=== PATIENT | male | born 1945 | race Two or more races ===

== ENCOUNTER → 2016-11-07 | Outpatient (CLI) | payer MEDICARE, MEDICAID ==
[~2016-11-07] MED LIST: AML5T PO; ATEN50TA PO; HYDR25TA4 PO; NOR10T PO
== END | disposition home or self-care (01) ==
LOC: Rad HDHVI 09:14
PROVIDERS: ATTEND Internal Medicine Cardiovascular Disease
DX: K86.89 Other specified diseases of pancreas (principal)
CPT/HCPCS: 93306

== ENCOUNTER → 2016-12-29 | Outpatient (CLI) | payer MEDICARE, MEDICAID ==
[2016-12-29 12:52] LABS: Basophils # (auto) 0 uL; Basophils % (auto) 0.5 % (0.0-2.0); CONDITION Y; Eosinophils # (auto) 0.1 uL; Eosinophils % (auto) 1.6 % (0.0-7.0); Hematocrit 50.7 % (41.0-53.0); Lymphocytes # (auto) 1.4 uL; Lymphocytes % (auto) 14.8 % (10.0-50.0); Mean Corpuscular Hemoglobin 30.8 pg (28.0-32.0); Mean Corpuscular Hgb Conc. 33.6 g/dL (32.0-36.0); Mean Corpuscular Volume 91.6 fL (80.0-100.0); Mean Platelet Volume 8.1 fL (7.4-10.4); Monocytes # (auto) 0.7 uL; Neutrophils # (auto) 6.9 uL; Neutrophils % (auto) 75.1 % (37.0-80.0); Platelet Count (auto) 269 10^3/uL (140-450); Red Cell Distribution Width 15.4 % (11.6-16.0); White Blood Cell 9.2 10^3/uL (4.4-10.8)
[2016-12-29 12:58] LABS: Albumin 4.2 g/dL (3.4-5.0); BUN/Creatinine Ratio 20.4; Bilirubin, Direct 0.5 mg/dL (0-0.2); Bilirubin, Total 2.8 mg/dL (0.2-1.0); Calcium 9.2 mg/dL (8.5-10.1); Potassium 4.4 mmol/L (3.5-5.1); Total Protein 8.4 g/dL (6.4-8.2)
[2016-12-29 13:15] LABS: Urine Bilirubin Negative (Negative); Urine Blood Negative /uL (Negative); Urine Color PINK (Yellow); Urine Glucose Normal (Normal); Urine Ketone Negative (Negative); Urine Nitrite Negative (Negative); Urine Urobilinogen Normal (Negative)
== END | disposition home or self-care (01) ==
LOC: LAB 08:49
PROVIDERS: ATTEND Internal Medicine Cardiovascular Disease
DX: I10 Essential (primary) hypertension (principal); E78.00 Pure hypercholesterolemia, unspecified; K74.1 Hepatic sclerosis; E11.9 Type 2 diabetes mellitus without complications; R97.20 Elevated prostate specific antigen [PSA]; R53.81 Other malaise; E03.9 Hypothyroidism, unspecified; D64.9 Anemia, unspecified; E55.9 Vitamin D deficiency, unspecified; N39.0 Urinary tract infection, site not specified
CPT/HCPCS: 36415; 80048; 80061; 80076; 81003; 82306; 83036; 84153; 84403; 84443; 85025; 87086

== ENCOUNTER → 2017-02-05 | Outpatient (CLI) | payer MEDICARE, MEDICAID ==
[2017-02-05 16:38] LABS: BUN/Creatinine Ratio 18.8; Calcium 9.3 mg/dL (8.5-10.1); Magnesium 2.5 mg/dL (1.6-2.6); Potassium 3.7 mmol/L (3.5-5.1)
== END | disposition home or self-care (01) ==
LOC: LAB 12:26
PROVIDERS: ATTEND Internal Medicine Cardiovascular Disease
DX: I10 Essential (primary) hypertension (principal); E83.40 Disorders of magnesium metabolism, unspecified
CPT/HCPCS: 36415; 80048; 83735

== ENCOUNTER → 2017-03-02 | Outpatient (CLI) | payer MEDICARE, MEDICAID ==
[~2017-03-02] VITALS: Ht 165.1 cm; Wt 72.6 kg
[~2017-03-02] MED LIST changes: +ADENOSINE 61 MG in GIVE UN-DILUTED 0 ML IV ONE; +ADENOSINE 90 MG/30 ML INJ IV ONE
== END | disposition home or self-care (01) ==
LOC: Rad HDHVI 08:17
PROVIDERS: ATTEND Internal Medicine Cardiovascular Disease
DX: I11.0 Hypertensive heart disease with heart failure (principal); I50.9 Heart failure, unspecified; I20.9 Angina pectoris, unspecified; E78.00 Pure hypercholesterolemia, unspecified
CPT/HCPCS: 78452; 93005; 96374; 96375; A9500; J0153

== ENCOUNTER → 2018-01-02 | Outpatient (CLI) | payer MEDICARE, MEDICAID ==
[~2018-01-02] MED LIST changes: -ADENOSINE 61 MG in GIVE UN-DILUTED 0 ML IV ONE; -ADENOSINE 90 MG/30 ML INJ IV ONE
== END | disposition home or self-care (01) ==
LOC: Rad HDHVI 09:46
PROVIDERS: ATTEND Internal Medicine Cardiovascular Disease
DX: M47.892 Other spondylosis, cervical region (principal); I11.0 Hypertensive heart disease with heart failure; I50.23 Acute on chronic systolic (congestive) heart failure; I48.0 Paroxysmal atrial fibrillation; E78.00 Pure hypercholesterolemia, unspecified
CPT/HCPCS: 72040

== ENCOUNTER → 2018-01-22 | Outpatient (CLI) | payer MEDICARE, MEDICAID | END | disposition home or self-care (01) | LOC: Rad HDHVI 15:22 | PROVIDERS: ATTEND Internal Medicine Cardiovascular Disease | DX: I67.2 Cerebral atherosclerosis (principal); I67.82 Cerebral ischemia; I07.1 Rheumatic tricuspid insufficiency; I25.5 Ischemic cardiomyopathy; I48.0 Paroxysmal atrial fibrillation; I50.23 Acute on chronic systolic (congestive) heart failure; Z88.8 Allergy status to other drugs, medicaments and biological substances; Z79.899 Other long term (current) drug therapy | CPT/HCPCS: 70450; 93306 ==

== ENCOUNTER → 2018-02-18 | Outpatient (CLI) | payer MEDICARE, MEDICAID ==
[~2018-02-18] MED LIST changes: +FEBU40TA PO; +INDO25CA14 PO; +MAGN400T5 PO; +RIV15T PO; +SACU1TAB PO
[2018-02-18 09:20] VITALS: BP 120/64
[2018-02-18 09:50] VITALS: BP 119/74
[2018-02-18 12:53] LABS: Partial Thromboplastin Time 28.8 sec (23.78-33.04); Prothrombin Time 10.7 sec (9.27-12.13)
[2018-02-18 13:11] LABS: Basophils # (auto) 0 uL; Basophils % (auto) 0.5 % (0.0-2.0); Eosinophils # (auto) 0.2 uL; Eosinophils % (auto) 2.6 % (0.0-7.0); Hematocrit 49.7 % (41.0-53.0); Hemoglobin 16.3 g/dL (13.5-17.5); Lymphocytes # (auto) 1.2 uL; Mean Corpuscular Hemoglobin 30.2 pg (28.0-32.0); Mean Corpuscular Hgb Conc. 32.8 g/dL (32.0-36.0); Mean Corpuscular Volume 92.2 fL (80.0-100.0); Monocytes # (auto) 0.9 uL; Monocytes % (auto) 9.6 % (0.0-12.0); Neutrophils # (auto) 6.8 uL; Neutrophils % (auto) 74.3 % (37.0-80.0); Platelet Count (auto) 190 10^3/uL (140-450); Red Blood Cells 5.39 10^6/uL (4.5-5.90); White Blood Cell 9.1 10^3/uL (4.4-10.8)
[2018-02-18 13:43] LABS: BUN/Creatinine Ratio 17.4; Calcium 8.7 mg/dL (8.5-10.1)
== END | disposition home or self-care (01) ==
LOC: Rad HDHVI 09:04
PROVIDERS: ATTEND Internal Medicine Cardiovascular Disease
DX: Z01.818 Encounter for other preprocedural examination (principal); I10 Essential (primary) hypertension; L92.9 Granulomatous disorder of the skin and subcutaneous tissue, unspecified; D64.9 Anemia, unspecified; R79.1 Abnormal coagulation profile; I42.9 Cardiomyopathy, unspecified; I51.7 Cardiomegaly; R94.31 Abnormal electrocardiogram [ECG] [EKG]
CPT/HCPCS: 36415; 71046; 80048; 85025; 85610; 85730; 93005; G0463

== ENCOUNTER 2018-02-21 06:58 | Inpatient (IN) | payer MEDICARE, MEDICAID ==
[~2018-02-21] VITALS: Ht 165.1 cm; Wt 73.9 kg
[2018-02-21] MEDS ORDERED: ceFAZolin 1GM/50ML 50 ML IV ONE (07:54)
[2018-02-21] MEDS ORDERED: LIDOCAINE 2%HCL (LOCAL ANESTH.) INJ 20ML MDV ONE (08:00)
[2018-02-21] MEDS ORDERED: IOHEXOL 350 MG/ML 100ML IJ ONE ×2 (08:01→09:22)
[2018-02-21] MEDS ORDERED: fentaNYL CITRATE 100 MCG/2 ML VL ONE (09:11)
[2018-02-21] MEDS ORDERED: VANCOMYCIN HCL 1000 MG VL ONE (09:11)
[2018-02-21] MEDS ORDERED: MIDAZOLAM HCL 1MG/1ML-2 ML VIAL ONE (09:12)
[2018-02-21] MEDS ORDERED: VANCOMYCIN 1GM/250ML 250 ML IV ONE ×2 (09:12→21:51)
[2018-02-21] MEDS ORDERED: LIDOCAINE W/ EPINEPHRINE 2% INJ 20ML VIAL ONE (10:27)
[2018-02-21] MEDS ORDERED: ACETAMINOPHEN 325 MG TAB PO PRN (11:00)
[2018-02-21] MEDS ORDERED: MORPHINE SULFATE 4 MG/ML SYR/VIAL IV PRN (11:00)
[2018-02-21] MEDS ORDERED: NITROGLYCERIN 0.4 MG SL TAB SL PRN (11:00)
[2018-02-21] MEDS: MAGNESIUM OXIDE 400 MG TAB PO SCH (11:30)
[2018-02-21] MEDS ORDERED: SACUBITRIL-VALSARTAN 24mg/26mg TAB PO SCH (11:45)
[2018-02-21] MEDS ORDERED: HCTZ 25 MG TAB PO SCH (12:00)
[2018-02-21] MEDS: HYDROcodone-ACET 10/325MG TAB PO PRN ×2 (12:15→19:00)
[2018-02-21 14:00] VITALS: BP 122/68
[2018-02-21 14:46] VITALS: BP 122/68
[2018-02-21 17:00] VITALS: BP 125/83
[2018-02-21] MEDS: VANCOMYCIN 1GM/250ML 250 ML IV SCH (21:48)
[2018-02-21] MEDS: SACUBITRIL-VALSARTAN 24mg/26mg TAB PO SCH ×2 (21:48→21:55)
[2018-02-21 22:00] VITALS: BP 139/85
[2018-02-22 05:00] VITALS: BP 120/75
[2018-02-22] MEDS: HYDROcodone-ACET 10/325MG TAB PO PRN ×2 (08:09→16:14)
[2018-02-22 09:13] VITALS: BP 125/83
[2018-02-22] MEDS ORDERED: Febuxostat (Uloric) 40MG TAB PO SCH (10:00)
[2018-02-22] MEDS ORDERED: ATENOLOL 50 MG TAB PO SCH (10:00)
[2018-02-22] MEDS ORDERED: HCTZ 25 MG TAB PO SCH (10:00)
[2018-02-22] MEDS: VANCOMYCIN 1GM/250ML 250 ML IV SCH (10:25)
[2018-02-22] MEDS: MAGNESIUM OXIDE 400 MG TAB PO SCH (11:18)
[2018-02-22 12:20] VITALS: BP 114/73
[2018-02-22 15:21] VITALS: BP 118/60
[2018-02-22 16:43] VITALS: BP 118/77
[2018-02-23] MEDS ORDERED: amLODIPine BESYLATE 5 MG TAB PO SCH (10:00)
== END 2018-02-22 17:14 | disposition home or self-care (01) | DRG 226 ==
LOC: CATH 06:58 → TELE-EAST 06:59
PROVIDERS: ADMIT Internal Medicine Cardiovascular Disease; ATTEND Internal Medicine Cardiovascular Disease
PROC: 0JH608Z Insertion of Defibrillator Generator into Chest Subcutaneous Tissue and Fascia, Open Approach (ICD-10-PCS; principal; 2018-02-21)
PROC: 02HK3KZ Insertion of Defibrillator Lead into Right Ventricle, Percutaneous Approach (ICD-10-PCS; 2018-02-21)
PROC: 02HL3KZ Insertion of Defibrillator Lead into Left Ventricle, Percutaneous Approach (ICD-10-PCS; 2018-02-21)
PROC: 02H63KZ Insertion of Defibrillator Lead into Right Atrium, Percutaneous Approach (ICD-10-PCS; 2018-02-21)
DX: I42.9 Cardiomyopathy, unspecified (principal); I50.23 Acute on chronic systolic (congestive) heart failure; D68.59 Other primary thrombophilia; I11.0 Hypertensive heart disease with heart failure; I48.2 Chronic atrial fibrillation; Z95.810 Presence of automatic (implantable) cardiac defibrillator
CPT/HCPCS: 33225; 33249; 36415; 71045; 71046; 80048; 85025; 85610; 85730; 93005; 99152; C1769; G0463; J0690; J2250

== ENCOUNTER → 2018-03-14 | Outpatient (CLI) | payer MEDICARE, MEDICAID | END | disposition home or self-care (01) | LOC: Rad HDHVI 14:56 | PROVIDERS: ATTEND Internal Medicine Cardiovascular Disease | DX: I25.5 Ischemic cardiomyopathy (principal); I50.23 Acute on chronic systolic (congestive) heart failure | CPT/HCPCS: 93306 ==

== ENCOUNTER → 2018-05-15 | Outpatient (CLI) | payer MEDICARE, MEDICAID ==
[~2018-05-15] MED LIST changes: +AMIO400T3 PO; +DIGO0.1262 PO; +RIVA20TA PO
[2018-05-15 14:35] VITALS: BP 143/78
[2018-05-15 14:53] VITALS: BP 124/83
[2018-05-15 16:22] LABS: Calcium 8.5 mg/dL (8.5-10.1); Potassium 3.8 mmol/L (3.5-5.1)
[2018-05-15 16:23] LABS: Basophils # (auto) 0.1 uL; Basophils % (auto) 0.6 % (0.0-2.0); Eosinophils # (auto) 0.1 uL; Eosinophils % (auto) 1.7 % (0.0-7.0); Hematocrit 50.4 % (41.0-53.0); Lymphocytes # (auto) 1.9 uL; Lymphocytes % (auto) 22.7 % (10.0-50.0); Mean Corpuscular Hgb Conc. 33.6 g/dL (32.0-36.0); Mean Corpuscular Volume 98.2 fL (80.0-100.0); Monocytes # (auto) 0.8 uL; Monocytes % (auto) 9.4 % (0.0-12.0); Neutrophils # (auto) 5.6 uL; Neutrophils % (auto) 65.6 % (37.0-80.0); Nucleated Red Blood Cells % 0.2 %; Platelet Count (auto) 220 10^3/uL (140-450); Red Blood Cells 5.13 10^6/uL (4.5-5.90); Red Cell Distribution Width 16.7 % (11.8-14.3); White Blood Cell 8.5 10^3/uL (4.4-10.8)
[2018-05-15 16:24] LABS: BUN/Creatinine Ratio 10.2
[2018-05-15 16:40] LABS: INR 1.6 (0.9-1.15); Partial Thromboplastin Time 43.6 sec (23.78-33.04); Prothrombin Time 16.7 sec (9.27-12.13)
== END | disposition home or self-care (01) ==
LOC: Rad HDHVI 13:35
PROVIDERS: ATTEND Internal Medicine Cardiovascular Disease
DX: Z01.812 Encounter for preprocedural laboratory examination (principal); I11.0 Hypertensive heart disease with heart failure; I50.9 Heart failure, unspecified; I48.91 Unspecified atrial fibrillation; D64.9 Anemia, unspecified; R79.1 Abnormal coagulation profile
CPT/HCPCS: 36415; 71046; 80048; 85025; 85610; 85730; 93005; G0463

== ENCOUNTER 2018-05-16 12:07 | Day surgery (SDC) | payer MEDICARE, MEDICAID ==
[~2018-05-16] VITALS: Ht 165.1 cm; Wt 68.0 kg
[~2018-05-16 12:07] MED LIST changes: -AML5T PO; -DIGO0.1262 PO; -FEBU40TA PO; -HYDR25TA4 PO; -MAGN400T5 PO; -RIVA20TA PO
[2018-05-16] MEDS ORDERED: FLUMAZENIL 0.1 MG/ML INJ 10ML MDV IV ONE (12:30)
[2018-05-16] MEDS ORDERED: MIDAZOLAM HCL 1MG/1ML-2 ML VIAL IV ONE (12:30)
[2018-05-16] MEDS ORDERED: DIGO0.1262 PO (12:34)
[2018-05-16] MEDS ORDERED: RIVA20TA PO (12:34)
[2018-05-16] MEDS ORDERED: NALOXONE HCL 0.4 MG/ML VIAL ONE (13:30)
[2018-05-16] MEDS ORDERED: fentaNYL CITRATE 100 MCG/2 ML VL ONE (13:31)
== END 2018-05-16 15:00 | disposition home or self-care (01) ==
LOC: CATH 12:07
PROVIDERS: ATTEND Internal Medicine Cardiovascular Disease
DX: I48.91 Unspecified atrial fibrillation (principal); I42.9 Cardiomyopathy, unspecified; I10 Essential (primary) hypertension; I25.2 Old myocardial infarction; I73.9 Peripheral vascular disease, unspecified; M10.9 Gout, unspecified; Z82.49 Family history of ischemic heart disease and other diseases of the circulatory system; Z86.73 Personal history of transient ischemic attack (TIA), and cerebral infarction without residual deficits
CPT/HCPCS: 92960; J2250; J7030

== ENCOUNTER → 2018-05-31 | Outpatient (CLI) | payer MEDICARE, MEDICAID ==
[~2018-05-31] MED LIST changes: +CYANOCOBALAMIN (B-12) 1000 MCG/1 ML VIAL IM ONE; +CYANOCOBALAMIN (B-12) 1000 MCG/1 ML VIAL ONE; +DIGO0.1262 PO; -INDO25CA14 PO; +MVI in SODIUM CHLORIDE 0.9% 1,010 ML ONE; -RIV15T PO; +RIVA20TA PO; +THIAMINE INJ 100 MG, MULTIPLE VITAMIN 10 ML, FOLIC ACID 1 MG, MAGNESIUM SULF SDV 50% 8 ... IV ONE
[2018-05-31 14:59] VITALS: BP 79/43
--- NOTE | 2018-05-31 14:59 | NUR ---
PATIENT IN CLINIC FOR DIZZYNESS AND FALL AT HOME. PATIENT HAD A CARDIOVERSION ABOUT 2 WEEKS AGO, PATIENT HAS AN AICD. PATIENT UNAWARE OF PACEMAKER BRAND. PATIENT EDUCATED THAT HE HAS A BIOTRONIK PACEMAKER, PT AND DAUGHTER VERBALIZED UNDERSTANDING.
--- NOTE | 2018-05-31 15:20 | NUR ---
IV insertion IV access obtained, via clean sterile technique by inserting 20 gauge catheter at RAC after 1 attempt(s). IV secured properly. No trauma to site. Patient tolerated procedure well. LABS DRAWN AND SENT TO LAB
[2018-05-31 16:10] LABS: Albumin 3.3 g/dL (3.4-5.0); Calcium 8.1 mg/dL (8.5-10.1); Magnesium 2.4 mg/dL (1.6-2.6); Potassium 3.8 mmol/L (3.5-5.1)
[2018-05-31 16:16] LABS: Basophils # (auto) 0.1 uL; Basophils % (auto) 0.5 % (0.0-2.0); Eosinophils # (auto) 0.1 uL; Eosinophils % (auto) 1.5 % (0.0-7.0); Hematocrit 49.8 % (41.0-53.0); Hemoglobin 16.8 g/dL (13.5-17.5); Lymphocytes # (auto) 2.1 uL; Lymphocytes % (auto) 21.7 % (10.0-50.0); Mean Corpuscular Hemoglobin 33.3 pg (28.0-32.0); Mean Corpuscular Hgb Conc. 33.7 g/dL (32.0-36.0); Mean Corpuscular Volume 98.8 fL (80.0-100.0); Monocytes % (auto) 10.5 % (0.0-12.0); Neutrophils # (auto) 6.3 uL; Neutrophils % (auto) 65.8 % (37.0-80.0); Nucleated Red Blood Cells % 0.1 %; Platelet Count (auto) 197 10^3/uL (140-450); Red Blood Cells 5.04 10^6/uL (4.5-5.90); Red Cell Distribution Width 15.4 % (11.8-14.3); White Blood Cell 9.6 10^3/uL (4.4-10.8)
[2018-05-31 16:17] LABS: BUN/Creatinine Ratio 15.2; Total Protein 6.2 g/dL (6.4-8.2)
--- NOTE | 2018-05-31 16:30 | NUR ---
DR HAMMER AWARE OF EKG, LAB AND INTERROGATION RESULTS.
[2018-05-31 17:15] VITALS: BP 95/53
--- NOTE | 2018-05-31 17:15 | NUR ---
CHF CLINIC Discharge Instructions See e-MAR for any mediations given with this visit. Patient education given on disease process. Patient verbalized understanding. Previous labs reviewed. Patient discharged in stable condition with after care instructions and follow up appointment 06/01/18 AT 1020. NOTE 0.9 NS WITH MVI [id number] ADMIN BY DONALD KELLY B12 IM R DELTOID ADMIN BY MICHAEL KELLY PATIENT EDUCATED TO STOP TAKING DIGOXIN, DAUGHTER VERBALIZED UNDERSTANDING. PATIENT TO SEE DR HAMMER TOMORROW FOR FURTHER MEDICATION ADJUSTMENT.
== END | disposition home or self-care (01) ==
LOC: CHF HDHVI 15:03
PROVIDERS: ATTEND Internal Medicine Cardiovascular Disease
DX: R42 Dizziness and giddiness (principal); R53.1 Weakness; I48.2 Chronic atrial fibrillation; D64.9 Anemia, unspecified; E83.40 Disorders of magnesium metabolism, unspecified; I11.0 Hypertensive heart disease with heart failure; I50.22 Chronic systolic (congestive) heart failure; I42.9 Cardiomyopathy, unspecified; I25.2 Old myocardial infarction; E78.00 Pure hypercholesterolemia, unspecified; E03.9 Hypothyroidism, unspecified; E78.5 Hyperlipidemia, unspecified; M06.9 Rheumatoid arthritis, unspecified; K21.9 Gastro-esophageal reflux disease without esophagitis; Z79.899 Other long term (current) drug therapy; Z95.810 Presence of automatic (implantable) cardiac defibrillator; Z86.73 Personal history of transient ischemic attack (TIA), and cerebral infarction without residual deficits
CPT/HCPCS: 36415; 80053; 80162; 83735; 83880; 84484; 85025; 93005; 96365; 96366; 96372; G0463; J3411; J3420; J3475

== ENCOUNTER → 2018-06-10 | Outpatient (CLI) | payer MEDICARE, MEDICAID ==
[~2018-06-10] VITALS: Ht 30.5 cm; Wt 0.5 kg
[~2018-06-10] MED LIST changes: -MVI in SODIUM CHLORIDE 0.9% 1,010 ML ONE; -THIAMINE INJ 100 MG, MULTIPLE VITAMIN 10 ML, FOLIC ACID 1 MG, MAGNESIUM SULF SDV 50% 8 ... IV ONE
[2018-06-10 10:11] VITALS: BP 97/63
--- NOTE | 2018-06-10 10:11 | NUR ---
CHF PT TO CHF CLINIC FOR F/U AFTER 06/03/18 VISIT. MD HAMMER ORDERED LABS AND VIT B 12 INJECTION FOR RECENT MALAISE AND FATIGUE.
[2018-06-10 10:55] VITALS: BP 95/51
--- NOTE | 2018-06-10 10:55 | NUR ---
CHF Discharge Instructions See e-MAR for any mediations given with this visit. Patient education given on disease process. Patient verbalized understanding. Previous labs reviewed. Patient discharged in stable condition with after care instructions and follow up appointment. Addendum: 06/10/18 at 1146 by Pili Burns RN [place] CHF FOLLOW UP IN 2 WEEKS.
[2018-06-10 11:53] LABS: Basophils # (auto) 0.1 uL; Eosinophils # (auto) 0.2 uL; Monocytes # (auto) 0.7 uL; Neutrophils # (auto) 5.2 uL; White Blood Cell 7.4 10^3/uL (4.4-10.8)
[2018-06-10 11:55] LABS: Basophils % (auto) 1.2 % (0.0-2.0); Eosinophils % (auto) 2.4 % (0.0-7.0); Hematocrit 46.6 % (41.0-53.0); Hemoglobin 15.8 g/dL (13.5-17.5); Lymphocytes # (auto) 1.3 uL; Mean Corpuscular Hemoglobin 33.6 pg (28.0-32.0); Mean Corpuscular Volume 98.8 fL (80.0-100.0); Monocytes % (auto) 9.2 % (0.0-12.0); Neutrophils % (auto) 69.2 % (37.0-80.0); Platelet Count (auto) 240 10^3/uL (140-450); Red Blood Cells 4.72 10^6/uL (4.5-5.90); Red Cell Distribution Width 15.8 % (11.8-14.3)
[2018-06-10 12:03] LABS: Anion Gap 6 (5-15); Blood Urea Nitrogen 22 mg/dL (7-18); Calcium 8.1 mg/dL (8.5-10.1); Carbon Dioxide 28 mmol/L (21-32); Chloride 105 mmol/L (98-107); Potassium 3.6 mmol/L (3.5-5.1); Sodium 139 mmol/L (136-145)
[2018-06-10 12:06] LABS: BUN/Creatinine Ratio 19.6; GFR African American > 60 mL/min; GFR Non-African American > 60 mL/min; Glucose 88 mg/dL (74-106)
== END | disposition home or self-care (01) ==
LOC: CHF HDHVI 10:03
PROVIDERS: ATTEND Internal Medicine Cardiovascular Disease
DX: D64.9 Anemia, unspecified (principal); I11.0 Hypertensive heart disease with heart failure; I50.22 Chronic systolic (congestive) heart failure; E11.51 Type 2 diabetes mellitus with diabetic peripheral angiopathy without gangrene; I25.10 Atherosclerotic heart disease of native coronary artery without angina pectoris; I25.2 Old myocardial infarction; I48.2 Chronic atrial fibrillation; M06.9 Rheumatoid arthritis, unspecified; K21.9 Gastro-esophageal reflux disease without esophagitis; K74.1 Hepatic sclerosis; E03.9 Hypothyroidism, unspecified; E29.1 Testicular hypofunction; I25.5 Ischemic cardiomyopathy; E55.9 Vitamin D deficiency, unspecified; M19.90 Unspecified osteoarthritis, unspecified site; R53.81 Other malaise; R53.83 Other fatigue; Z79.899 Other long term (current) drug therapy; Z95.810 Presence of automatic (implantable) cardiac defibrillator; Z86.73 Personal history of transient ischemic attack (TIA), and cerebral infarction without residual deficits
CPT/HCPCS: 36415; 80048; 82306; 83036; 83880; 84403; 85025; 96372; G0463; J3420

== ENCOUNTER → 2018-06-17 | Outpatient (CLI) | payer MEDICARE, MEDICAID ==
[~2018-06-17] MED LIST changes: -CYANOCOBALAMIN (B-12) 1000 MCG/1 ML VIAL IM ONE; -CYANOCOBALAMIN (B-12) 1000 MCG/1 ML VIAL ONE
--- NOTE | 2018-06-17 10:10 | NUR ---
CHF PT TO CHF CLINIC FOR REEVAL OF ALL BODY SYSTEMS. PT STATES BM NORMAL WITH AMITZIA, APPETITE AND ENERGY LEVEL INCREASED AND HAS F/U WITH DR. JAQUELIN KOCH 06/19/18
--- NOTE | 2018-06-17 10:27 | NUR ---
CHF Clinic Provider Clinic Provider DR. HAMMER pt with new orders received and carried out. CARDIODYNAMICS per MD order.
[2018-06-17 10:50] VITALS: BP 128/58
--- NOTE | 2018-06-17 10:50 | NUR ---
CHF Discharge Instructions See e-MAR for any mediations given with this visit. Patient education given on disease process. Patient verbalized understanding. Previous labs reviewed. Patient discharged in stable condition with after care instructions and follow up appointment. FOLLOW UPMIN 1 MONTH FOR MD ORDERED LABS AND REPEAT CARDIODYNAMICS. Addendum: 06/17/18 at 1118 by Pili Burns RN [place] PT VERB UNDERSTANDING VIA DIET CLERK CINDY BOBO
== END | disposition home or self-care (01) ==
LOC: CHF HDHVI 10:07
PROVIDERS: ATTEND Internal Medicine Cardiovascular Disease
DX: I50.9 Heart failure, unspecified (principal); I25.10 Atherosclerotic heart disease of native coronary artery without angina pectoris; I48.91 Unspecified atrial fibrillation
CPT/HCPCS: G0463

== ENCOUNTER → 2018-07-02 | Outpatient (CLI) | payer MEDICARE, MEDICAID ==
[~2018-07-02] MED LIST changes: +READI-CAT 2 (BARIUM SULF)(VANILLA SMOOTHIE) 450ML ONE
== END | disposition home or self-care (01) ==
LOC: CT 08:24
PROVIDERS: ATTEND Internal Medicine Cardiovascular Disease
DX: K80.80 Other cholelithiasis without obstruction (principal)
CPT/HCPCS: 74176

== ENCOUNTER → 2018-07-22 | Outpatient (CLI) | payer MEDICARE, MEDICAID ==
[~2018-07-22] MED LIST changes: -READI-CAT 2 (BARIUM SULF)(VANILLA SMOOTHIE) 450ML ONE
[2018-07-22 10:02] VITALS: BP 102/62
--- NOTE | 2018-07-22 10:02 | NUR ---
CHF PT ARRIVED TO CHF CLINIC FOR FOLLOW UP AND CARDIODYNAMICS. VSS OBTAINE PLAN OF CARE DISCUSSED PT VERBALIZED UNDERSTANDING
--- NOTE | 2018-07-22 10:50 | NUR ---
MEDICATION MD ORDERED AMITIZA 24MG SAMPLE. PROVIDED TO PATIENT DISCUSSED INDICATIONS, SIDE EFFECTS PT VERBALIZED UNDERSTANDING
--- NOTE | 2018-07-22 10:50 | NUR ---
CHF CARDIODYNAMICS STUDY PERFORMED, REVIEWED WITH PATIENT
[2018-07-22 11:22] VITALS: BP 101/66
--- NOTE | 2018-07-22 11:22 | NUR ---
Discharge Instructions See e-MAR for any mediations given with this visit. Patient education given on disease process. Patient verbalized understanding. Previous labs reviewed. Patient discharged in stable condition with after care instructions and follow up appointment.
[2018-07-22 16:13] LABS: Basophils # (auto) 0.1 uL; Basophils % (auto) 0.7 % (0.0-2.0); Eosinophils # (auto) 0.1 uL; Eosinophils % (auto) 1.7 % (0.0-7.0); Hemoglobin 15.7 g/dL (13.5-17.5); Lymphocytes # (auto) 1.4 uL; Mean Corpuscular Hemoglobin 33.7 pg (28.0-32.0); Mean Corpuscular Hgb Conc. 34.1 g/dL (32.0-36.0); Monocytes # (auto) 0.6 uL; Monocytes % (auto) 7.7 % (0.0-12.0); Neutrophils # (auto) 5.4 uL; Neutrophils % (auto) 71.9 % (37.0-80.0); Nucleated Red Blood Cells % 0.3 %; Platelet Count (auto) 206 10^3/uL (140-450); Red Blood Cells 4.64 10^6/uL (4.5-5.90); White Blood Cell 7.6 10^3/uL (4.4-10.8)
[2018-07-22 16:14] LABS: Albumin 3.5 g/dL (3.4-5.0); BUN/Creatinine Ratio 14.6; Calcium 8.2 mg/dL (8.5-10.1); Potassium 3.4 mmol/L (3.5-5.1)
[2018-07-22 16:17] LABS: Bilirubin, Total 1.4 mg/dL (0.2-1.0); Total Protein 6.6 g/dL (6.4-8.2)
== END | disposition home or self-care (01) ==
LOC: CHF HDHVI 10:01
PROVIDERS: ATTEND Internal Medicine Cardiovascular Disease
DX: D64.9 Anemia, unspecified (principal); I10 Essential (primary) hypertension
CPT/HCPCS: 36415; 80053; 85025; 93701; G0463

== ENCOUNTER → 2018-08-19 | Outpatient (CLI) | payer MEDICARE, MEDICAID ==
[2018-08-19 10:00] VITALS: BP_SYST 113; BP_SYST 116; BP_DIAS 70; BP_DIAS 75
--- NOTE | 2018-08-19 10:00 | NUR ---
PATIENT ARRUIVED IN CHF CLINIC FOR FOLLOW UP, VITAL SIGNS ARE STABLE
[2018-08-19 16:09] LABS: Basophils # (auto) 0.1 uL; Basophils % (auto) 0.8 % (0.0-2.0); Eosinophils # (auto) 0.1 uL; Eosinophils % (auto) 1.3 % (0.0-7.0); Hematocrit 45.1 % (41.0-53.0); Hemoglobin 15.3 g/dL (13.5-17.5); Lymphocytes # (auto) 0.9 uL; Lymphocytes % (auto) 14.4 % (10.0-50.0); Mean Corpuscular Hemoglobin 33.1 pg (28.0-32.0); Mean Corpuscular Volume 97.4 fL (80.0-100.0); Monocytes # (auto) 0.6 uL; Monocytes % (auto) 9.3 % (0.0-12.0); Neutrophils # (auto) 4.6 uL; Neutrophils % (auto) 74.2 % (37.0-80.0); Nucleated Red Blood Cells % 0.2 %; Platelet Count (auto) 191 10^3/uL (140-450); Red Blood Cells 4.63 10^6/uL (4.5-5.90); Red Cell Distribution Width 14.4 % (11.8-14.3); White Blood Cell 6.3 10^3/uL (4.4-10.8)
[2018-08-19 16:17] LABS: BUN/Creatinine Ratio 16.5; Calcium 8.5 mg/dL (8.5-10.1); Potassium 3.7 mmol/L (3.5-5.1)
== END | disposition home or self-care (01) ==
LOC: CHF HDHVI 10:24
PROVIDERS: ATTEND Internal Medicine Cardiovascular Disease
DX: E83.40 Disorders of magnesium metabolism, unspecified (principal); I11.0 Hypertensive heart disease with heart failure; I50.23 Acute on chronic systolic (congestive) heart failure; D64.9 Anemia, unspecified
CPT/HCPCS: 36415; 80048; 83735; 83880; 85025; 93701; G0463

== ENCOUNTER → 2018-09-10 | Outpatient (CLI) | payer MEDICARE, MEDICAID ==
[~2018-09-10] MED LIST changes: +CYANOCOBALAMIN (B-12) 1000 MCG/1 ML VIAL IM ONE; +CYANOCOBALAMIN (B-12) 1000 MCG/1 ML VIAL ONE
[2018-09-10 11:56] VITALS: BP_SYST 107; BP_SYST 126; BP_DIAS 67; BP_DIAS 72
--- NOTE | 2018-09-10 11:56 | NUR ---
CHF 6 MWT AND CARDIODYNAMICS DONE AND REVIEWED. TOLERATED WELL. VS WNL. Clinic Provider Clinic Provider into see pt with new orders received and carried out. MEDICATION ADMINISTRATION VIT B12 1000 MCG IM X 1 AT 1150
[2018-09-10 16:28] LABS: Albumin 3.5 g/dL (3.4-5.0); BUN/Creatinine Ratio 12.6; Calcium 8.6 mg/dL (8.5-10.1); Magnesium 2.4 mg/dL (1.6-2.6); Potassium 3.8 mmol/L (3.5-5.1)
[2018-09-10 16:41] LABS: Bilirubin, Total 1.3 mg/dL (0.2-1.0); Total Protein 6.7 g/dL (6.4-8.2)
== END | disposition home or self-care (01) ==
LOC: CHF HDHVI 10:08
PROVIDERS: ATTEND Internal Medicine Cardiovascular Disease
DX: D51.9 Vitamin B12 deficiency anemia, unspecified (principal); I49.9 Cardiac arrhythmia, unspecified; I11.0 Hypertensive heart disease with heart failure; I50.23 Acute on chronic systolic (congestive) heart failure; I25.10 Atherosclerotic heart disease of native coronary artery without angina pectoris; G89.29 Other chronic pain; E83.40 Disorders of magnesium metabolism, unspecified; E11.9 Type 2 diabetes mellitus without complications
CPT/HCPCS: 36415; 80053; 82607; 83036; 83735; 83880; 96372; G0463; J3420

== ENCOUNTER → 2018-10-08 | Outpatient (CLI) | payer MEDICARE, MEDICAID ==
[2018-10-08 09:25] VITALS: BP 117/78
[2018-10-08 10:15] VITALS: BP 123/71
--- NOTE | 2018-10-08 10:15 | NUR ---
IN TO CLINIC FOR CHF CHECK. AZERI SPEAKING. COMMUNICATION VIA ELECTROPLATING LABORER CINDY. WITHOUT COMPLAINT. WITHOUT DISTRESS. VS WNL. CARDIODYNAMICS DONE AND REVIEWED. Discharge Instructions See e-MAR for any mediations given with this visit. Patient education given on disease process. Patient verbalized understanding. Previous labs reviewed. Patient discharged in stable condition with after care instructions and follow up appointment FOR 11/12/18 AT 0930. MEDICATION ADMINISTRATION VIT B12 1000 MCG IM X 1 TO LEFT DELTOID AT 1015
[2018-10-08 12:14] LABS: Basophils # (auto) 0.1 uL; Basophils % (auto) 1.9 % (0.0-2.0); Eosinophils # (auto) 0.2 uL; Eosinophils % (auto) 3.3 % (0.0-7.0); Hematocrit 45.4 % (41.0-53.0); Hemoglobin 15.3 g/dL (13.5-17.5); Lymphocytes # (auto) 1.1 uL; Lymphocytes % (auto) 19.6 % (10.0-50.0); Mean Corpuscular Hemoglobin 32.2 pg (28.0-32.0); Mean Corpuscular Hgb Conc. 33.7 g/dL (32.0-36.0); Mean Corpuscular Volume 95.4 fL (80.0-100.0); Monocytes # (auto) 0.5 uL; Monocytes % (auto) 8.9 % (0.0-12.0); Neutrophils # (auto) 3.9 uL; Neutrophils % (auto) 66.3 % (37.0-80.0); Nucleated Red Blood Cells % 0.1 %; Platelet Count (auto) 216 10^3/uL (140-450); Red Blood Cells 4.76 10^6/uL (4.5-5.90); Red Cell Distribution Width 14.8 % (11.8-14.3); White Blood Cell 5.9 10^3/uL (4.4-10.8)
[2018-10-08 14:16] LABS: Albumin 3.1 g/dL (3.4-5.0); BUN/Creatinine Ratio 16.1; Calcium 8.7 mg/dL (8.5-10.1); Magnesium 2.1 mg/dL (1.6-2.6); Potassium 3.6 mmol/L (3.5-5.1)
[2018-10-08 14:32] LABS: Bilirubin, Total 0.9 mg/dL (0.2-1.0); Total Protein 6.4 g/dL (6.4-8.2)
== END | disposition home or self-care (01) ==
LOC: CHF HDHVI 09:36
PROVIDERS: ATTEND Internal Medicine Cardiovascular Disease
DX: I11.0 Hypertensive heart disease with heart failure (principal); I50.22 Chronic systolic (congestive) heart failure; D64.9 Anemia, unspecified; E83.40 Disorders of magnesium metabolism, unspecified; I25.10 Atherosclerotic heart disease of native coronary artery without angina pectoris; E11.9 Type 2 diabetes mellitus without complications; G89.29 Other chronic pain
CPT/HCPCS: 36415; 80053; 83735; 83880; 85025; 93701; 96372; G0463; J3420

== ENCOUNTER → 2018-10-22 | Outpatient (CLI) | payer MEDICARE, MEDICAID ==
[~2018-10-22] MED LIST changes: -CYANOCOBALAMIN (B-12) 1000 MCG/1 ML VIAL IM ONE; -CYANOCOBALAMIN (B-12) 1000 MCG/1 ML VIAL ONE
== END | disposition home or self-care (01) ==
LOC: Rad HDHVI 09:38
PROVIDERS: ATTEND Internal Medicine Cardiovascular Disease
DX: I34.0 Nonrheumatic mitral (valve) insufficiency (principal); I25.5 Ischemic cardiomyopathy; I48.0 Paroxysmal atrial fibrillation
CPT/HCPCS: 93306

== ENCOUNTER → 2018-11-11 | Outpatient (CLI) | payer MEDICARE, MEDICAID | END | disposition home or self-care (01) | LOC: Rad HDHVI 10:17 | PROVIDERS: ATTEND Internal Medicine Cardiovascular Disease | DX: I82.729 Chronic embolism and thrombosis of deep veins of unspecified upper extremity (principal); I50.23 Acute on chronic systolic (congestive) heart failure; A53.9 Syphilis, unspecified | CPT/HCPCS: 83880; 93971 ==

== ENCOUNTER → 2018-11-12 | Outpatient (CLI) | payer MEDICARE, MEDICAID ==
[~2018-11-12] MED LIST changes: +CYANOCOBALAMIN (B-12) 1000 MCG/1 ML VIAL IM ONE; +CYANOCOBALAMIN (B-12) 1000 MCG/1 ML VIAL ONE
[2018-11-12 09:30] VITALS: BP 109/74
[2018-11-12 10:50] VITALS: BP 104/67
--- NOTE | 2018-11-12 10:50 | NUR ---
IN TO CLINIC FOR CHF FOLLOWUP. ALL INTERACTION DONE WITH USE OF REGISTERED HEALTH NURSE, PT IS MALAY SPEAKING ONLY. CARDIODYNAMICS DONE AND REVIEWED. CLINIC PROVIDER CONSULTED AND ORDERS RECIEVED AND CARRIED OUT. VS WNL. WITHOUT DISTRESS. DISCHARGED TO SELF CAR IN NO DISTRESS OR DISCOMFORT. MEDICATION ADMINISTRATION VIT B12 1000 MCG IM TO RIGHT DELTOID AT 1045
== END | disposition home or self-care (01) ==
LOC: CHF HDHVI 09:43
PROVIDERS: ATTEND Internal Medicine Cardiovascular Disease
DX: I11.0 Hypertensive heart disease with heart failure (principal); I50.22 Chronic systolic (congestive) heart failure; I25.10 Atherosclerotic heart disease of native coronary artery without angina pectoris; I25.5 Ischemic cardiomyopathy; I48.0 Paroxysmal atrial fibrillation; R53.83 Other fatigue; G89.29 Other chronic pain; E11.9 Type 2 diabetes mellitus without complications
CPT/HCPCS: 96372; G0463; J3420

== ENCOUNTER → 2018-11-19 | Outpatient (CLI) | payer MEDICARE, MEDICAID ==
[~2018-11-19] MED LIST changes: -CYANOCOBALAMIN (B-12) 1000 MCG/1 ML VIAL IM ONE; -CYANOCOBALAMIN (B-12) 1000 MCG/1 ML VIAL ONE
[2018-11-19 12:00] VITALS: BP 125/76
[2018-11-19 12:29] VITALS: BP 137/81
[2018-11-19 16:30] LABS: BUN/Creatinine Ratio 14.2; Basophils # (auto) 0.1 uL; Calcium 8.5 mg/dL (8.5-10.1); Eosinophils # (auto) 0.2 uL; Eosinophils % (auto) 2.3 % (0.0-7.0); Hematocrit 43.7 % (41.0-53.0); Hemoglobin 14.6 g/dL (13.5-17.5); Lymphocytes # (auto) 1.4 uL; Lymphocytes % (auto) 20.5 % (10.0-50.0); Mean Corpuscular Hemoglobin 32.3 pg (28.0-32.0); Mean Corpuscular Hgb Conc. 33.5 g/dL (32.0-36.0); Mean Corpuscular Volume 96.4 fL (80.0-100.0); Monocytes # (auto) 0.7 uL; Monocytes % (auto) 9.7 % (0.0-12.0); Neutrophils # (auto) 4.5 uL; Neutrophils % (auto) 66.5 % (37.0-80.0); Nucleated Red Blood Cells % 0.1 %; Platelet Count (auto) 249 10^3/uL (140-450); Potassium 3.2 mmol/L (3.5-5.1); Red Blood Cells 4.53 10^6/uL (4.5-5.90); Red Cell Distribution Width 16.1 % (11.8-14.3); White Blood Cell 6.8 10^3/uL (4.4-10.8)
[2018-11-19 16:47] LABS: INR 1.01 (0.9-1.15); Partial Thromboplastin Time 28.2 sec (23.64-32.05)
--- NOTE | 2018-11-20 10:02 | NUR ---
LATE ENTRY FOR 11/19/18 @ 1200 PT ARRIVED TO CHF CLINIC FOR PREOP CXR,LABS AND EKG. VSS 0 DISTRESS
--- NOTE | 2018-11-20 10:06 | NUR ---
LATE ENTRY FOR 11/19/18 DISCHARGE Pre-Op Discharge Summary: See e-MAR for any medications given for this visit. Pre-op orders received and carried out per MD of EKG, LABS and chest xrays. Patient given a copy of EKG with instructions to go to [facility] out patient for further follow up care.
== END | disposition home or self-care (01) ==
LOC: Rad HDHVI 10:55
PROVIDERS: ATTEND Internal Medicine Cardiovascular Disease
DX: Z01.818 Encounter for other preprocedural examination (principal); D64.9 Anemia, unspecified; R79.1 Abnormal coagulation profile; I10 Essential (primary) hypertension
CPT/HCPCS: 36415; 71046; 80048; 85025; 85610; 85730; 93005; G0463

== ENCOUNTER 2018-11-21 09:06 | Day surgery (SDC) | payer MEDICARE, MEDICAID ==
[~2018-11-21] VITALS: Ht 165.1 cm; Wt 59.4 kg
[2018-11-21] MEDS ORDERED: MIDAZOLAM HCL 1MG/1ML-2 ML VIAL ONE (13:20)
[2018-11-21] MEDS ORDERED: SODIUM CHL 0.9% 0 ML ONE (13:20)
[2018-11-21] MEDS ORDERED: ANGIOMAX 250 MG VIAL IV ONE (13:20)
[2018-11-21] MEDS ORDERED: fentaNYL CITRATE 100 MCG/2 ML VL ONE (13:20)
[2018-11-21] MEDS ORDERED: LIDOCAINE 2%HCL (LOCAL ANESTH.) INJ 20ML MDV ONE (13:24)
[2018-11-21] MEDS ORDERED: IOHEXOL 350 MG/ML 100ML IJ ONE (13:24)
== END 2018-11-21 16:35 | disposition home or self-care (01) ==
LOC: CATH 09:06
PROVIDERS: ATTEND Internal Medicine Cardiovascular Disease
DX: I25.10 Atherosclerotic heart disease of native coronary artery without angina pectoris (principal); I25.2 Old myocardial infarction; I11.0 Hypertensive heart disease with heart failure; I50.9 Heart failure, unspecified; Z79.899 Other long term (current) drug therapy; Z98.890 Other specified postprocedural states; Z87.891 Personal history of nicotine dependence
CPT/HCPCS: 93460; C1760; C1894; J1644; J2250; J3010; J7030; Q9967; 99152; 99153

== ENCOUNTER → 2018-12-24 | Outpatient (CLI) | payer MEDICARE, MEDICAID ==
[~2018-12-24] MED LIST changes: +CYANOCOBALAMIN (B-12) 1000 MCG/1 ML VIAL IM ONE; +CYANOCOBALAMIN (B-12) 1000 MCG/1 ML VIAL ONE
[2018-12-24 09:19] VITALS: BP 116/73
--- NOTE | 2018-12-24 09:19 | NUR ---
CHF PT ARRIVED AT CHF CLINIC FOR MONTHLY FOLLOW UP. A/O X 3 VSS
[2018-12-24 10:01] VITALS: BP 116/73
--- NOTE | 2018-12-24 10:01 | NUR ---
Discharge Instructions See e-MAR for any mediations given with this visit. Patient education given on disease process. Patient verbalized understanding. Previous labs reviewed. Patient discharged in stable condition with after care instructions and follow up appointment. MEDICATIONS VITAMIN B12 1000 MCG IM X 1
[2018-12-24 12:08] LABS: Basophils # (auto) 0.1 uL; Basophils % (auto) 1.4 % (0.0-2.0); Eosinophils # (auto) 0.2 uL; Eosinophils % (auto) 3.1 % (0.0-7.0); Hematocrit 42.2 % (41.0-53.0); Hemoglobin 14.6 g/dL (13.5-17.5); Lymphocytes # (auto) 1.6 uL; Lymphocytes % (auto) 27.6 % (10.0-50.0); Mean Corpuscular Hgb Conc. 34.7 g/dL (32.0-36.0); Mean Corpuscular Volume 95.1 fL (80.0-100.0); Monocytes # (auto) 0.5 uL; Monocytes % (auto) 9.6 % (0.0-12.0); Neutrophils # (auto) 3.3 uL; Neutrophils % (auto) 58.3 % (37.0-80.0); Nucleated Red Blood Cells % 0.1 %; Platelet Count (auto) 179 10^3/uL (140-450); Red Blood Cells 4.43 10^6/uL (4.5-5.90); Red Cell Distribution Width 15.8 % (11.8-14.3); White Blood Cell 5.7 10^3/uL (4.4-10.8)
[2018-12-24 12:26] LABS: Albumin 3.2 g/dL (3.4-5.0); Calcium 8.1 mg/dL (8.5-10.1); Magnesium 2.1 mg/dL (1.6-2.6); Potassium 3.5 mmol/L (3.5-5.1)
[2018-12-24 12:27] LABS: BUN/Creatinine Ratio 14.9
[2018-12-24 12:30] LABS: Total Protein 6.4 g/dL (6.4-8.2)
== END | disposition home or self-care (01) ==
LOC: CHF HDHVI 09:44
PROVIDERS: ATTEND Internal Medicine Cardiovascular Disease
DX: I11.0 Hypertensive heart disease with heart failure (principal); I50.22 Chronic systolic (congestive) heart failure; I25.10 Atherosclerotic heart disease of native coronary artery without angina pectoris; D64.9 Anemia, unspecified; E83.40 Disorders of magnesium metabolism, unspecified; I25.2 Old myocardial infarction; Z79.899 Other long term (current) drug therapy; Z87.891 Personal history of nicotine dependence
CPT/HCPCS: 36415; 80053; 83735; 83880; 85025; 93701; 96372; G0463; J3420

== ENCOUNTER → 2019-01-21 | Outpatient (CLI) | payer MEDICARE, MEDICAID ==
[~2019-01-21] MED LIST changes: +POTASSIUM CHL 10 Meq TABLET PO ONE; +POTASSIUM CHL 20 Meq TABLET PO ONE
[2019-01-21 09:30] VITALS: BP_SYST 117; BP_SYST 141; BP_DIAS 73; BP_DIAS 75
== END | disposition home or self-care (01) ==
LOC: CHF HDHVI 09:37
PROVIDERS: ATTEND Internal Medicine Cardiovascular Disease
DX: I11.0 Hypertensive heart disease with heart failure (principal); I50.22 Chronic systolic (congestive) heart failure; I25.10 Atherosclerotic heart disease of native coronary artery without angina pectoris; I25.2 Old myocardial infarction; Z79.899 Other long term (current) drug therapy; Z87.891 Personal history of nicotine dependence
CPT/HCPCS: 93701; 96372; G0463; J3420

== ENCOUNTER → 2019-02-18 | Outpatient (CLI) | payer MEDICARE, MEDICAID ==
[~2019-02-18] MED LIST changes: -POTASSIUM CHL 10 Meq TABLET PO ONE; -POTASSIUM CHL 20 Meq TABLET PO ONE
[2019-02-18 10:25] VITALS: BP 140/84
--- NOTE | 2019-02-18 10:25 | NUR ---
CHF CLINIC Discharge Instructions See e-MAR for any mediations given with this visit. Patient education given on disease process. Patient verbalized understanding. Previous labs reviewed. Patient discharged in stable condition with after care instructions and follow up appointment ON 03/04. NOTE B12 IM L DELTOID ADMIN BY CINDY BOBO CARDIODYNAMICS PERFORMED BY CINDY BOBO AND REVIEWED BY DONALD KELLY.
[2019-02-18 12:10] LABS: Calcium 8.5 mg/dL (8.5-10.1); Magnesium 2.3 mg/dL (1.6-2.6); Potassium 3.7 mmol/L (3.5-5.1)
[2019-02-18 12:12] LABS: BUN/Creatinine Ratio 15.6
[2019-02-18 12:20] LABS: Basophils # (auto) 0.1 uL; Basophils % (auto) 1.5 % (0.0-2.0); Eosinophils # (auto) 0.1 uL; Eosinophils % (auto) 2.2 % (0.0-7.0); Hematocrit 44.8 % (41.0-53.0); Hemoglobin 15.2 g/dL (13.5-17.5); Lymphocytes # (auto) 1.1 uL; Lymphocytes % (auto) 17.2 % (10.0-50.0); Mean Corpuscular Hemoglobin 32.3 pg (28.0-32.0); Mean Corpuscular Hgb Conc. 33.9 g/dL (32.0-36.0); Mean Corpuscular Volume 95.3 fL (80.0-100.0); Monocytes # (auto) 0.5 uL; Monocytes % (auto) 7.5 % (0.0-12.0); Neutrophils # (auto) 4.5 uL; Neutrophils % (auto) 71.6 % (37.0-80.0); Nucleated Red Blood Cells % 0.1 %; Platelet Count (auto) 170 10^3/uL (140-450); White Blood Cell 6.3 10^3/uL (4.4-10.8)
== END | disposition home or self-care (01) ==
LOC: CHF HDHVI 10:02
PROVIDERS: ATTEND Internal Medicine Cardiovascular Disease
DX: I11.0 Hypertensive heart disease with heart failure (principal); I50.22 Chronic systolic (congestive) heart failure; I25.10 Atherosclerotic heart disease of native coronary artery without angina pectoris; I25.2 Old myocardial infarction; R53.83 Other fatigue; Z87.891 Personal history of nicotine dependence; Z79.899 Other long term (current) drug therapy
CPT/HCPCS: 36415; 80048; 83036; 83735; 83880; 85025; 93701; 96372; G0463; J3420

== ENCOUNTER → 2019-03-04 | Outpatient (CLI) | payer MEDICARE, MEDICAID ==
[~2019-03-04] MED LIST changes: -CYANOCOBALAMIN (B-12) 1000 MCG/1 ML VIAL IM ONE; -CYANOCOBALAMIN (B-12) 1000 MCG/1 ML VIAL ONE
[2019-03-04 10:25] VITALS: BP 144/84
--- NOTE | 2019-03-04 10:25 | NUR ---
CHF CLINIC Discharge Instructions See e-MAR for any mediations given with this visit. Patient education given on disease process. Patient verbalized understanding. Previous labs reviewed. Patient discharged in stable condition with after care instructions and follow up appointment. Note Entresto titrated from 24/26mg BID to 49/51mg BID. Patient will follow up in two weeks.
[2019-03-04 12:41] LABS: Potassium 3.7 mmol/L (3.5-5.1)
== END | disposition home or self-care (01) ==
LOC: CHF HDHVI 10:03
PROVIDERS: ATTEND Internal Medicine Cardiovascular Disease
DX: I11.0 Hypertensive heart disease with heart failure (principal); I50.9 Heart failure, unspecified; E87.6 Hypokalemia; R94.4 Abnormal results of kidney function studies; I48.91 Unspecified atrial fibrillation
CPT/HCPCS: 36415; 82565; 83880; 84132; 84520; G0463

== ENCOUNTER → 2019-03-18 | Outpatient (CLI) | payer MEDICARE, MEDICAID ==
[~2019-03-18] MED LIST changes: +CYANOCOBALAMIN (B-12) 1000 MCG/1 ML VIAL IM ONE; +CYANOCOBALAMIN (B-12) 1000 MCG/1 ML VIAL ONE
[2019-03-18 10:00] VITALS: BP 119/80
[2019-03-18 11:02] VITALS: BP 133/87
[2019-03-18 15:47] LABS: Basophils # (auto) 0.1 uL; Basophils % (auto) 1.3 % (0.0-2.0); Eosinophils # (auto) 0.2 uL; Eosinophils % (auto) 3.7 % (0.0-7.0); Hematocrit 49.7 % (41.0-53.0); Hemoglobin 16.5 g/dL (13.5-17.5); Lymphocytes # (auto) 1.1 uL; Lymphocytes % (auto) 21.1 % (10.0-50.0); Mean Corpuscular Hemoglobin 32.5 pg (28.0-32.0); Mean Corpuscular Hgb Conc. 33.2 g/dL (32.0-36.0); Mean Corpuscular Volume 97.7 fL (80.0-100.0); Monocytes # (auto) 0.4 uL; Monocytes % (auto) 7.9 % (0.0-12.0); Neutrophils # (auto) 3.4 uL; Nucleated Red Blood Cells % 0.1 %; Platelet Count (auto) 166 10^3/uL (140-450); Red Blood Cells 5.08 10^6/uL (4.5-5.90); Red Cell Distribution Width 15.8 % (11.8-14.3); White Blood Cell 5.1 10^3/uL (4.4-10.8)
[2019-03-18 16:07] LABS: BUN/Creatinine Ratio 14.5; Calcium 8.1 mg/dL (8.5-10.1); Magnesium 2.4 mg/dL (1.6-2.6); Potassium 3.5 mmol/L (3.5-5.1)
== END | disposition home or self-care (01) ==
LOC: CHF HDHVI 09:59
PROVIDERS: ATTEND Internal Medicine Cardiovascular Disease
DX: I11.0 Hypertensive heart disease with heart failure (principal); I50.9 Heart failure, unspecified; D64.9 Anemia, unspecified; K90.9 Intestinal malabsorption, unspecified; E83.40 Disorders of magnesium metabolism, unspecified; I25.10 Atherosclerotic heart disease of native coronary artery without angina pectoris; E03.9 Hypothyroidism, unspecified
CPT/HCPCS: 36415; 80048; 82306; 83735; 83880; 85025; 93701; G0463; J3420

== ENCOUNTER → 2019-04-08 | Outpatient (CLI) | payer MEDICARE, MEDICAID ==
[2019-04-08 10:28] VITALS: BP 146/86
--- NOTE | 2019-04-08 10:28 | NUR ---
CHF CLINIC Discharge Instructions See e-MAR for any mediations given with this visit. Patient education given on disease process. Patient verbalized understanding. Previous labs reviewed. Patient discharged in stable condition with after care instructions and follow up appointment. NOTE B12 IM L DELTOID ADMIN BY CINDY BOBO
== END | disposition home or self-care (01) ==
LOC: CHF HDHVI 10:23
PROVIDERS: ATTEND Internal Medicine Cardiovascular Disease
DX: I11.0 Hypertensive heart disease with heart failure (principal); I50.22 Chronic systolic (congestive) heart failure; I48.91 Unspecified atrial fibrillation; R53.83 Other fatigue; I25.10 Atherosclerotic heart disease of native coronary artery without angina pectoris; I25.2 Old myocardial infarction; E11.9 Type 2 diabetes mellitus without complications; D51.9 Vitamin B12 deficiency anemia, unspecified; E03.9 Hypothyroidism, unspecified; Z79.899 Other long term (current) drug therapy; Z87.891 Personal history of nicotine dependence
CPT/HCPCS: 36415; 82607; 83036; 96372; G0463; J3420

== ENCOUNTER → 2019-04-21 | Outpatient (CLI) | payer MEDICARE, MEDICAID ==
[~2019-04-21] MED LIST changes: +IOHEXOL 350 MG/ML 100ML IJ ONE
[2019-04-21 10:59] VITALS: BP 126/81
--- NOTE | 2019-04-21 10:59 | NUR ---
CHF PT ARRIVED TO THE CHF CLINIC FOR TX AND F/U OF CHF AND A CT OF THE ABD/PELVIS WITH IV CONTRAST. PT STABLE A/O X 4 0 DISTRESS
--- NOTE | 2019-04-21 11:15 | NUR ---
IV insertion IV access obtained, via clean sterile technique by inserting 22 gauge catheter at after attempt(s). IV secured properly. No trauma to site. Patient tolerated procedure well.
[2019-04-21 12:27] LABS: Potassium 3.7 mmol/L (3.5-5.1)
[2019-04-21 12:36] LABS: BUN/Creatinine Ratio 17.5; Calcium 8.1 mg/dL (8.5-10.1)
--- NOTE | 2019-04-21 12:50 | NUR ---
IV removal IV DC'd with sterile technique, catheter fully intact. Pressure dressing applied to site. Patient tolerated procedure well. Discharged with aftercare instructions per MD. NOTE: D/C BY RAUL BOBO
[2019-04-21 12:56] VITALS: BP 148/80
--- NOTE | 2019-04-21 12:56 | NUR ---
Discharge Instructions See e-MAR for any mediations given with this visit. Patient education given on disease process. Patient verbalized understanding. Previous labs reviewed. Patient discharged in stable condition with after care instructions and follow up appointment. MEDICATION VITAMIN B12 1000 MCG IM X 1 LEFT DELTOID LOT #[id number] EXP 12/15 Addendum: 04/21/19 at 1415 by JEAN BOLAND RN OR CARDIODYNAMICS COMPLETE BY RAUL BOBO. REVIEWED WITH PATIENT PT STATUS SIMILAR TO LAST CARDIODYNAMICS DOING WELL FEELS GOOD
[2019-04-21 15:52] LABS: Basophils # (auto) 0 uL; Basophils % (auto) 0.6 % (0.0-2.0); Eosinophils # (auto) 0.1 uL; Eosinophils % (auto) 2.2 % (0.0-7.0); Hematocrit 45.7 % (41.0-53.0); Hemoglobin 15.9 g/dL (13.5-17.5); Lymphocytes # (auto) 1.2 uL; Lymphocytes % (auto) 23.5 % (10.0-50.0); Mean Corpuscular Hemoglobin 33.2 pg (28.0-32.0); Mean Corpuscular Hgb Conc. 34.9 g/dL (32.0-36.0); Mean Corpuscular Volume 95.3 fL (80.0-100.0); Monocytes # (auto) 0.5 uL; Monocytes % (auto) 9.7 % (0.0-12.0); Neutrophils # (auto) 3.3 uL; Nucleated Red Blood Cells % 0.1 %; Platelet Count (auto) 167 10^3/uL (140-450); Red Cell Distribution Width 15.5 % (11.8-14.3); White Blood Cell 5.1 10^3/uL (4.4-10.8)
== END | disposition home or self-care (01) ==
LOC: Rad HDHVI 10:58
PROVIDERS: ATTEND Internal Medicine Cardiovascular Disease
DX: I11.0 Hypertensive heart disease with heart failure (principal); I50.22 Chronic systolic (congestive) heart failure; I25.10 Atherosclerotic heart disease of native coronary artery without angina pectoris; I48.91 Unspecified atrial fibrillation; I25.2 Old myocardial infarction; R53.83 Other fatigue; K80.20 Calculus of gallbladder without cholecystitis without obstruction; D64.9 Anemia, unspecified; E03.9 Hypothyroidism, unspecified; E11.9 Type 2 diabetes mellitus without complications; Z79.899 Other long term (current) drug therapy; Z87.891 Personal history of nicotine dependence
CPT/HCPCS: 36415; 74177; 80048; 83735; 83880; 85025; 93701; 96372; G0463; J3420; Q9967

== ENCOUNTER → 2019-05-05 | Outpatient (CLI) | payer MEDICARE, MEDICAID ==
[~2019-05-05] MED LIST changes: -CYANOCOBALAMIN (B-12) 1000 MCG/1 ML VIAL IM ONE; -CYANOCOBALAMIN (B-12) 1000 MCG/1 ML VIAL ONE; +DIGO0.12 PO; -DIGO0.1262 PO; -IOHEXOL 350 MG/ML 100ML IJ ONE
== END | disposition home or self-care (01) ==
LOC: Rad HDHVI 10:54
PROVIDERS: ATTEND Internal Medicine Cardiovascular Disease
DX: I73.9 Peripheral vascular disease, unspecified (principal)
CPT/HCPCS: 93925; 93926

== ENCOUNTER → 2019-05-12 | Outpatient (CLI) | payer MEDICARE, MEDICAID ==
[2019-05-12 16:19] LABS: Hepatitis B Surface Antibody Positive
[2019-05-12 16:57] LABS: Hepatitis A Total Antibody Positive
[2019-05-12 20:29] LABS: Hepatitis B Surface Antigen Negative (Negative)
[2019-05-12 20:30] LABS: Hepatitis C Antibody Negative (Negative)
[2019-05-13 09:18] LABS: Hepatitis B Core Total AB Positive
== END | disposition home or self-care (01) ==
LOC: LAB 11:53
PROVIDERS: ATTEND Internal Medicine Cardiovascular Disease
DX: M32.0 Drug-induced systemic lupus erythematosus (principal); R70.0 Elevated erythrocyte sedimentation rate; Z20.5 Contact with and (suspected) exposure to viral hepatitis
CPT/HCPCS: 36415; 86038; 86225; 86235; 86376; 86704; 86706; 86708; 86803; 87340

== ENCOUNTER → 2019-06-03 | Outpatient (CLI) | payer MEDICARE, MEDICAID ==
[~2019-06-03] MED LIST changes: +CYANOCOBALAMIN (B-12) 1000 MCG/1 ML VIAL IM ONE; +CYANOCOBALAMIN (B-12) 1000 MCG/1 ML VIAL ONE
[2019-06-03 09:15] VITALS: BP 142/89
--- NOTE | 2019-06-03 09:15 | NUR ---
CHF CLINIC Discharge Instructions See e-MAR for any mediations given with this visit. Patient education given on disease process. Patient verbalized understanding. Previous labs reviewed. Patient discharged in stable condition with after care instructions and follow up appointment. NOTE PT IS LITHUANIAN SPEAKING, CINDY BOBO TRANSLATING. B12 IM R DELTOID ADMIN BY CINDY BOBO CARDIODYNAMICS REVIEWED WITH PT BY DONALD KELLY AND CINDY BOBO.
[2019-06-03 12:12] LABS: Potassium 3.5 mmol/L (3.5-5.1)
[2019-06-03 12:18] LABS: BUN/Creatinine Ratio 15.9; Calcium 8.6 mg/dL (8.5-10.1); Magnesium 2.1 mg/dL (1.6-2.6)
== END | disposition home or self-care (01) ==
LOC: CHF HDHVI 08:56
PROVIDERS: ATTEND Internal Medicine Cardiovascular Disease
DX: I11.0 Hypertensive heart disease with heart failure (principal); I50.22 Chronic systolic (congestive) heart failure; I25.10 Atherosclerotic heart disease of native coronary artery without angina pectoris; I25.2 Old myocardial infarction; I48.91 Unspecified atrial fibrillation; E03.9 Hypothyroidism, unspecified; Z79.899 Other long term (current) drug therapy; Z87.891 Personal history of nicotine dependence; E11.9 Type 2 diabetes mellitus without complications
CPT/HCPCS: 36415; 80048; 83735; 83880; 93701; 96372; G0463; J3420

== ENCOUNTER → 2019-07-08 | Outpatient (CLI) | payer MEDICARE, MEDICAID ==
[2019-07-08 09:21] VITALS: BP 128/87
[2019-07-08 10:04] VITALS: BP 128/87
--- NOTE | 2019-07-08 10:04 | NUR ---
Discharge Instructions See e-MAR for any mediations given with this visit. Patient education given on disease process. Patient verbalized understanding. Previous labs reviewed. Patient discharged in stable condition with after care instructions and follow up appointment. MEDICATIONS VITAMIN B12 IM 1000 MCG IM RIGHT DELTOID LOT [id number] EXP 12/15 CARDIODYNAMICS DONE BY ANNABELLE BOBO AND REVIEWED BY RN PT WILL RETURN IN 2 WEEKS FOR REPEAT CARDIODYNAMICS RESULTS POSSIBLY SKEWED FROM RECENT COLD
[2019-07-08 11:48] LABS: Potassium 3.4 mmol/L (3.5-5.1)
[2019-07-08 12:03] LABS: Albumin 3.4 g/dL (3.4-5.0); BUN/Creatinine Ratio 14.4; Bilirubin, Total 1.2 mg/dL (0.2-1.0); Calcium 8.5 mg/dL (8.5-10.1); Magnesium 2.1 mg/dL (1.6-2.6); Total Protein 6.5 g/dL (6.4-8.2)
== END | disposition home or self-care (01) ==
LOC: CHF HDHVI 09:25
PROVIDERS: ATTEND Internal Medicine Cardiovascular Disease
DX: I27.21 Secondary pulmonary arterial hypertension (principal); I11.0 Hypertensive heart disease with heart failure; I50.23 Acute on chronic systolic (congestive) heart failure; R53.83 Other fatigue; I25.10 Atherosclerotic heart disease of native coronary artery without angina pectoris; I48.91 Unspecified atrial fibrillation; I25.2 Old myocardial infarction; E03.9 Hypothyroidism, unspecified; E11.9 Type 2 diabetes mellitus without complications; Z87.891 Personal history of nicotine dependence; Z79.899 Other long term (current) drug therapy
CPT/HCPCS: 36415; 80053; 83735; 83880; 93701; 96372; G0463; J3420

== ENCOUNTER → 2019-07-22 | Outpatient (CLI) | payer MEDICARE, MEDICAID ==
[~2019-07-22] MED LIST changes: -CYANOCOBALAMIN (B-12) 1000 MCG/1 ML VIAL IM ONE; -CYANOCOBALAMIN (B-12) 1000 MCG/1 ML VIAL ONE
--- NOTE | 2019-07-22 09:45 | NUR ---
CHF PT ARRIVED TO THE CHF CLINIC FOR A ONE WEEK CHECK ON HIS CARDIODYNAMICS DUE TO CARDIODYNAMICS RESULTS BEING SKEWED LAST WEEK. A/O X4 VSS
[2019-07-22 10:15] VITALS: BP 142/88
--- NOTE | 2019-07-22 10:15 | NUR ---
Discharge Instructions See e-MAR for any mediations given with this visit. Patient education given on disease process. Patient verbalized understanding. Previous labs reviewed. Patient discharged in stable condition with after care instructions and follow up appointment ON July WITH JAQUELIN RUANO. SAMPLES OF ENTRESTO 49MG/51 SAMPLES WERE GIVEN. NOTE CARDIODYNAMICS DONE BY KATHRYN KELLY
== END | disposition home or self-care (01) ==
LOC: CHF HDHVI 10:00
PROVIDERS: ATTEND Internal Medicine Cardiovascular Disease
DX: I50.9 Heart failure, unspecified (principal); I48.91 Unspecified atrial fibrillation; I42.9 Cardiomyopathy, unspecified
CPT/HCPCS: 93701; G0463

== ENCOUNTER → 2019-08-05 | Outpatient (CLI) | payer MEDICARE, MEDICAID ==
--- NOTE | 2019-08-05 09:47 | NUR ---
CHF PT ARRIVED TO THE CHF CLINIC FOR MONTHLY F/U AND TREATMENT. A/O X4 VSS
[2019-08-05 10:22] VITALS: BP 139/87
--- NOTE | 2019-08-05 10:22 | NUR ---
Discharge Instructions See e-MAR for any mediations given with this visit. Patient education given on disease process. Patient verbalized understanding. Previous labs reviewed. Patient discharged in stable condition with after care instructions and follow up appointment. NOTE 6MWT DONE BY ANNABELLE BOBO REVIEWED BY KATHRYN KELLY 300 METERS COMPLETED 30 METERS MORE THAN LAST 6MWT
[2019-08-05 11:55] LABS: Basophils # (auto) 0.1 10 ^3/uL (0-0.2); Basophils % (auto) 1.7 % (0.0-2.0); Eosinophils # (auto) 0.3 10 ^3/uL (0-0.8); Eosinophils % (auto) 4.3 % (0.0-7.0); Hematocrit 47.1 % (41.0-53.0); Hemoglobin 16.2 g/dL (13.5-17.5); Lymphocytes # (auto) 1.7 10 ^3/uL (0.4-5.4); Lymphocytes % (auto) 26.9 % (10.0-50.0); Mean Corpuscular Hemoglobin 33.3 pg (28.0-32.0); Mean Corpuscular Hgb Conc. 34.4 g/dL (32.0-36.0); Mean Corpuscular Volume 96.8 fL (80.0-100.0); Monocytes # (auto) 0.6 10 ^3/uL (0-1.3); Monocytes % (auto) 9.2 % (0.0-12.0); Neutrophils # (auto) 3.7 10 ^3/uL (1.6-8.6); Neutrophils % (auto) 57.9 % (37.0-80.0); Nucleated Red Blood Cells % 0.1 %; Platelet Count (auto) 186 10^3/uL (140-450); Red Blood Cells 4.86 10^6/uL (4.5-5.90); Red Cell Distribution Width 14.5 % (11.8-14.3); White Blood Cell 6.4 10^3/uL (4.4-10.8)
[2019-08-05 12:06] LABS: Potassium 3.3 mmol/L (3.5-5.1)
[2019-08-05 12:15] LABS: BUN/Creatinine Ratio 12.8; Calcium 8.6 mg/dL (8.5-10.1); Magnesium 2.4 mg/dL (1.6-2.6)
== END | disposition home or self-care (01) ==
LOC: CHF HDHVI 09:48
PROVIDERS: ATTEND Internal Medicine Cardiovascular Disease
DX: I50.9 Heart failure, unspecified (principal)
CPT/HCPCS: 36415; 80048; 83735; 83880; 85025; 94618; G0463

== ENCOUNTER → 2019-08-14 | Outpatient (CLI) | payer MEDICARE, MEDICAID ==
[~2019-08-14] VITALS: Ht 154.9 cm; Wt 66.2 kg
[~2019-08-14] MED LIST changes: +ADENOSINE 56 MG in GIVE UN-DILUTED 0 ML IV ONE; +ADENOSINE 90 MG/30 ML INJ IV ONE
== END | disposition home or self-care (01) ==
LOC: Rad HDHVI 09:15
PROVIDERS: ATTEND Internal Medicine Cardiovascular Disease
DX: I48.21 Permanent atrial fibrillation (principal); I11.0 Hypertensive heart disease with heart failure; I50.43 Acute on chronic combined systolic (congestive) and diastolic (congestive) heart failure; I25.10 Atherosclerotic heart disease of native coronary artery without angina pectoris; I42.0 Dilated cardiomyopathy; I25.2 Old myocardial infarction; I27.21 Secondary pulmonary arterial hypertension; I42.8 Other cardiomyopathies; R09.89 Other specified symptoms and signs involving the circulatory and respiratory systems; E03.9 Hypothyroidism, unspecified; E11.9 Type 2 diabetes mellitus without complications; Z79.899 Other long term (current) drug therapy; Z87.891 Personal history of nicotine dependence; Z95.2 Presence of prosthetic heart valve
CPT/HCPCS: 78452; 93005; 93306; 96374; 96375; A9500; J0153

== ENCOUNTER 2019-10-22 09:00 | Inpatient (IN) | payer MEDICARE, MEDICAID ==
[2019-10-17 13:13] LABS: Urine Bacteria NONE SEEN /hpf (None Seen); Urine Blood Negative /uL (Negative); Urine Mucus FEW (None Seen); Urine Specific Gravity 1.023 (1.001-1.035); Urine WBC <1 /hpf (0 - 3)
[2019-10-17 13:34] LABS: Basophils # (auto) 0.1 10 ^3/uL (0-0.2); Basophils % (auto) 1.2 % (0.0-2.0); Eosinophils # (auto) 0.3 10 ^3/uL (0-0.8); Eosinophils % (auto) 4.4 % (0.0-7.0); Hemoglobin 15.6 g/dL (13.5-17.5); INR 1.25 (0.9-1.15); Lymphocytes % (auto) 31.7 % (10.0-50.0); Mean Corpuscular Hemoglobin 31.6 pg (28.0-32.0); Mean Corpuscular Hgb Conc. 33.2 g/dL (32.0-36.0); Monocytes # (auto) 0.5 10 ^3/uL (0-1.3); Monocytes % (auto) 8.5 % (0.0-12.0); Neutrophils # (auto) 3.4 10 ^3/uL (1.6-8.6); Neutrophils % (auto) 54.2 % (37.0-80.0); Nucleated Red Blood Cells % 0.1 %; Partial Thromboplastin Time 38.2 sec (23.64-32.05); Platelet Count (auto) 207 10^3/uL (140-450); Red Blood Cells 4.95 10^6/uL (4.5-5.90); Red Cell Distribution Width 14.7 % (11.8-14.3); White Blood Cell 6.3 10^3/uL (4.4-10.8)
[2019-10-17 13:35] LABS: Albumin 3.4 g/dL (3.4-5.0); Calcium 8.2 mg/dL (8.5-10.1); Potassium 4.3 mmol/L (3.5-5.1)
[2019-10-17 13:38] LABS: BUN/Creatinine Ratio 15.8; Bilirubin, Total 1.6 mg/dL (0.2-1.0); Total Protein 7.1 g/dL (6.4-8.2)
[~2019-10-22] VITALS: Ht 152.4 cm; Wt 62.3 kg
[~2019-10-22 09:00] MED LIST changes: -ADENOSINE 56 MG in GIVE UN-DILUTED 0 ML IV ONE; -ADENOSINE 90 MG/30 ML INJ IV ONE; -AMIO400T3 PO
[2019-10-22] MEDS ORDERED: ceFAZolin 1GM/50ML 50 ML IV ONE (09:01)
[2019-10-22] MEDS ORDERED: POVIDONE IODINE 10 % TOPICAL OINT 30GM TOP ONE (09:58)
[2019-10-22] MEDS ORDERED: LIDOCAINE 1% (LOCAL ANESTH.) PF 5ml SDV ONE (10:10)
[2019-10-22] MEDS ORDERED: SUCCINYLCHOLINE CHLORIDE 20 MG/ML 10ML VIAL IV ONE (10:11)
[2019-10-22] MEDS ORDERED: MIDAZOLAM HCL 1MG/1ML-2 ML VIAL ONE (10:12)
[2019-10-22] MEDS ORDERED: ROCURONIUM 10MG/ML 10ML VIAL IV ONE (10:13)
[2019-10-22] MEDS ORDERED: ETOMIDATE (2MG/ML) 20ML VIAL IV ONE (10:13)
[2019-10-22] MEDS ORDERED: fentaNYL CITRATE 100 MCG/2 ML VL ONE (10:29)
[2019-10-22] MEDS ORDERED: NALOXONE HCL 0.4 MG/ML VIAL IV PRN (10:45)
[2019-10-22] MEDS ORDERED: ONDANSETRON HCL 4 MG/2 ML VIAL IV PRN ×2 (10:45→14:00)
[2019-10-22] MEDS ORDERED: HYDROmorphone HCL 2 MG/ML VL IV PRN (10:45)
[2019-10-22] MEDS ORDERED: GLYCOPYRROLATE 0.2 MG/ML 1ML VIAL ONE (10:50)
[2019-10-22] MEDS ORDERED: NEOSTIGMINE 1 MG/ML INJ (10mg/10ML VIAL) ONE (10:50)
[2019-10-22] MEDS: HYDROmorphone HCL 2 MG/ML VL IV PRN ×3 (11:14→11:45)
[2019-10-22] MEDS ORDERED: hydrALAZINE HCL 20 MG/ML VL ONE (13:11)
[2019-10-22] MEDS: hydrALAZINE HCL 20 MG/ML VL IV ONE ×2 (13:14→13:15)
[2019-10-22] MEDS ORDERED: NITROGLYCERIN 0.4 MG SL TAB SL PRN (13:30)
[2019-10-22] MEDS ORDERED: MORPHINE SULF INJ 2 MG/ML SYRINGE 1ML IV PRN (13:30)
[2019-10-22 15:13] VITALS: BP 156/82
--- NOTE | 2019-10-22 15:15 | NUR ---
Telemetry admit from [facility] SHANCATALINA admitted to Telemetry unit after verbal report received from LETICIA Jeong, recovery nurse. Patient oriented to Edith Galarza, primary RN, unit, room, bed, and unit policies regarding patient care and visiting hours. Patient now on continuous telemetry monitoring, tele box # 64 and telemetry reading on arrival to unit is A-Fib with paced beats @ 68 bpm. IV to right hand, 20 gauge, patent and saline locked. Medial abdominal incisions X3 with dressing clean, dry and intact, abdominal binder in place. Patient weighed by bedscale and encouraged to call if they need something. All questions and concerns addressed, patient verbalized understanding. Bed locked, in lowest position, call light within reach, will continue to monitor Q 1 hour and PRN.
[2019-10-22 16:28] VITALS: BP 187/90
[2019-10-22] MEDS: LABETALOL HCL 5 MG/ML 4ML SYRINGE IV PRN ×2 (17:08→21:35)
[2019-10-22] MEDS: MORPHINE SULF INJ 2 MG/ML SYRINGE 1ML IV PRN ×2 (17:09→21:36)
--- NOTE | 2019-10-22 19:37 | NUR ---
Care endorsed to LETICIA Espino, night nurse.
[2019-10-22] MEDS: HYDROcodone-ACET 5/325MG TAB PO PRN (20:25)
[2019-10-22 22:00] VITALS: BP 167/102
--- NOTE | 2019-10-23 00:15 | NUR ---
ROOM TRANSFER PATIENT TRANSFERRED TO ROOM 285A WITH ALL PERSONAL BELONGINGS. PATIENT NOW WITH ARROW POINT ATTACHER AT BEDSIDE. PATIENT WAS CONTINUOUSLY GETTING UP FROM BED AND SETTING OFF BED ALARM. PATIENT REORIENTED MULTIPLE TIMES AND ENCOURAGED TO USE CALL LIGHT BEFORE GETTING UP FROM BED. PATIENT IS HAVING PERIODS OF DISORIENTATION. HEART RATE INCREASES EACH TIME PATIENT GETS UP FROM BED. PATIENT MOVED TO ROOM WITH SITTER FOR PATIENT SAFETY.
[2019-10-23] MEDS: MORPHINE SULF INJ 2 MG/ML SYRINGE 1ML IV PRN (01:37)
[2019-10-23] MEDS: LABETALOL HCL 5 MG/ML 4ML SYRINGE IV PRN ×3 (01:38→16:09)
--- NOTE | 2019-10-23 03:07 | NUR ---
HOSPITALIST PAGED PATIENT WITH PERSISTENT ABDOMINAL PAIN RATED 10/10. INCREASED HR AND BLOOD PRESSURE. PATIENT RUNNING A-FIB WITH HR 120-150. BP 177/102 RIGHT SIDE, 192/103 LEFT SIDE. ABDOMEN SOFT TO PALPATION AND TENDER TO TOUCH. PATIENT WITH ABDOMINAL BINDER IN PLACE, DRESSINGS REMAIN C/D/I.
[2019-10-23] MEDS ORDERED: dilTIAZem 25 MG/5 ML VIAL IV ONE (03:15)
[2019-10-23] MEDS ORDERED: HYDROmorphone HCL 2 MG/ML VL IV ONE (03:15)
--- NOTE | 2019-10-23 03:15 | NUR ---
HOSPITALIST RETURNS CALL HOSPITALIST QUAN RETURNS CALL, UPDATED ON PATIENT'S CURRENT VITAL SIGNS HR 120-150'S (AFIB), BP 177/102 AND PERSISTENT PAIN RATED 10/10 IN THE ABDOMEN, S/P LAP IRMA. NEW ORDERS RECEIVED FOR 0.5MG DILAUDID IV X1 DOSE AND 10MG CARDIZEM IVP X1 DOSE. ALL ORDERS READ BACK AND VERIFIED.
[2019-10-23 05:42] LABS: Basophils # (auto) 0 10 ^3/uL (0-0.2); Basophils % (auto) 0.3 % (0.0-2.0); Eosinophils # (auto) 0 10 ^3/uL (0-0.8); Hematocrit 48.2 % (41.0-53.0); Hemoglobin 16.5 g/dL (13.5-17.5); Lymphocytes # (auto) 0.7 10 ^3/uL (0.4-5.4); Lymphocytes % (auto) 5.5 % (10.0-50.0); Mean Corpuscular Hemoglobin 32.2 pg (28.0-32.0); Mean Corpuscular Hgb Conc. 34.2 g/dL (32.0-36.0); Monocytes # (auto) 1.1 10 ^3/uL (0-1.3); Monocytes % (auto) 8.4 % (0.0-12.0); Neutrophils # (auto) 11.5 10 ^3/uL (1.6-8.6); Neutrophils % (auto) 85.8 % (37.0-80.0); Nucleated Red Blood Cells % 0.2 %; Platelet Count (auto) 170 10^3/uL (140-450); Red Blood Cells 5.12 10^6/uL (4.5-5.90); Red Cell Distribution Width 14.5 % (11.8-14.3); White Blood Cell 13.4 10^3/uL (4.4-10.8)
[2019-10-23 05:46] VITALS: BP 167/97
[2019-10-23 05:58] LABS: Potassium 3.7 mmol/L (3.5-5.1)
[2019-10-23] MEDS: HYDROcodone-ACET 5/325MG TAB PO PRN ×3 (05:58→22:14)
[2019-10-23 06:02] LABS: BUN/Creatinine Ratio 15.9
--- NOTE | 2019-10-23 08:00 | NUR ---
Opening Shift Note Assumed care of patient, awake, alert and oriented X4. Paient is primarily Cape Verdean speaking, translation provided by student asphalt plant operator Darío. No S/S of distress/SOB, complains of abdominal pain, 02/04, informed prescribed pain medication not due at this time, verbalized understanding. Tele#64, Atrial Fibrillation @ 105 bpm with paced beats. IV to right hand, 20 gauge, patent and saline locked. Medial abdominal incisions X3, all dressings clean, dry and intact, abdominal binder in place. Bilateral SCD's in place. Instructed on POC and to call for assist PRN, verbalized understanding. Bed locked, in lowest position, call light within reach, sitter remains at bedside for patient safety, will continue to monitor for changes Q1hr and PRN.
[2019-10-23 09:00] VITALS: BP 165/97
[2019-10-23] MEDS ORDERED: POTASSIUM CHL 20 Meq TABLET PO ONE (11:00)
[2019-10-23] MEDS ORDERED: LORazepam 2MG/ML-1ML VIAL IV PRN (11:00)
[2019-10-23] MEDS ORDERED: FUROSEMIDE 20 MG/2 ML VIAL IV ONE (11:00)
[2019-10-23] MEDS ORDERED: LISINOPRIL 10 MG TAB PO ONE (11:00)
[2019-10-23] MEDS ORDERED: PANTOPRAZOLE 40 MG TAB PO ONE (11:00)
[2019-10-23] MEDS: ATENOLOL 50 MG TAB PO SCH (11:02)
[2019-10-23] MEDS: DIGOXIN 0.125 MG TAB PO SCH (11:03)
--- NOTE | 2019-10-23 11:05 | NUR ---
ROUNDS Dr Olmedo at bedside for rounds, new orders received and followed through. Patient updated on plan of care, verbalized understanding. Sitter remains at bedside for patient safety.
[2019-10-23 12:41] VITALS: BP 131/88
--- NOTE | 2019-10-23 15:50 | NUR ---
Attempted PT eval. Pt refused stating he has already been up walking today. Will attempt tomorrow.
[2019-10-23 17:00] VITALS: BP 155/79
--- NOTE | 2019-10-23 19:44 | NUR ---
Care endorsed to LETICIA Paiz, night nurse.
--- NOTE | 2019-10-23 19:45 | NUR ---
Opening Shift Note Assumed care of patient, awake and alert with periods of confusion. snack bar attendant at bedside for patient safety. No S/S of distress/SOB or pain. Instructed on POC and to call for assist PRN, will continue to monitor for changes Q1hr and PRN.
[2019-10-23 22:00] VITALS: BP 153/76
[2019-10-23] MEDS: TAMSULOSIN HYDROCHLORIDE 0.4 MG CAP PO SCH (22:14)
--- NOTE | 2019-10-24 03:30 | NUR ---
technical project lead called regarding fast heart rate. Patient using toilet at this time. Patient monitored, able to walk back to bed with minimal to stand-by assist. Vital signs checked. Heart rate checked via palpation in a full minute due to patient's irregular heartbeat. Heart rate at 97. Patient has no complains, no signs nor symptoms of shortness of breath. All needs attended to. technical project lead made aware that patient was checked. Care continued.
[2019-10-24] MEDS: HYDROcodone-ACET 5/325MG TAB PO PRN ×3 (04:01→22:47)
[2019-10-24 04:53] VITALS: BP 130/74
[2019-10-24 05:07] LABS: Basophils # (auto) 0.1 10 ^3/uL (0-0.2); Basophils % (auto) 0.3 % (0.0-2.0); Eosinophils # (auto) 0 10 ^3/uL (0-0.8); Hematocrit 48.8 % (41.0-53.0); Hemoglobin 16.7 g/dL (13.5-17.5); Lymphocytes % (auto) 5.6 % (10.0-50.0); Mean Corpuscular Hemoglobin 32.2 pg (28.0-32.0); Mean Corpuscular Hgb Conc. 34.1 g/dL (32.0-36.0); Mean Corpuscular Volume 94.3 fL (80.0-100.0); Monocytes # (auto) 1.3 10 ^3/uL (0-1.3); Monocytes % (auto) 7.3 % (0.0-12.0); Neutrophils # (auto) 15.7 10 ^3/uL (1.6-8.6); Neutrophils % (auto) 86.8 % (37.0-80.0); Platelet Count (auto) 160 10^3/uL (140-450); Red Blood Cells 5.17 10^6/uL (4.5-5.90); Red Cell Distribution Width 14.5 % (11.8-14.3); White Blood Cell 18.1 10^3/uL (4.4-10.8)
[2019-10-24 05:26] LABS: Albumin 3.2 g/dL (3.4-5.0); Calcium 8.8 mg/dL (8.5-10.1); Potassium 3.7 mmol/L (3.5-5.1)
[2019-10-24 05:30] LABS: BUN/Creatinine Ratio 21.6; Bilirubin, Total 8.3 mg/dL (0.2-1.0)
[2019-10-24 09:00] VITALS: BP 135/96
[2019-10-24] MEDS ORDERED: LISINOPRIL 10 MG TAB PO SCH (10:00)
[2019-10-24] MEDS ORDERED: FUROSEMIDE 20 MG/2 ML VIAL IV SCH (10:00)
[2019-10-24] MEDS ORDERED: POTASSIUM CHL 20 Meq TABLET PO SCH (10:00)
[2019-10-24] MEDS: TAMSULOSIN HYDROCHLORIDE 0.4 MG CAP PO SCH ×2 (10:52→22:47)
[2019-10-24] MEDS: PANTOPRAZOLE 40 MG TAB PO SCH (10:53)
[2019-10-24] MEDS: DIGOXIN 0.125 MG TAB PO SCH (10:53)
[2019-10-24] MEDS: ATENOLOL 50 MG TAB PO SCH (10:54)
[2019-10-24] MEDS ORDERED: levoFLOXacin 500 MG TAB PO ONE (12:15)
[2019-10-24 13:00] VITALS: BP 131/83
--- NOTE | 2019-10-24 13:20 | NUR ---
Pt refused PT eval stating he has mild pain and is too tired. He states he is willing tomorrow. Will attempt again.
[2019-10-24 17:00] VITALS: BP 139/76
[2019-10-24] MEDS: RIVAROXABAN 15 MG TAB PO SCH (18:12)
[2019-10-24 22:00] VITALS: BP 122/74
[2019-10-25] MEDS: MORPHINE SULF INJ 2 MG/ML SYRINGE 1ML IV PRN (01:42)
[2019-10-25 05:09] LABS: Basophils # (auto) 0.1 10 ^3/uL (0-0.2); Basophils % (auto) 0.4 % (0.0-2.0); Eosinophils # (auto) 0 10 ^3/uL (0-0.8); Eosinophils % (auto) 0.3 % (0.0-7.0); Hematocrit 44.9 % (41.0-53.0); Hemoglobin 15.4 g/dL (13.5-17.5); Lymphocytes # (auto) 1.1 10 ^3/uL (0.4-5.4); Lymphocytes % (auto) 7.8 % (10.0-50.0); Mean Corpuscular Hemoglobin 32.6 pg (28.0-32.0); Mean Corpuscular Hgb Conc. 34.4 g/dL (32.0-36.0); Mean Corpuscular Volume 94.7 fL (80.0-100.0); Monocytes # (auto) 0.9 10 ^3/uL (0-1.3); Monocytes % (auto) 6.6 % (0.0-12.0); Neutrophils # (auto) 11.6 10 ^3/uL (1.6-8.6); Neutrophils % (auto) 84.9 % (37.0-80.0); Nucleated Red Blood Cells % 0.1 %; Platelet Count (auto) 156 10^3/uL (140-450); Red Blood Cells 4.74 10^6/uL (4.5-5.90); Red Cell Distribution Width 14.6 % (11.8-14.3); White Blood Cell 13.7 10^3/uL (4.4-10.8)
[2019-10-25 05:27] LABS: Calcium 8.6 mg/dL (8.5-10.1); Potassium 4.4 mmol/L (3.5-5.1)
[2019-10-25 05:30] VITALS: BP 103/46
[2019-10-25 07:15] LABS: Bilirubin, Direct 1.8 mg/dL (0-0.2); Bilirubin, Total 5.7 mg/dL (0.2-1.0)
[2019-10-25 09:09] VITALS: BP 108/50
[2019-10-25] MEDS: DIGOXIN 0.125 MG TAB PO SCH (09:35)
[2019-10-25] MEDS: levoFLOXacin 250 MG TAB PO SCH (09:35)
[2019-10-25] MEDS: TAMSULOSIN HYDROCHLORIDE 0.4 MG CAP PO SCH ×2 (09:35→21:26)
[2019-10-25] MEDS: PANTOPRAZOLE 40 MG TAB PO SCH (09:35)
[2019-10-25] MEDS: HYDROcodone-ACET 5/325MG TAB PO PRN ×3 (09:36→21:27)
[2019-10-25] MEDS: ATENOLOL 50 MG TAB PO SCH (09:36)
[2019-10-25 12:50] VITALS: BP 84/45
[2019-10-25 17:18] VITALS: BP 117/93
[2019-10-25] MEDS: RIVAROXABAN 15 MG TAB PO SCH (17:48)
--- NOTE | 2019-10-25 19:28 | NUR ---
Opening Shift Note Assumed care of patient after receiving report from LETICIA Gale. Patient awake and alert, in bed. No S/S of distress/SOB or pain. Call light within reach, bed in lowest position x2 side rails. Instructed on POC and to call for assist PRN, will continue to monitor for changes Q1hr and PRN.
[2019-10-25 22:00] VITALS: BP 122/74
[2019-10-26] MEDS: HYDROcodone-ACET 5/325MG TAB PO PRN (03:37)
[2019-10-26 05:00] VITALS: BP 115/75
[2019-10-26 07:03] LABS: Basophils # (auto) 0.1 10 ^3/uL (0-0.2); Basophils % (auto) 0.9 % (0.0-2.0); Eosinophils # (auto) 0.4 10 ^3/uL (0-0.8); Eosinophils % (auto) 4.8 % (0.0-7.0); Hematocrit 45.6 % (41.0-53.0); Hemoglobin 15.6 g/dL (13.5-17.5); Lymphocytes # (auto) 1.1 10 ^3/uL (0.4-5.4); Lymphocytes % (auto) 13.1 % (10.0-50.0); Mean Corpuscular Hemoglobin 32.6 pg (28.0-32.0); Mean Corpuscular Hgb Conc. 34.3 g/dL (32.0-36.0); Mean Corpuscular Volume 95.1 fL (80.0-100.0); Monocytes # (auto) 0.8 10 ^3/uL (0-1.3); Neutrophils # (auto) 6.3 10 ^3/uL (1.6-8.6); Neutrophils % (auto) 72.2 % (37.0-80.0); Nucleated Red Blood Cells % 0.1 %; Platelet Count (auto) 166 10^3/uL (140-450); Red Blood Cells 4.79 10^6/uL (4.5-5.90); Red Cell Distribution Width 13.9 % (11.8-14.3); White Blood Cell 8.8 10^3/uL (4.4-10.8)
[2019-10-26 07:24] LABS: BUN/Creatinine Ratio 37.4; Calcium 8.6 mg/dL (8.5-10.1); Potassium 4.2 mmol/L (3.5-5.1)
[2019-10-26 09:00] VITALS: BP 145/76
[2019-10-26] MEDS: PANTOPRAZOLE 40 MG TAB PO SCH (10:23)
[2019-10-26] MEDS: TAMSULOSIN HYDROCHLORIDE 0.4 MG CAP PO SCH (10:23)
[2019-10-26] MEDS: DIGOXIN 0.125 MG TAB PO SCH (10:24)
[2019-10-26] MEDS: ATENOLOL 50 MG TAB PO SCH (10:24)
[2019-10-26] MEDS: levoFLOXacin 250 MG TAB PO SCH (10:24)
[2019-10-26 14:25] VITALS: BP 124/70
--- NOTE | 2019-10-26 14:28 | NUR ---
Est energy needs 1558-186kcal (25-30 kcal/kg BW 62.3 kg) Est protein needs 37-50g (0.6-0.8g/kg BW 62.3kg r/t ARF/Elevated RFTs) will reassess prn. Addendum: 10/26/19 at [address] Amended: Links added.
--- NOTE | 2019-10-26 16:29 | NUR ---
Discharge Went over discharge paperwork with patient. Explained that he needs to call to make follow up appointments with Dr. Rice and Dr. Mccallum. Gave prescription to patient, stapled to his paperwork, and explained that it was a prescription for an antibiotic. Removed IV intact, no problems. Removed telemetry and sent to ICU per hospital protocol. Removed all ID bands. Patient getting ready. Will call daughter to come pick him up and will also go over paperwork with her. Patient will leave in private vehicle with family and all personal belongings from room.
--- NOTE | 2019-10-26 17:20 | NUR ---
PATIENT WAS PICKED UP This nurse took the patient in a wheelchair down to his daughter's car. Patient was picked up by his daughter, Alvin, in private vehicle. Explained that he needs to make appointments with Dr. Rice and Dr. Mccallum. Explained that the abdominal binder cannot get wet and must stay on until he sees Dr. Mccallum next week. Told her that his antibiotic prescription is with his paperwork in his patient bag. Patient left in private vehicle.
== END 2019-10-26 17:21 | disposition home or self-care (01) | DRG 417 ==
LOC: SUR 09:00 → TELE-WESTW 13:48
PROVIDERS: ADMIT Surgery; ATTEND Internal Medicine
PROC: 0FT44ZZ Resection of Gallbladder, Percutaneous Endoscopic Approach (ICD-10-PCS; principal; 2019-10-22 10:10)
DX: K80.12 Calculus of gallbladder with acute and chronic cholecystitis without obstruction (principal); N17.0 Acute kidney failure with tubular necrosis; I50.23 Acute on chronic systolic (congestive) heart failure; I13.0 Hypertensive heart and chronic kidney disease with heart failure and stage 1 through stage 4 chronic kidney disease, or unspecified chronic kidney disease; I42.0 Dilated cardiomyopathy; I48.92 Unspecified atrial flutter; I48.19 Other persistent atrial fibrillation; D68.69 Other thrombophilia; K74.60 Unspecified cirrhosis of liver; E66.9 Obesity, unspecified; N18.9 Chronic kidney disease, unspecified; Z95.810 Presence of automatic (implantable) cardiac defibrillator; Z90.49 Acquired absence of other specified parts of digestive tract; Z68.27 Body mass index [BMI] 27.0-27.9, adult; Z11.59 Encounter for screening for other viral diseases
CPT/HCPCS: 36415; 71045; 80048; 80053; 81001; 82247; 82248; 85025; 85610; 85730; 86850; 86900; 86901; 93005; 97163; 97530; G0378; J0330; J0690; J2250; J3490

== ENCOUNTER 2019-11-04 11:01 | Inpatient (IN) | payer MEDICARE, MEDICAID ==
[~2019-11-04] VITALS: Ht 165.1 cm; Wt 63.0 kg
[2019-11-04 11:51] LABS: Basophils # (auto) 0.1 10 ^3/uL (0-0.2); Basophils % (auto) 0.8 % (0.0-2.0); Eosinophils # (auto) 0.3 10 ^3/uL (0-0.8); Eosinophils % (auto) 2.4 % (0.0-7.0); Hematocrit 48.5 % (41.0-53.0); Hemoglobin 16.3 g/dL (13.5-17.5); Lymphocytes # (auto) 1.8 10 ^3/uL (0.4-5.4); Lymphocytes % (auto) 13.7 % (10.0-50.0); Mean Corpuscular Hemoglobin 32.1 pg (28.0-32.0); Mean Corpuscular Hgb Conc. 33.6 g/dL (32.0-36.0); Mean Corpuscular Volume 95.3 fL (80.0-100.0); Monocytes # (auto) 0.7 10 ^3/uL (0-1.3); Monocytes % (auto) 5.2 % (0.0-12.0); Neutrophils # (auto) 10.3 10 ^3/uL (1.6-8.6); Neutrophils % (auto) 77.9 % (37.0-80.0); Nucleated Red Blood Cells % 0.3 %; Platelet Count (auto) 327 10^3/uL (140-450); Red Blood Cells 5.08 10^6/uL (4.5-5.90); Red Cell Distribution Width 14.6 % (11.8-14.3); White Blood Cell 13.2 10^3/uL (4.4-10.8)
[2019-11-04 12:21] LABS: Albumin 2.8 g/dL (3.4-5.0); BUN/Creatinine Ratio 21.3; Bilirubin, Total 3.4 mg/dL (0.2-1.0); Calcium 8.2 mg/dL (8.5-10.1)
[2019-11-04] MEDS ORDERED: PIPERACILLIN-TAZOB 3.375GM 100 ML IV ONE (12:30)
[2019-11-04] MEDS ORDERED: SODIUM CHLORIDE 0.9% 1,000 ML IV ONE (12:30)
[2019-11-04] MEDS ORDERED: ONDANSETRON HCL 4 MG/2 ML VIAL IV ONE (12:45)
[2019-11-04] MEDS ORDERED: MORPHINE SULF INJ 2 MG/ML SYRINGE 1ML IV ONE (12:45)
[2019-11-04] MEDS ORDERED: NITROGLYCERIN 0.4 MG SL TAB SL PRN (13:45)
[2019-11-04] MEDS ORDERED: ACETAMINOPHEN 500 MG TAB PO PRN (13:45)
[2019-11-04] MEDS ORDERED: MORPHINE SULF INJ 2 MG/ML SYRINGE 1ML IV PRN (13:45)
[2019-11-04] MEDS: SODIUM CHLORIDE 0.9% 1,000 ML IV SCH ×2 (14:08→21:42)
[2019-11-04 14:37] LABS: Urine Bacteria NONE SEEN /hpf (None Seen); Urine Blood Negative /uL (Negative); Urine Specific Gravity 1.017 (1.001-1.035); Urine WBC 3 /hpf (0 - 3)
[2019-11-04] MEDS ORDERED: NOREPINEPHRINE 8 MG/250ML KIT 250 ML IV ONE (16:34)
[2019-11-04] MEDS: NOREPINEPHRINE 8 MG/250ML KIT 250 ML IV SCH (16:49)
[2019-11-04] MEDS: TAMSULOSIN HYDROCHLORIDE 0.4 MG CAP PO SCH (17:56)
[2019-11-04] MEDS: ONDANSETRON HCL 4 MG/2 ML VIAL IV PRN (17:58)
[2019-11-04] MEDS ORDERED: SACUBITRIL-VALSARTAN 24mg/26mg TAB PO SCH (22:00)
[2019-11-04] MEDS: PIPERACILLIN-TAZOB 2.25GM 50 ML IV SCH (23:46)
[2019-11-05] MEDS: HYDROcodone-ACET 5/325MG TAB PO PRN (02:49)
[2019-11-05] MEDS: SODIUM CHLORIDE 0.9% 1,000 ML IV SCH ×3 (05:42→23:02)
[2019-11-05] MEDS: PIPERACILLIN-TAZOB 2.25GM 50 ML IV SCH ×4 (06:01→23:37)
[2019-11-05 06:03] LABS: Basophils # (auto) 0.1 10 ^3/uL (0-0.2); Eosinophils # (auto) 0.2 10 ^3/uL (0-0.8); Eosinophils % (auto) 1.6 % (0.0-7.0); Hematocrit 42.5 % (41.0-53.0); Hemoglobin 14.4 g/dL (13.5-17.5); Lymphocytes # (auto) 1.6 10 ^3/uL (0.4-5.4); Lymphocytes % (auto) 11.6 % (10.0-50.0); Mean Corpuscular Hemoglobin 32.3 pg (28.0-32.0); Mean Corpuscular Hgb Conc. 33.9 g/dL (32.0-36.0); Mean Corpuscular Volume 95.3 fL (80.0-100.0); Monocytes # (auto) 1.1 10 ^3/uL (0-1.3); Monocytes % (auto) 7.9 % (0.0-12.0); Neutrophils # (auto) 10.5 10 ^3/uL (1.6-8.6); Neutrophils % (auto) 77.9 % (37.0-80.0); Platelet Count (auto) 302 10^3/uL (140-450); Red Blood Cells 4.46 10^6/uL (4.5-5.90); Red Cell Distribution Width 14.6 % (11.8-14.3); White Blood Cell 13.5 10^3/uL (4.4-10.8)
[2019-11-05 06:29] LABS: BUN/Creatinine Ratio 22.2; Calcium 7.5 mg/dL (8.5-10.1); Potassium 4.4 mmol/L (3.5-5.1)
[2019-11-05] MEDS ORDERED: cefTRIAXone 1GM/50ML D5W 50 ML IV SCH (09:00)
[2019-11-05] MEDS ORDERED: ATENOLOL 50 MG TAB PO SCH (10:00)
[2019-11-05] MEDS: LACTULOSE 20Gm/30ML SOLN PO SCH (10:29)
[2019-11-05] MEDS: POLYETHYLENE GLYCOL 17 GM PWDR PO SCH (10:29)
[2019-11-05] MEDS: ONDANSETRON HCL 4 MG/2 ML VIAL IV PRN (10:29)
[2019-11-05] MEDS: ENOXAPARIN SOD 30 MG/0.3 ML SYRINGE SC SCH (10:29)
[2019-11-05] MEDS: MORPHINE SULF INJ 2 MG/ML SYRINGE 1ML IV PRN (10:30)
[2019-11-05] MEDS: NOREPINEPHRINE 8 MG/250ML KIT 250 ML IV SCH (16:30)
[2019-11-05] MEDS: TAMSULOSIN HYDROCHLORIDE 0.4 MG CAP PO SCH (18:51)
[2019-11-06] MEDS: HYDROcodone-ACET 10/325MG TAB PO PRN ×3 (01:10→23:08)
[2019-11-06] MEDS: SODIUM CHLORIDE 0.9% 1,000 ML IV SCH (05:49)
[2019-11-06 06:03] LABS: BUN/Creatinine Ratio 20.2; Calcium 7.1 mg/dL (8.5-10.1); Potassium 3.4 mmol/L (3.5-5.1)
[2019-11-06] MEDS: PIPERACILLIN-TAZOB 2.25GM 50 ML IV SCH ×3 (06:24→18:32)
[2019-11-06] MEDS ORDERED: POTASSIUM EFFERVESENT TAB 25 MEQ PO ONE (08:15)
[2019-11-06] MEDS: DIGOXIN 0.125 MG TAB PO SCH (10:12)
[2019-11-06] MEDS: ENOXAPARIN SOD 30 MG/0.3 ML SYRINGE SC SCH (10:12)
[2019-11-06] MEDS: LACTULOSE 20Gm/30ML SOLN PO SCH (10:12)
[2019-11-06] MEDS: POLYETHYLENE GLYCOL 17 GM PWDR PO SCH (10:12)
[2019-11-06] MEDS ORDERED: POTASSIUM EFFERVESENT TAB 25 MEQ ONE (12:02)
[2019-11-06] MEDS: HYDROcodone-ACET 5/325MG TAB PO PRN (12:29)
[2019-11-06] MEDS ORDERED: ALBUMIN 5% 500 ML IV ONE (13:45)
[2019-11-06] MEDS ORDERED: DIGOXIN (250MCG/ML) 2 ML AMPULE IV ONE (13:45)
[2019-11-06] MEDS: NOREPINEPHRINE 8 MG/250ML KIT 250 ML IV SCH (16:32)
[2019-11-06] MEDS: TAMSULOSIN HYDROCHLORIDE 0.4 MG CAP PO SCH (18:32)
[2019-11-07] MEDS: PIPERACILLIN-TAZOB 2.25GM 50 ML IV SCH ×4 (00:02→18:09)
[2019-11-07 05:27] LABS: Basophils # (auto) 0.1 10 ^3/uL (0-0.2); Basophils % (auto) 1.4 % (0.0-2.0); Eosinophils # (auto) 0.4 10 ^3/uL (0-0.8); Eosinophils % (auto) 4.1 % (0.0-7.0); Hematocrit 34.2 % (41.0-53.0); Hemoglobin 11.5 g/dL (13.5-17.5); Lymphocytes % (auto) 19.6 % (10.0-50.0); Mean Corpuscular Hemoglobin 32.3 pg (28.0-32.0); Mean Corpuscular Hgb Conc. 33.7 g/dL (32.0-36.0); Mean Corpuscular Volume 95.9 fL (80.0-100.0); Monocytes % (auto) 9.8 % (0.0-12.0); Neutrophils # (auto) 6.7 10 ^3/uL (1.6-8.6); Neutrophils % (auto) 65.1 % (37.0-80.0); Platelet Count (auto) 233 10^3/uL (140-450); Red Blood Cells 3.56 10^6/uL (4.5-5.90); Red Cell Distribution Width 14.8 % (11.8-14.3); White Blood Cell 10.4 10^3/uL (4.4-10.8)
[2019-11-07 05:45] LABS: Calcium 7.2 mg/dL (8.5-10.1); Potassium 3.8 mmol/L (3.5-5.1)
[2019-11-07 05:52] LABS: BUN/Creatinine Ratio 13.9
[2019-11-07] MEDS: MORPHINE SULF INJ 2 MG/ML SYRINGE 1ML IV PRN (08:15)
[2019-11-07] MEDS: LACTULOSE 20Gm/30ML SOLN PO SCH (11:00)
[2019-11-07] MEDS: POLYETHYLENE GLYCOL 17 GM PWDR PO SCH (11:01)
[2019-11-07] MEDS: ENOXAPARIN SOD 30 MG/0.3 ML SYRINGE SC SCH (11:01)
[2019-11-07] MEDS ORDERED: FLUDROCORTISONE ACETATE 0.1 MG TAB PO ONE (14:30)
[2019-11-07 17:19] VITALS: BP 110/67
--- NOTE | 2019-11-07 17:57 | NUR ---
MRSA MRSA SWAB COLLECTED AND SENT TO LAB.
[2019-11-07] MEDS: TAMSULOSIN HYDROCHLORIDE 0.4 MG CAP PO SCH (18:09)
[2019-11-07] MEDS: HYDROcodone-ACET 10/325MG TAB PO PRN (19:24)
--- NOTE | 2019-11-07 19:30 | NUR ---
Opening Shift Note Assumed care of patient, awake and alert X4. No S/S of distress/SOB or pain. Call light is within reach, side rails up x2, bed is in the lowest position. Zosyn is infusing to the AJ midline. Instructed on POC and to call for assist PRN, will continue to monitor for changes Q1hr and PRN.
[2019-11-07] MEDS: FLUDROCORTISONE ACETATE 0.1 MG TAB PO SCH (22:23)
[2019-11-07 22:50] VITALS: BP 113/55
[2019-11-07] MEDS: PIPERACILLIN-TAZOB 3.375GM 100 ML IV SCH (23:49)
[2019-11-08] MEDS: MORPHINE SULF INJ 2 MG/ML SYRINGE 1ML IV PRN ×2 (01:54→19:58)
[2019-11-08 05:35] VITALS: BP 115/61
[2019-11-08] MEDS: PIPERACILLIN-TAZOB 3.375GM 100 ML IV SCH ×3 (05:58→17:57)
[2019-11-08 08:53] VITALS: BP 130/58
[2019-11-08] MEDS: DIGOXIN 0.125 MG TAB PO SCH (11:52)
[2019-11-08] MEDS: FLUDROCORTISONE ACETATE 0.1 MG TAB PO SCH ×2 (11:52→22:05)
[2019-11-08] MEDS: POLYETHYLENE GLYCOL 17 GM PWDR PO SCH (11:52)
[2019-11-08] MEDS: ENOXAPARIN SOD 30 MG/0.3 ML SYRINGE SC SCH (11:53)
[2019-11-08 13:16] VITALS: BP 134/71
[2019-11-08] MEDS: HYDROcodone-ACET 10/325MG TAB PO PRN (13:37)
[2019-11-08 17:02] VITALS: BP 148/68
[2019-11-08] MEDS: TAMSULOSIN HYDROCHLORIDE 0.4 MG CAP PO SCH (17:57)
[2019-11-08] MEDS ORDERED: RIVAROXABAN 20 MG TAB PO ONE (20:00)
--- NOTE | 2019-11-08 20:00 | NUR ---
RECEIVED PATIENT FROM DAY SHIFT RN. PATIENT RESTING IN BED. NO S/S OF DISTRESS NOTED. C/O PAIN @ 02/04. MEDICATED PATIENT ORDERED. PERLA CATH IN PLACE DRAINING TO GRAVITY. POC INSTRUCTED AND ENCOURAGED PATIENT TO CALL FOR TORCH CUTTER IF NEEDED. BED IN LOWEST POSITION WITH SIDE RAILS UP X 2. CALL GARCIA WITHIN REACH. ALARM ON. CONTINUE TO MONITOR FOR CHANGES Q1H AND PRN.
--- NOTE | 2019-11-08 20:25 | NUR ---
REASSESSED PAIN @ 12/04. CONTINUE TO MONITOR.
[2019-11-08 22:00] VITALS: BP 115/72
--- NOTE | 2019-11-08 23:10 | NUR ---
ASSISTED PATIENT TO BEDSIDE COMMODE AND HAD BM. PATIENT TOLERATED WELL. BUT DURING THE TIME, PATIENT'S HR UP TO A FIB 170S TO 180S. WHEN PATIENT BACK TO BED. HR DOWN TO 110S. PATIENT DENIED ANY CHEST PAIN AND CHEST DISCOMFORT. NO SOB AND DISTRESS NOTED. CONTINUE TO MONITOR.
[2019-11-09] MEDS: HYDROcodone-ACET 10/325MG TAB PO PRN ×3 (00:14→17:55)
[2019-11-09] MEDS: PIPERACILLIN-TAZOB 3.375GM 100 ML IV SCH ×5 (00:15→17:05)
--- NOTE | 2019-11-09 00:29 | NUR ---
PATIENT C/O PAIN @ 01/04, AND PREFERRED NORCO. MEDICATED PATIENT ORDERED. CONTINUE TO MONITOR.
--- NOTE | 2019-11-09 01:10 | NUR ---
REASSESSED PAIN, PATIENT SLEEPING. NO S/S OF PAIN NOTED. CONTINUE TO MONITOR.
[2019-11-09 05:00] VITALS: BP 129/73
--- NOTE | 2019-11-09 06:00 | NUR ---
PATIENT SLEEPING. NO S/S OF DISTRESS AND PAIN NOTED. CONTINUE TO MONITOR.
--- NOTE | 2019-11-09 07:00 | NUR ---
Opening Shift Note Received report on the patient. Awake lying in bed. Patient shows no signs of distress at this time. Discussed the plan of care with the patient. Bed in lowest position, side rails up x2, and the call light is within reach.
[2019-11-09 09:00] VITALS: BP 147/80
[2019-11-09] MEDS: POLYETHYLENE GLYCOL 17 GM PWDR PO SCH ×2 (10:00→10:15)
--- NOTE | 2019-11-09 10:01 | NUR ---
Dr. Morrison at bedside. New orders received.
[2019-11-09] MEDS: ENOXAPARIN SOD 30 MG/0.3 ML SYRINGE SC SCH (10:15)
[2019-11-09] MEDS: FLUDROCORTISONE ACETATE 0.1 MG TAB PO SCH ×2 (10:15→21:53)
--- NOTE | 2019-11-09 10:55 | NUR ---
Dr. Rice at bedside. New orders received.
--- NOTE | 2019-11-09 11:28 | NUR ---
IV removal Per Dr Dwayne BILLINGS DC'andrade with clean sterile technique, catheter fully intact. Pressure dressing applied to site. Patient tolerated well.
[2019-11-09 13:00] VITALS: BP 136/70
--- NOTE | 2019-11-09 13:45 | NUR ---
Nutrition Assessment Note please see attached link for complete assessment Est Energy needs BW 63 [id number] kcals (25-30 kcal/kgBW) Est Protein needs: 63-75 gms/day (1.0-1.2 gm/kgBW) Will continue to monitor and reassess prn. Addendum: 11/09/19 at [address] Amended: Links added.
[2019-11-09 16:53] VITALS: BP 97/62
[2019-11-09] MEDS: TAMSULOSIN HYDROCHLORIDE 0.4 MG CAP PO SCH (17:36)
[2019-11-09] MEDS ORDERED: RIVAROXABAN 20 MG TAB PO SCH (18:00)
--- NOTE | 2019-11-09 19:33 | NUR ---
RECEIVED PATIENT FROM DAY SHIFT RN. PATIENT RESTING IN BED. NO S/S OF DISTRESS NOTED. DENIED PAIN FOR NOW. ASSISTED PATIENT TO BEDSIDE COMMODE. PATIENT TOLERATED WELL. PERLA CATH IN PLACE DRAINING TO GRAVITY. POC INSTRUCTED AND ENCOURAGED PATIENT TO CALL FOR DIRECTOR OF GUIDANCE IN PUBLIC SCHOOLS IF NEEDED. BED IN LOWEST POSITION WITH SIDE RAILS UP X 2. CALL GARCIA WITHIN REACH. ALARM ON. CONTINUE TO MONITOR FOR CHANGES Q1H AND PRN.
--- NOTE | 2019-11-09 20:58 | NUR ---
returned call FOR ANOTHER PATIENT, Dr. HAMMER returned call FOR ANOTHER PATIENT, BY THE CHANCE TALKED TO MD HAMMER REGARDING TO PATIENT'S MEDICATION ZOSYN SINCE PER DAY SHIFT RN, PATIENT SHOULD BE D/C IV. updated on patient status and reason for call, orders received. D/C ZOSYN IV. Continue care.
--- NOTE | 2019-11-09 21:45 | NUR ---
ASSISTED PATIENT TO BEDSIDE COMMODE AND HAD BM. PATIENT TOLERATED WELL. BUT DURING THE TIME, PATIENT'S HR UP TO A FIB 170S TO 180S. WHEN PATIENT BACK TO BED. HR DOWN TO 120S. PATIENT DENIED ANY CHEST PAIN AND CHEST DISCOMFORT. NO SOB AND DISTRESS NOTED. CONTINUE TO MONITOR.
[2019-11-09 22:24] VITALS: BP 100/50
[2019-11-10] MEDS: HYDROcodone-ACET 10/325MG TAB PO PRN (00:02)
--- NOTE | 2019-11-10 00:03 | NUR ---
PATIENT C/O PAIN @ 02/04, AND PREFERRED NORCO. MEDICATED PATIENT ORDERED. CONTINUE TO MONITOR.
--- NOTE | 2019-11-10 01:00 | NUR ---
REASSESSED PAIN, PATIENT SLEEPING. NO S/S OF PAIN NOTED. CONTINUE TO MONITOR.
--- NOTE | 2019-11-10 03:48 | NUR ---
PATIENT SLEEPING. NO S/S OF DISTRESS AND PAIN NOTED. CONTINUE TO MONITOR.
[2019-11-10 05:09] VITALS: BP 121/76
--- NOTE | 2019-11-10 07:20 | NUR ---
OPENING NOTE ASSUMED CARE OF PT. ALERT AND ORIENTED. NO S/S OF SOB/DISTRESS NOTED. BED SET TO LOWEST POSITION/LOCKED. BEDSIDE RAILS UP X2. CALL LIGHT WITH IN REACH. INSTRUCTED PATIENT TO CALL FOR ASSISTANCE. UPDATED PT ON POC. PT VERBALIZED UNDERSTANDING. WILL CONTINUE TO MONITOR Q1HR AND PRN.
[2019-11-10 09:00] VITALS: BP 139/70
[2019-11-10] MEDS: FLUDROCORTISONE ACETATE 0.1 MG TAB PO SCH (09:36)
[2019-11-10] MEDS: ENOXAPARIN SOD 30 MG/0.3 ML SYRINGE SC SCH (09:36)
[2019-11-10] MEDS: POLYETHYLENE GLYCOL 17 GM PWDR PO SCH (09:36)
[2019-11-10] MEDS: DIGOXIN 0.125 MG TAB PO SCH (09:39)
[2019-11-10 13:00] VITALS: BP 132/70
[2019-11-10 13:26] VITALS: BP 139/70
--- NOTE | 2019-11-10 14:20 | NUR ---
assessment Patient is a 74 year old male who is alert and oriented. Patients cognitive abilities are intact. Prior to admission patient lived home with family and functioned independently. Patient informed me he is able to care for his own ADLs. Per patient he will return home to his prior living arrangements post discharge and family will transport him home. Patients PCP is Dr Rice. Patient has [employer]. Patient has a consult to resume [facility]. Patient agrees. MD order has been sent to [facility]. Jonathan Knutson at [facility] to start on 11/11/2019. I informed patient he has a right to speak to a psychologist social regarding all care. I informed patient he has a right to participate in any and all discharge planning. Patient does not have a POA and advanced directive. I have offered patient information on POA and advanced directives. I informed the patient the advantages and benefits of having an Advanced Directive. Patient verbalized understanding and agreed to discharge plan. Addendum: 11/10/19 at 1424 by Gladys PETERS Amended: Links added.
--- NOTE | 2019-11-10 14:46 | NUR ---
Discharge Discharge instructions given as ordered. Encourage to follow up with PMD as instructed. All questions and concerns addressed with patient and daughter. Patient verbalized understanding. IV removed with catheter intact, pressure dressing applied. Patient discharged with no catheter, educated and instructed on no care and draining leg bag. patient verbalized understand and provide nurse with return demonstration.Telemetry unit #[id number] returned to ICU.
--- NOTE | 2019-11-10 15:06 | NUR ---
Patient taken to vehicle via wheelchair with all personal belongings, accompanied by staff and family member. No distress noted at time of departure.
== END 2019-11-10 15:07 | disposition home health service (06) | DRG 871 ==
LOC: ER 11:01 → TELE 11:02 → TELE-CENTR 11-07 16:51
PROVIDERS: ADMIT Nurse Practitioner Acute Care; ATTEND Internal Medicine Cardiovascular Disease
DX: A41.9 Sepsis, unspecified organism (principal); N17.0 Acute kidney failure with tubular necrosis; R65.21 Severe sepsis with septic shock; E44.0 Moderate protein-calorie malnutrition; E87.1 Hypo-osmolality and hyponatremia; N13.30 Unspecified hydronephrosis; I50.22 Chronic systolic (congestive) heart failure; I13.0 Hypertensive heart and chronic kidney disease with heart failure and stage 1 through stage 4 chronic kidney disease, or unspecified chronic kidney disease; N13.9 Obstructive and reflux uropathy, unspecified; K59.00 Constipation, unspecified; M19.90 Unspecified osteoarthritis, unspecified site; K74.60 Unspecified cirrhosis of liver; N18.3 Chronic kidney disease, stage 3 (moderate); N40.1 Benign prostatic hyperplasia with lower urinary tract symptoms; I25.10 Atherosclerotic heart disease of native coronary artery without angina pectoris; I25.5 Ischemic cardiomyopathy; Z86.73 Personal history of transient ischemic attack (TIA), and cerebral infarction without residual deficits; Z79.01 Long term (current) use of anticoagulants; Z79.899 Other long term (current) drug therapy; Z82.49 Family history of ischemic heart disease and other diseases of the circulatory system; Z90.49 Acquired absence of other specified parts of digestive tract; Z95.810 Presence of automatic (implantable) cardiac defibrillator; Z68.23 Body mass index [BMI] 23.0-23.9, adult
CPT/HCPCS: 36415; 71045; 74176; 76775; 78226; 80048; 80053; 81001; 83605; 83690; 83880; 84484; 85025; 87040; 87081; 87086; G0378; J2405; J2543

== ENCOUNTER → 2019-11-17 | Outpatient (CLI) | payer MEDICARE, MEDICAID ==
[~2019-11-17] MED LIST changes: +READI-CAT 2 (BARIUM SULF)(VANILLA SMOOTHIE) 450ML ONE
== END | disposition home or self-care (01) ==
LOC: Rad HDHVI 11:15
PROVIDERS: ATTEND Internal Medicine Cardiovascular Disease
DX: J90 Pleural effusion, not elsewhere classified (principal); I70.0 Atherosclerosis of aorta; K74.60 Unspecified cirrhosis of liver; R10.9 Unspecified abdominal pain; K57.30 Diverticulosis of large intestine without perforation or abscess without bleeding; R18.8 Other ascites; K40.90 Unilateral inguinal hernia, without obstruction or gangrene, not specified as recurrent; M47.9 Spondylosis, unspecified; Z90.49 Acquired absence of other specified parts of digestive tract
CPT/HCPCS: 74176

== ENCOUNTER 2019-11-24 06:28 | Day surgery (SDC) | payer MEDICARE, MEDICAID ==
[2019-11-21 09:49] LABS: Basophils # (auto) 0.1 10 ^3/uL (0-0.2); Eosinophils # (auto) 0.5 10 ^3/uL (0-0.8); Eosinophils % (auto) 9.1 % (0.0-7.0); Hematocrit 39.3 % (41.0-53.0); Hemoglobin 13.2 g/dL (13.5-17.5); Lymphocytes # (auto) 1.6 10 ^3/uL (0.4-5.4); Lymphocytes % (auto) 28.6 % (10.0-50.0); Mean Corpuscular Hemoglobin 31.8 pg (28.0-32.0); Mean Corpuscular Hgb Conc. 33.5 g/dL (32.0-36.0); Mean Corpuscular Volume 94.8 fL (80.0-100.0); Monocytes # (auto) 0.5 10 ^3/uL (0-1.3); Monocytes % (auto) 9.7 % (0.0-12.0); Neutrophils # (auto) 2.9 10 ^3/uL (1.6-8.6); Neutrophils % (auto) 51.6 % (37.0-80.0); Platelet Count (auto) 229 10^3/uL (140-450); Red Blood Cells 4.14 10^6/uL (4.5-5.90); Red Cell Distribution Width 16.5 % (11.8-14.3); White Blood Cell 5.6 10^3/uL (4.4-10.8)
[2019-11-21 09:52] LABS: Urine Bacteria NONE SEEN /hpf (None Seen); Urine Blood 1+ /uL (Negative); Urine Mucus FEW (None Seen); Urine Specific Gravity 1.014 (1.001-1.035); Urine WBC 38 /hpf (0 - 3)
[2019-11-21 10:13] LABS: INR 1.18 (0.9-1.15); Partial Thromboplastin Time 32.3 sec (23.64-32.05)
[2019-11-21 10:16] LABS: Potassium 3.6 mmol/L (3.5-5.1)
[2019-11-21 10:26] LABS: Albumin 2.7 g/dL (3.4-5.0); BUN/Creatinine Ratio 7.1; Bilirubin, Total 2.8 mg/dL (0.2-1.0); Calcium 8.1 mg/dL (8.5-10.1); Total Protein 6.7 g/dL (6.4-8.2)
[~2019-11-24] VITALS: Ht 154.9 cm; Wt 63.0 kg
[~2019-11-24 06:28] MED LIST changes: -READI-CAT 2 (BARIUM SULF)(VANILLA SMOOTHIE) 450ML ONE
[2019-11-24] MEDS ORDERED: CIPROFLOXACIN 400MG/200ML 200 ML IV ONE (07:20)
[2019-11-24] MEDS ORDERED: MIDAZOLAM HCL 1MG/1ML-2 ML VIAL ONE (07:39)
[2019-11-24] MEDS ORDERED: fentaNYL CITRATE 100 MCG/2 ML VL ONE (07:39)
[2019-11-24] MEDS ORDERED: MEPERIDINE HCL (25 MG/ML) 1ML VIAL ONE (07:39)
[2019-11-24] MEDS ORDERED: DexAMETHasone SOD PHOS 10MG/1ML VIAL INJ ONE (09:03)
[2019-11-24] MEDS ORDERED: ETOMIDATE (2MG/ML) 20ML VIAL IV ONE (09:03)
[2019-11-24] MEDS ORDERED: ONDANSETRON HCL 4 MG/2 ML VIAL IV PRN (09:45)
[2019-11-24] MEDS ORDERED: MIDAZOLAM HCL 1MG/1ML-2 ML VIAL IV PRN (09:45)
[2019-11-24] MEDS ORDERED: MORPHINE SULFATE 4 MG/ML SYR/VIAL IV PRN (09:45)
[2019-11-24] MEDS ORDERED: HYDROmorphone HCL 2 MG/ML VL IV PRN (09:45)
[2019-11-24] MEDS ORDERED: ePHEDrine SULFATE 50 MG/ML AMP IV PRN (09:45)
[2019-11-24] MEDS ORDERED: LABETALOL HCL 5 MG/ML 4ML SYRINGE IV PRN (09:45)
[2019-11-24] MEDS ORDERED: HYDROmorphone HCL 2 MG/ML VL ONE (09:52)
[2019-11-24 10:34] VITALS: BP 136/74
== END 2019-11-24 10:55 | disposition home or self-care (01) ==
LOC: SUR 06:28
PROVIDERS: ATTEND Urology
DX: N40.1 Benign prostatic hyperplasia with lower urinary tract symptoms (principal); N13.39 Other hydronephrosis; I50.9 Heart failure, unspecified; Z96.89 Presence of other specified functional implants; Z79.899 Other long term (current) drug therapy; Z98.890 Other specified postprocedural states; Z11.59 Encounter for screening for other viral diseases
CPT/HCPCS: 36415; 52601; 80053; 81001; 85025; 85610; 85730; J0744; J1100; J1170; J2175; J2250; J3010; U0003

== ENCOUNTER → 2019-12-15 | Outpatient (CLI) | payer MEDICARE, MEDICAID ==
[2019-12-16 12:34] LABS: Urine Bacteria FEW /hpf (None Seen); Urine Blood 3+ /uL (Negative); Urine Specific Gravity 1.015 (1.001-1.035); Urine WBC 326 /hpf (0 - 3)
== END | disposition home or self-care (01) ==
LOC: LAB 09:17
PROVIDERS: ATTEND Urology
DX: R39.0 Extravasation of urine (principal)
CPT/HCPCS: 81001; 87086

== ENCOUNTER → 2020-01-26 | Outpatient (CLI) | payer MEDICARE, MEDICAID | END | disposition home or self-care (01) | LOC: LAB 14:00 | PROVIDERS: ATTEND Urology | DX: N39.0 Urinary tract infection, site not specified (principal) | CPT/HCPCS: 87086 ==

== ENCOUNTER → 2020-01-30 | Emergency (ER) | payer MEDICARE, MEDICAID ==
[~2020-01-30] VITALS: Ht 165.1 cm; Wt 63.5 kg
[2020-01-30 14:31] VITALS: BP 103/66
[2020-01-30 15:21] LABS: Basophils # (auto) 0.1 10 ^3/uL (0-0.2); Basophils % (auto) 1.1 % (0.0-2.0); Eosinophils # (auto) 0.2 10 ^3/uL (0-0.8); Eosinophils % (auto) 1.7 % (0.0-7.0); Hematocrit 44.1 % (41.0-53.0); Hemoglobin 14.6 g/dL (13.5-17.5); Lymphocytes # (auto) 1.7 10 ^3/uL (0.4-5.4); Lymphocytes % (auto) 17.7 % (10.0-50.0); Mean Corpuscular Hemoglobin 31.7 pg (28.0-32.0); Mean Corpuscular Hgb Conc. 33.1 g/dL (32.0-36.0); Mean Corpuscular Volume 95.8 fL (80.0-100.0); Monocytes # (auto) 0.9 10 ^3/uL (0-1.3); Monocytes % (auto) 10.1 % (0.0-12.0); Neutrophils # (auto) 6.5 10 ^3/uL (1.6-8.6); Neutrophils % (auto) 69.4 % (37.0-80.0); Nucleated Red Blood Cells % 0.2 %; Platelet Count (auto) 308 10^3/uL (140-450); Red Cell Distribution Width 13.9 % (11.8-14.3); White Blood Cell 9.4 10^3/uL (4.4-10.8)
[2020-01-30 15:26] LABS: Albumin 2.6 g/dL (3.4-5.0); Amylase 22 U/L (25-115); Anion Gap 8 (5-15); Blood Urea Nitrogen 29 mg/dL (7-18); Calcium 8.5 mg/dL (8.5-10.1); Carbon Dioxide 25 mmol/L (21-32); Chloride 104 mmol/L (98-107); Glucose 100 mg/dL (74-106); Lipase 54 U/L (73-393); Magnesium 2.5 mg/dL (1.6-2.6); Potassium 3.5 mmol/L (3.5-5.1); Sodium 137 mmol/L (136-145)
[2020-01-30 15:33] LABS: Alanine Aminotransferase 10 U/L (16-61); Alkaline Phosphatase 790 U/L (45-117); Aspartate Aminotransferase 16 U/L (15-37); BUN/Creatinine Ratio 16.8; Bilirubin, Total 4.2 mg/dL (0.2-1.0); GFR African American 50 mL/min; GFR Non-African American 41 mL/min; Total Protein 6.9 g/dL (6.4-8.2)
== END | disposition home or self-care (01) ==
LOC: ER 13:27
DX: K74.60 Unspecified cirrhosis of liver (principal); E44.0 Moderate protein-calorie malnutrition; M19.90 Unspecified osteoarthritis, unspecified site; I25.10 Atherosclerotic heart disease of native coronary artery without angina pectoris; I10 Essential (primary) hypertension; I25.2 Old myocardial infarction
CPT/HCPCS: 36415; 71045; 74176; 80053; 82140; 82150; 83605; 83690; 83735; 84484; 85025; 87040

== ENCOUNTER → 2020-02-19 | Outpatient (CLI) | payer MEDICARE, MEDICAID ==
[~2020-02-19] MED LIST changes: +RIV20T PO; +SACU1TAB7 PO; +SODIUM CHLORIDE 0.9% 500 ML IV ONE; +TAM04C PO
--- NOTE | 2020-02-19 10:25 | NUR ---
pt. to clinic for preop labs and ekg for scheduled pericentesis in one week. Daughter with pt. who is aox3, with distended abd, and in no acute distress. B?P is 56/46 on rt arm and manual 62/44 on lft arm by this R.N. Pt. states he took his Entresto, and Atenenolol approx 2 hours ago, and daughter states his b/p has been runnining low lately. Pt. also presents with no to leg bag which pt. states he emptied this AM. Scant U.O noted. Labs previously drawn before comong to clinic.
--- NOTE | 2020-02-19 10:45 | NUR ---
PRE-OP EKG DONE PER MD ORDER.
--- NOTE | 2020-02-19 11:00 | NUR ---
IV insertion IV access obtained, via clean sterile technique by inserting 22 gauge catheter at after attempt(s). IV secured properly. No trauma to site. Patient tolerated procedure well.
--- NOTE | 2020-02-19 11:03 | NUR ---
MEDS: .9NS STARTED AT 400CC/HR. PT. REMAINS IN SEMI-RECUMBANT POSITION. FOR COMFORT WITH NO C/O. DAUGHTER REMAINS AT CHAIRSIDE FOR HX.
--- NOTE | 2020-02-19 11:33 | NUR ---
B/P 92/56 AFTER 200CC FLUID BOLUS. IV RATE DOWN TO 250CC/HR.
[2020-02-19 11:40] LABS: Basophils # (auto) 0.1 10 ^3/uL (0-0.2); Basophils % (auto) 0.8 % (0.0-2.0); Eosinophils # (auto) 0.1 10 ^3/uL (0-0.8); Eosinophils % (auto) 1.4 % (0.0-7.0); Hematocrit 42.4 % (41.0-53.0); Hemoglobin 14.3 g/dL (13.5-17.5); Lymphocytes # (auto) 1.7 10 ^3/uL (0.4-5.4); Lymphocytes % (auto) 19.7 % (10.0-50.0); Mean Corpuscular Hemoglobin 31.7 pg (28.0-32.0); Mean Corpuscular Hgb Conc. 33.8 g/dL (32.0-36.0); Mean Corpuscular Volume 93.9 fL (80.0-100.0); Monocytes # (auto) 0.6 10 ^3/uL (0-1.3); Monocytes % (auto) 7.7 % (0.0-12.0); Neutrophils # (auto) 5.9 10 ^3/uL (1.6-8.6); Neutrophils % (auto) 70.4 % (37.0-80.0); Platelet Count (auto) 270 10^3/uL (140-450); Red Blood Cells 4.51 10^6/uL (4.5-5.90); Red Cell Distribution Width 13.5 % (11.8-14.3); White Blood Cell 8.4 10^3/uL (4.4-10.8)
[2020-02-19 11:47] LABS: Albumin 2.3 g/dL (3.4-5.0); Calcium 8.9 mg/dL (8.5-10.1); Potassium 4.4 mmol/L (3.5-5.1)
[2020-02-19 11:51] LABS: BUN/Creatinine Ratio 27.8; Total Protein 7.1 g/dL (6.4-8.2)
[2020-02-19 12:01] LABS: Free T4 (Free Thyroxine) 1.37 ng/dL (0.89-1.76)
[2020-02-19 12:02] LABS: INR 1.29 (0.9-1.15); Partial Thromboplastin Time 41.8 sec (23.0-31.2); Prostate Specific Antigen 0.68 ng/mL (0.0-4.0)
--- NOTE | 2020-02-19 12:15 | NUR ---
COMFORT. PT. RESTING WITH NO C/O. 95/58, 79, 18, 98% RA
[2020-02-19 12:45] VITALS: BP 92/56
--- NOTE | 2020-02-19 12:45 | NUR ---
IV removal IV DC'd with sterile technique, catheter fully intact. Pressure dressing applied to site. Patient tolerated procedure well. Discharged with aftercare instructions per MD. NOTE: TOTAL IV FLUIDS IN 475CC/HR. LESS THAN 50CC U.O. NOTED ON LEG BAG AFTER IV FLUIDS.
--- NOTE | 2020-02-19 12:46 | NUR ---
Pre-Op Discharge Summary: See e-MAR for any medications given for this visit. Pre-op orders received and carried out per MD of EKG, LABS and chest xrays. Patient given a copy of EKG with instructions to go to [facility] out patient for further follow up care. ADDITIONAL FOLLOW UP REPORT CALLED TO [employer] HELPER RN ON INTERVENTION DONE FOR HYPOTENSIVE CRISIS AT CLINIC. PT. INSTRUCTED TO HOLD ENTRESTO TONIGHT, AND THIS RN WILL CALL PT'S DAUGHTER FOR MED REC INSTRUCTIONS. Addendum: 02/19/20 at 1327 by KATHRYN PELAYO RN RN CT NOTE NS IV [id number] ADMIN BY MICHAEL KELLY EKG DONE BY ANNABELLE BOBO
== END | disposition home or self-care (01) ==
LOC: CHF HDHVI 10:07
PROVIDERS: ATTEND Internal Medicine Cardiovascular Disease
DX: E86.0 Dehydration (principal); Z01.812 Encounter for preprocedural laboratory examination; I11.0 Hypertensive heart disease with heart failure; I50.9 Heart failure, unspecified; I25.10 Atherosclerotic heart disease of native coronary artery without angina pectoris; I25.2 Old myocardial infarction; I42.8 Other cardiomyopathies; D51.3 Other dietary vitamin B12 deficiency anemia; D64.9 Anemia, unspecified; E55.9 Vitamin D deficiency, unspecified; E11.9 Type 2 diabetes mellitus without complications; R00.2 Palpitations; R53.1 Weakness; R30.0 Dysuria; C61 Malignant neoplasm of prostate; E44.0 Moderate protein-calorie malnutrition; M19.90 Unspecified osteoarthritis, unspecified site
CPT/HCPCS: 36415; 80053; 80061; 80162; 82306; 82607; 83036; 84153; 84403; 84439; 84443; 85025; 85610; 85730; 93005; 96360; G0463; J7040

== ENCOUNTER → 2020-02-26 | Day surgery (SDC) | payer MEDICARE, MEDICAID ==
[~2020-02-26] VITALS: Ht 165.1 cm; Wt 61.7 kg
[~2020-02-26] MED LIST changes: +ALBUMIN 5% 250 ML IV ONE; +HYDROmorphone HCL 2 MG/ML VL IV PRN; +HYDROmorphone HCL 2 MG/ML VL ONE; -RIVA20TA PO; -SACU1TAB PO; -SODIUM CHLORIDE 0.9% 500 ML IV ONE
== END | disposition home or self-care (01) ==
LOC: CATH 09:32
PROVIDERS: ATTEND Internal Medicine Cardiovascular Disease
DX: R18.8 Other ascites (principal); I11.0 Hypertensive heart disease with heart failure; I25.2 Old myocardial infarction; I62.9 Nontraumatic intracranial hemorrhage, unspecified; I20.9 Angina pectoris, unspecified; Z20.828 Contact with and (suspected) exposure to other viral communicable diseases
CPT/HCPCS: 49083; 87205; 89051; P9045; U0003; 76942

== ENCOUNTER 2020-03-29 16:21 | Inpatient (IN) | payer MEDICARE, MEDICAID ==
[~2020-03-29] VITALS: Ht 165.1 cm; Wt 62.5 kg
[~2020-03-29 16:21] MED LIST changes: -ALBUMIN 5% 250 ML IV ONE; -HYDROmorphone HCL 2 MG/ML VL IV PRN; -HYDROmorphone HCL 2 MG/ML VL ONE
[2020-03-29] MEDS ORDERED: SODIUM CHLORIDE 0.9% 1,000 ML IV ONE (16:45)
[2020-03-29] MEDS ORDERED: NOREPINEPHRINE 8 MG/250ML KIT 250 ML IV ONE (16:57)
[2020-03-29] MEDS ORDERED: DEXTROSE 10% 1,000 ML IV ONE ×2 (16:59→17:00)
[2020-03-29] MEDS: NOREPINEPHRINE 8 MG/250ML KIT 250 ML IV SCH (17:17)
[2020-03-29 17:49] LABS: Basophils # (auto) 0.1 10 ^3/uL (0-0.2); Basophils % (auto) 0.7 % (0.0-2.0); Eosinophils # (auto) 0 10 ^3/uL (0-0.8); Eosinophils % (auto) 0.1 % (0.0-7.0); Hematocrit 45.1 % (41.0-53.0); Hemoglobin 14.6 g/dL (13.5-17.5); Lymphocytes # (auto) 1.1 10 ^3/uL (0.4-5.4); Lymphocytes % (auto) 14.8 % (10.0-50.0); Mean Corpuscular Hemoglobin 30.9 pg (28.0-32.0); Mean Corpuscular Hgb Conc. 32.3 g/dL (32.0-36.0); Mean Corpuscular Volume 95.8 fL (80.0-100.0); Monocytes # (auto) 0.4 10 ^3/uL (0-1.3); Monocytes % (auto) 6.1 % (0.0-12.0); Neutrophils # (auto) 5.6 10 ^3/uL (1.6-8.6); Neutrophils % (auto) 78.3 % (37.0-80.0); Platelet Count (auto) 259 10^3/uL (140-450); Red Cell Distribution Width 16.7 % (11.8-14.3); White Blood Cell 7.2 10^3/uL (4.4-10.8)
[2020-03-29 17:54] LABS: Albumin 2.2 g/dL (3.4-5.0)
[2020-03-29 17:56] LABS: INR 1.17 (0.9-1.15); Partial Thromboplastin Time 32.4 sec (23.0-31.2)
[2020-03-29 18:01] LABS: Bilirubin, Total 3.4 mg/dL (0.2-1.0); Total Protein 6.4 g/dL (6.4-8.2)
[2020-03-29 18:11] LABS: Potassium 6.1 mmol/L (3.5-5.1)
[2020-03-29 18:12] LABS: BUN/Creatinine Ratio 16.6
[2020-03-29] MEDS ORDERED: CALCIUM CHL 100MG/ML 1,000 MG in D5W 5% 100 ML IV ONE (19:15)
[2020-03-29] MEDS ORDERED: DEXTROSE (50%) 50ML SYRG IV ONE (19:15)
[2020-03-29] MEDS ORDERED: SODIUM ZIRCONIUM CYCL 10 GM PAK PO ONE (19:15)
[2020-03-29] MEDS ORDERED: NITROGLYCERIN 0.4 MG SL TAB SL PRN ×2 (19:15→20:30)
[2020-03-29] MEDS ORDERED: ALBUTEROL SULF 2.5 MG/0.5ML(0.5%) NEB SOLN NEB ONE (19:15)
[2020-03-29] MEDS ORDERED: MORPHINE SULF INJ 2 MG/ML SYRINGE 1ML IV PRN ×2 (19:15→20:30)
[2020-03-29] MEDS ORDERED: InsuLIN REG 1unit/0.01ml Soln (100units/ml) IV ONE (19:15)
[2020-03-29] MEDS ORDERED: SODIUM BICARBONATE 8.4% INJ 50ML SYRINGE IV ONE (19:15)
[2020-03-29] MEDS ORDERED: FUROSEMIDE 20 MG/2 ML VIAL IV ONE (19:15)
[2020-03-29] MEDS ORDERED: ALBUTEROL SULF 2.5 MG/0.5ML(0.5%) NEB SOLN ONE (19:26)
[2020-03-29] MEDS ORDERED: PROC10TA2 PO (19:46)
[2020-03-29] MEDS ORDERED: OCTREOTIDE ACETATE 100 MCG in SODIUM CHL 0.9% 50 ML IV ONE (20:15)
[2020-03-29] MEDS ORDERED: ALBUMIN 25% 100 ML IV ONE (20:15)
[2020-03-29] MEDS: ALBUMIN 25% 100 ML IV SCH (20:15)
[2020-03-29] MEDS ORDERED: PANTOPRAZOLE 40 MG/10 ML VIAL INJ IV ONE (20:15)
[2020-03-29] MEDS: OCTREOTIDE ACETATE 500 MCG in SODIUM CHL 0.9% 99 ML IV SCH (20:15)
[2020-03-29] MEDS ORDERED: SUCRALFATE 1 GM/10 ML ORAL SUSP PO ONE (20:30)
[2020-03-29] MEDS ORDERED: cefTRIAXone 1GM/50ML D5W 50 ML IV ONE (20:30)
[2020-03-29] MEDS ORDERED: SODIUM CHLORIDE 0.9% 500 ML IV ONE (20:30)
[2020-03-29] MEDS ORDERED: LORazepam 0.5 MG TAB PO PRN (20:30)
[2020-03-29] MEDS ORDERED: DOCUSATE SOD 100 MG CAP PO PRN (20:30)
[2020-03-29] MEDS ORDERED: VASOPRESSIN 50 UNITS in D5W 5% 247.5 ML IV SCH (20:30)
[2020-03-29] MEDS: VASOPRESSIN 50 UNITS in D5W 5% 247.5 ML IV SCH (21:30)
[2020-03-29 21:35] LABS: Basophils # (auto) 0 10 ^3/uL (0-0.2); Basophils % (auto) 0.6 % (0.0-2.0); Eosinophils # (auto) 0 10 ^3/uL (0-0.8); Eosinophils % (auto) 0.1 % (0.0-7.0); Hematocrit 37.8 % (41.0-53.0); Hemoglobin 12.1 g/dL (13.5-17.5); Lymphocytes # (auto) 1.7 10 ^3/uL (0.4-5.4); Lymphocytes % (auto) 23.4 % (10.0-50.0); Mean Corpuscular Hemoglobin 30.5 pg (28.0-32.0); Mean Corpuscular Volume 95.4 fL (80.0-100.0); Monocytes # (auto) 0.4 10 ^3/uL (0-1.3); Monocytes % (auto) 6.2 % (0.0-12.0); Neutrophils # (auto) 4.9 10 ^3/uL (1.6-8.6); Neutrophils % (auto) 69.7 % (37.0-80.0); Nucleated Red Blood Cells % 0.1 %; Platelet Count (auto) 253 10^3/uL (140-450); Red Blood Cells 3.97 10^6/uL (4.5-5.90); Red Cell Distribution Width 16.5 % (11.8-14.3); White Blood Cell 7.1 10^3/uL (4.4-10.8)
[2020-03-29 21:42] LABS: Calcium 7.6 mg/dL (8.5-10.1); Potassium 4.6 mmol/L (3.5-5.1)
[2020-03-29] MEDS: SUCRALFATE 1 GM/10 ML ORAL SUSP PO SCH (22:00)
[2020-03-29] MEDS: SODIUM ZIRCONIUM CYCL 10 GM PAK PO SCH (22:00)
[2020-03-29] MEDS: DIGOXIN (250MCG/ML) 2 ML AMPULE IV SCH (22:05)
[2020-03-30] MEDS: MORPHINE SULF INJ 2 MG/ML SYRINGE 1ML IV PRN (00:34)
[2020-03-30] MEDS: ONDANSETRON HCL 4 MG/2 ML VIAL IV PRN (00:34)
[2020-03-30 01:31] LABS: Urine Bacteria MANY /hpf (None Seen); Urine Blood 2+ /uL (Negative); Urine Hyaline Cast MANY /lpf (0 - 2); Urine Mucus FEW (None Seen); Urine WBC 1601 /hpf (0 - 3); Urine WBC Clumps PRESENT /hpf (None Seen)
[2020-03-30 01:44] LABS: Amphetamine Screen, Urine NEGATIVE (NEGATIVE); Barbiturate Scree,Urine NEGATIVE (NEGATIVE); Benzodiazephine Screen, Urine NEGATIVE (NEGATIVE); Cannabinoid Screen, Urine NEGATIVE (NEGATIVE); Cocaine Screen, Urine NEGATIVE (NEGATIVE); Opiate Scree,Urine POSITIVE (NEGATIVE); Phencyclidine Screen, Urine NEGATIVE (NEGATIVE)
[2020-03-30 01:57] LABS: Alcohol, Urine < 3.0 mg/dL (0-10)
[2020-03-30] MEDS: DIGOXIN (250MCG/ML) 2 ML AMPULE IV SCH ×2 (02:15→08:15)
[2020-03-30] MEDS: ALBUMIN 25% 100 ML IV SCH ×2 (05:16→14:03)
[2020-03-30] MEDS: SODIUM ZIRCONIUM CYCL 10 GM PAK PO SCH ×2 (06:00→14:00)
[2020-03-30] MEDS: OCTREOTIDE ACETATE 500 MCG in SODIUM CHL 0.9% 99 ML IV SCH ×2 (06:15→17:13)
[2020-03-30 06:53] LABS: Basophils # (auto) 0.1 10 ^3/uL (0-0.2); Basophils % (auto) 1.1 % (0.0-2.0); Eosinophils # (auto) 0 10 ^3/uL (0-0.8); Eosinophils % (auto) 0.2 % (0.0-7.0); Hematocrit 35.3 % (41.0-53.0); Hemoglobin 11.9 g/dL (13.5-17.5); Lymphocytes # (auto) 1.7 10 ^3/uL (0.4-5.4); Lymphocytes % (auto) 20.8 % (10.0-50.0); Mean Corpuscular Hemoglobin 31.2 pg (28.0-32.0); Mean Corpuscular Hgb Conc. 33.6 g/dL (32.0-36.0); Mean Corpuscular Volume 92.9 fL (80.0-100.0); Monocytes # (auto) 0.9 10 ^3/uL (0-1.3); Monocytes % (auto) 10.9 % (0.0-12.0); Neutrophils # (auto) 5.4 10 ^3/uL (1.6-8.6); Platelet Count (auto) 255 10^3/uL (140-450); Red Blood Cells 3.81 10^6/uL (4.5-5.90); Red Cell Distribution Width 16.1 % (11.8-14.3)
[2020-03-30] MEDS: SUCRALFATE 1 GM/10 ML ORAL SUSP PO SCH ×4 (07:00→23:19)
[2020-03-30 07:14] LABS: Albumin 3.4 g/dL (3.4-5.0); Calcium 8.3 mg/dL (8.5-10.1); Potassium 4.4 mmol/L (3.5-5.1)
[2020-03-30 07:20] LABS: BUN/Creatinine Ratio 15.7; Total Protein 6.3 g/dL (6.4-8.2)
[2020-03-30] MEDS: cefTRIAXone 1GM/50ML D5W 50 ML IV SCH (09:45)
[2020-03-30] MEDS: PANTOPRAZOLE 40 MG/10 ML VIAL INJ IV SCH ×2 (11:04→23:19)
[2020-03-30] MEDS: NOREPINEPHRINE 8 MG/250ML KIT 250 ML IV SCH (17:14)
[2020-03-30] MEDS: TAMSULOSIN HYDROCHLORIDE 0.4 MG CAP PO SCH (18:33)
[2020-03-30] MEDS: VASOPRESSIN 50 UNITS in D5W 5% 247.5 ML IV SCH (21:00)
[2020-03-31] MEDS: MORPHINE SULF INJ 2 MG/ML SYRINGE 1ML IV PRN ×4 (00:23→20:56)
[2020-03-31] MEDS: ONDANSETRON HCL 4 MG/2 ML VIAL IV PRN ×2 (00:24→20:56)
[2020-03-31] MEDS ORDERED: VANCOMYCIN PER PHARMACY 0 MG IV SCH (04:00)
[2020-03-31] MEDS ORDERED: VANCOMYCIN 1GM/250ML 250 ML IV ONE (04:00)
[2020-03-31] MEDS: NOREPINEPHRINE 8 MG/250ML KIT 250 ML IV SCH ×2 (06:00→12:00)
[2020-03-31] MEDS: SUCRALFATE 1 GM/10 ML ORAL SUSP PO SCH ×4 (06:19→22:00)
[2020-03-31 07:49] LABS: BUN/Creatinine Ratio 16.9; Calcium 8.2 mg/dL (8.5-10.1); Potassium 4.1 mmol/L (3.5-5.1)
[2020-03-31] MEDS: cefTRIAXone 1GM/50ML D5W 50 ML IV SCH (09:36)
[2020-03-31] MEDS: PANTOPRAZOLE 40 MG/10 ML VIAL INJ IV SCH ×2 (10:11→22:00)
[2020-03-31] MEDS: LINEZOLID 600MG/300ML 300 ML IV SCH ×2 (10:24→23:02)
[2020-03-31] MEDS: TAMSULOSIN HYDROCHLORIDE 0.4 MG CAP PO SCH (18:28)
[2020-04-01] MEDS: MORPHINE SULF INJ 2 MG/ML SYRINGE 1ML IV PRN ×2 (02:41→06:41)
[2020-04-01 06:52] LABS: Albumin 2.3 g/dL (3.4-5.0); BUN/Creatinine Ratio 20.3; Calcium 7.9 mg/dL (8.5-10.1); Potassium 4.1 mmol/L (3.5-5.1)
[2020-04-01 06:55] LABS: Bilirubin, Total 2.7 mg/dL (0.2-1.0); Total Protein 5.2 g/dL (6.4-8.2)
[2020-04-01] MEDS: NOREPINEPHRINE 8 MG/250ML KIT 250 ML IV SCH (09:18)
[2020-04-01] MEDS: SUCRALFATE 1 GM/10 ML ORAL SUSP PO SCH ×4 (09:19→21:24)
[2020-04-01] MEDS: PANTOPRAZOLE 40 MG/10 ML VIAL INJ IV SCH ×2 (09:20→21:23)
[2020-04-01] MEDS: cefTRIAXone 1GM/50ML D5W 50 ML IV SCH (09:20)
[2020-04-01] MEDS: LINEZOLID 600MG/300ML 300 ML IV SCH ×2 (10:00→21:23)
[2020-04-01] MEDS: ALBUMIN 25% 100 ML IV SCH ×2 (11:40→18:24)
[2020-04-01] MEDS ORDERED: ALBUMIN 25% 100 ML IV ONE (13:45)
[2020-04-01] MEDS: TAMSULOSIN HYDROCHLORIDE 0.4 MG CAP PO SCH (17:56)
[2020-04-01] MEDS ORDERED: traMADol HCL 50 MG TAB PO PRN (19:30)
[2020-04-01 20:01] LABS: Protein, Urine 29.9 mg/dL (0.0-11.9)
[2020-04-02] MEDS ORDERED: LORazepam 2MG/ML-1ML VIAL IV ONE (00:45)
[2020-04-02] MEDS ORDERED: HYDROcodone-ACET 7.5/325MG TAB PO ONE (00:45)
[2020-04-02] MEDS: ALBUMIN 25% 100 ML IV SCH (04:20)
[2020-04-02] MEDS: SUCRALFATE 1 GM/10 ML ORAL SUSP PO SCH ×4 (07:00→21:39)
[2020-04-02] MEDS: MORPHINE SULF INJ 2 MG/ML SYRINGE 1ML IV PRN ×2 (08:31→18:25)
[2020-04-02] MEDS: cefTRIAXone 1GM/50ML D5W 50 ML IV SCH (09:27)
[2020-04-02] MEDS: LINEZOLID 600MG/300ML 300 ML IV SCH ×2 (10:21→21:40)
[2020-04-02] MEDS: DIGOXIN 0.25 MG TAB PO SCH (10:21)
[2020-04-02] MEDS: PANTOPRAZOLE 40 MG/10 ML VIAL INJ IV SCH ×2 (10:21→21:39)
[2020-04-02] MEDS ORDERED: ALBUMIN 25% 50 ML IV ONE (14:45)
[2020-04-02] MEDS: TAMSULOSIN HYDROCHLORIDE 0.4 MG CAP PO SCH (18:25)
[2020-04-02] MEDS: NOREPINEPHRINE 8 MG/250ML KIT 250 ML IV SCH (21:10)
[2020-04-03 01:10] VITALS: BP 92/43
[2020-04-03] MEDS ORDERED: FLUDROCORTISONE ACETATE 0.1 MG TAB PO ONE (02:30)
[2020-04-03] MEDS ORDERED: KETOROLAC TROMETH 30 MG/ML 1ML VIAL IV PRN (02:30)
[2020-04-03 05:00] VITALS: BP 86/49
[2020-04-03 05:37] LABS: Basophils # (auto) 0 10 ^3/uL (0-0.2); Basophils % (auto) 0.6 % (0.0-2.0); Eosinophils # (auto) 0.2 10 ^3/uL (0-0.8); Eosinophils % (auto) 2.8 % (0.0-7.0); Hematocrit 32.3 % (41.0-53.0); Lymphocytes # (auto) 1.1 10 ^3/uL (0.4-5.4); Lymphocytes % (auto) 15.7 % (10.0-50.0); Mean Corpuscular Hemoglobin 31.3 pg (28.0-32.0); Mean Corpuscular Hgb Conc. 33.9 g/dL (32.0-36.0); Mean Corpuscular Volume 92.2 fL (80.0-100.0); Monocytes # (auto) 0.5 10 ^3/uL (0-1.3); Monocytes % (auto) 7.2 % (0.0-12.0); Neutrophils # (auto) 5.3 10 ^3/uL (1.6-8.6); Neutrophils % (auto) 73.7 % (37.0-80.0); Nucleated Red Blood Cells % 0.1 %; Platelet Count (auto) 153 10^3/uL (140-450); Red Cell Distribution Width 16.2 % (11.8-14.3); White Blood Cell 7.1 10^3/uL (4.4-10.8)
[2020-04-03 06:10] LABS: Calcium 7.8 mg/dL (8.5-10.1); Potassium 4.3 mmol/L (3.5-5.1)
[2020-04-03 06:13] LABS: Albumin 2.6 g/dL (3.4-5.0); BUN/Creatinine Ratio 22.1
[2020-04-03 06:24] LABS: Bilirubin, Total 3.3 mg/dL (0.2-1.0); Total Protein 4.8 g/dL (6.4-8.2)
[2020-04-03] MEDS: SUCRALFATE 1 GM/10 ML ORAL SUSP PO SCH ×4 (06:55→22:51)
[2020-04-03 09:00] VITALS: BP 71/28
[2020-04-03] MEDS: IVABRADINE 5 MG TAB PO SCH ×2 (11:00→22:51)
[2020-04-03] MEDS: ALBUMIN 25% 100 ML IV SCH (11:00)
[2020-04-03] MEDS: DIGOXIN 0.25 MG TAB PO SCH (11:07)
[2020-04-03] MEDS: PANTOPRAZOLE 40 MG/10 ML VIAL INJ IV SCH ×2 (11:07→22:51)
[2020-04-03] MEDS: FLUDROCORTISONE ACETATE 0.1 MG TAB PO SCH ×2 (11:08→22:51)
[2020-04-03] MEDS: cefTRIAXone 1GM/50ML D5W 50 ML IV SCH (11:08)
[2020-04-03] MEDS: LINEZOLID 600MG/300ML 300 ML IV SCH ×2 (11:30→22:51)
[2020-04-03 13:00] VITALS: BP 70/36
[2020-04-03] MEDS ORDERED: ALBUMIN 25% 100 ML IV SCH (17:00)
[2020-04-03] MEDS: TAMSULOSIN HYDROCHLORIDE 0.4 MG CAP PO SCH (17:48)
[2020-04-03 18:00] VITALS: BP 72/36
[2020-04-03 22:00] VITALS: BP 74/33
[2020-04-03] MEDS: RIVAROXABAN 15 MG TAB PO SCH (22:51)
[2020-04-04 05:00] VITALS: BP 95/72
[2020-04-04] MEDS: SUCRALFATE 1 GM/10 ML ORAL SUSP PO SCH ×4 (06:26→22:31)
[2020-04-04 09:00] VITALS: BP 93/45
[2020-04-04] MEDS: IVABRADINE 5 MG TAB PO SCH (09:31)
[2020-04-04] MEDS: cefTRIAXone 1GM/50ML D5W 50 ML IV SCH (09:31)
[2020-04-04] MEDS: FLUDROCORTISONE ACETATE 0.1 MG TAB PO SCH ×2 (09:31→22:32)
[2020-04-04] MEDS: DIGOXIN 0.25 MG TAB PO SCH (09:33)
[2020-04-04] MEDS: RIVAROXABAN 15 MG TAB PO SCH ×2 (09:33→17:53)
[2020-04-04] MEDS: PANTOPRAZOLE 40 MG/10 ML VIAL INJ IV SCH ×2 (09:34→22:31)
[2020-04-04] MEDS: LINEZOLID 600MG/300ML 300 ML IV SCH (10:46)
[2020-04-04 12:30] VITALS: BP 66/37
[2020-04-04 13:57] LABS: Basophils # (auto) 0 10 ^3/uL (0-0.2); Basophils % (auto) 0.6 % (0.0-2.0); Eosinophils # (auto) 0.3 10 ^3/uL (0-0.8); Eosinophils % (auto) 4.1 % (0.0-7.0); Hematocrit 33.3 % (41.0-53.0); Hemoglobin 11.2 g/dL (13.5-17.5); Lymphocytes # (auto) 1.3 10 ^3/uL (0.4-5.4); Lymphocytes % (auto) 17.7 % (10.0-50.0); Mean Corpuscular Hemoglobin 31.2 pg (28.0-32.0); Mean Corpuscular Hgb Conc. 33.8 g/dL (32.0-36.0); Mean Corpuscular Volume 92.2 fL (80.0-100.0); Monocytes # (auto) 0.4 10 ^3/uL (0-1.3); Monocytes % (auto) 5.5 % (0.0-12.0); Neutrophils # (auto) 5.1 10 ^3/uL (1.6-8.6); Neutrophils % (auto) 72.1 % (37.0-80.0); Nucleated Red Blood Cells % 0.1 %; Platelet Count (auto) 162 10^3/uL (140-450); Red Blood Cells 3.61 10^6/uL (4.5-5.90); Red Cell Distribution Width 16.5 % (11.8-14.3); White Blood Cell 7.1 10^3/uL (4.4-10.8)
[2020-04-04 14:21] LABS: Albumin 2.9 g/dL (3.4-5.0); BUN/Creatinine Ratio 15.7; Calcium 7.9 mg/dL (8.5-10.1); Potassium 3.8 mmol/L (3.5-5.1)
[2020-04-04 14:30] LABS: Bilirubin, Total 3.4 mg/dL (0.2-1.0); Total Protein 5.2 g/dL (6.4-8.2)
[2020-04-04] MEDS ORDERED: SODIUM CHLORIDE 0.9% 1,000 ML IV ONE (15:15)
[2020-04-04] MEDS: SODIUM CHLORIDE 0.9% 1,000 ML IV SCH (15:47)
[2020-04-04 17:00] VITALS: BP 86/43
[2020-04-04] MEDS ORDERED: ALBUMIN 25% 100 ML IV ONE (17:00)
[2020-04-04] MEDS: TAMSULOSIN HYDROCHLORIDE 0.4 MG CAP PO SCH (17:53)
[2020-04-04 21:42] VITALS: BP 75/37
[2020-04-04] MEDS: CLINDAMYCIN HCL 150 MG CAP PO SCH (22:31)
[2020-04-05] MEDS: SODIUM CHLORIDE 0.9% 1,000 ML IV SCH ×3 (01:15→22:12)
[2020-04-05 05:00] VITALS: BP 88/35
[2020-04-05] MEDS: SUCRALFATE 1 GM/10 ML ORAL SUSP PO SCH ×5 (06:00→22:00)
[2020-04-05] MEDS: CLINDAMYCIN HCL 150 MG CAP PO SCH (06:00)
[2020-04-05] MEDS: RIVAROXABAN 15 MG TAB PO SCH ×2 (07:54→17:43)
[2020-04-05 09:00] VITALS: BP 96/57
[2020-04-05] MEDS: cefTRIAXone 1GM/50ML D5W 50 ML IV SCH (09:07)
[2020-04-05] MEDS ORDERED: traMADol HCL 50 MG TAB PO PRN (09:30)
[2020-04-05] MEDS: DIGOXIN 0.25 MG TAB PO SCH (10:21)
[2020-04-05] MEDS: PANTOPRAZOLE 40 MG/10 ML VIAL INJ IV SCH ×2 (10:22→21:59)
[2020-04-05] MEDS: FLUDROCORTISONE ACETATE 0.1 MG TAB PO SCH (10:22)
[2020-04-05 13:00] VITALS: BP 97/48
[2020-04-05 13:07] LABS: Calcium 7.9 mg/dL (8.5-10.1); Potassium 4.1 mmol/L (3.5-5.1)
[2020-04-05 13:10] LABS: BUN/Creatinine Ratio 20.1
[2020-04-05 17:24] VITALS: BP 101/56
[2020-04-05] MEDS: TAMSULOSIN HYDROCHLORIDE 0.4 MG CAP PO SCH (17:42)
[2020-04-05] MEDS: MIDODRINE HCL 10 MG TAB PO SCH (17:43)
[2020-04-05 21:34] VITALS: BP 97/63
[2020-04-06 05:12] VITALS: BP 98/56
[2020-04-06] MEDS: SUCRALFATE 1 GM/10 ML ORAL SUSP PO SCH ×2 (06:40→11:10)
[2020-04-06] MEDS: MIDODRINE HCL 10 MG TAB PO SCH ×2 (06:41→11:10)
[2020-04-06] MEDS: SODIUM CHLORIDE 0.9% 1,000 ML IV SCH ×2 (07:15→08:24)
[2020-04-06] MEDS: RIVAROXABAN 15 MG TAB PO SCH (07:56)
[2020-04-06] MEDS: cefTRIAXone 1GM/50ML D5W 50 ML IV SCH (08:24)
[2020-04-06] MEDS: PANTOPRAZOLE 40 MG/10 ML VIAL INJ IV SCH (08:25)
[2020-04-06 09:00] VITALS: BP 91/50
[2020-04-06 13:00] VITALS: BP 112/52
[2020-04-06 13:51] VITALS: BP 112/52
[2020-04-06 17:00] VITALS: BP 90/54
== END 2020-04-06 18:01 | disposition home or self-care (01) | DRG 871 ==
LOC: EDBD 16:21 → ER 16:21 → TELE 19:13 → TELE-WESTW 04-02 23:54
PROVIDERS: ADMIT Hospitalist; ATTEND Internal Medicine Cardiovascular Disease
PROC: 0T9B70Z Drainage of Bladder with Drainage Device, Via Natural or Artificial Opening (ICD-10-PCS; principal; 2020-03-31)
PROC: 0W9G3ZZ Drainage of Peritoneal Cavity, Percutaneous Approach (ICD-10-PCS; 2020-03-31)
DX: A41.9 Sepsis, unspecified organism (principal); I50.23 Acute on chronic systolic (congestive) heart failure; K76.7 Hepatorenal syndrome; N17.0 Acute kidney failure with tubular necrosis; E43 Unspecified severe protein-calorie malnutrition; K92.2 Gastrointestinal hemorrhage, unspecified; K76.6 Portal hypertension; E87.1 Hypo-osmolality and hyponatremia; I48.20 Chronic atrial fibrillation, unspecified; E87.2 Acidosis; D68.59 Other primary thrombophilia; I82.629 Acute embolism and thrombosis of deep veins of unspecified upper extremity; I85.10 Secondary esophageal varices without bleeding; K72.90 Hepatic failure, unspecified without coma; K76.81 Hepatopulmonary syndrome; K70.31 Alcoholic cirrhosis of liver with ascites; I95.9 Hypotension, unspecified; I48.91 Unspecified atrial fibrillation; I86.4 Gastric varices; N18.9 Chronic kidney disease, unspecified; E87.5 Hyperkalemia; D64.9 Anemia, unspecified; M19.90 Unspecified osteoarthritis, unspecified site; I25.10 Atherosclerotic heart disease of native coronary artery without angina pectoris; I25.2 Old myocardial infarction; Z95.0 Presence of cardiac pacemaker; Z90.49 Acquired absence of other specified parts of digestive tract; Z86.73 Personal history of transient ischemic attack (TIA), and cerebral infarction without residual deficits; Z68.22 Body mass index [BMI] 22.0-22.9, adult; Z82.49 Family history of ischemic heart disease and other diseases of the circulatory system; N40.0 Benign prostatic hyperplasia without lower urinary tract symptoms; F10.10 Alcohol abuse, uncomplicated; F17.200 Nicotine dependence, unspecified, uncomplicated; K21.9 Gastro-esophageal reflux disease without esophagitis; N18.30 Chronic kidney disease, stage 3 unspecified; Z79.01 Long term (current) use of anticoagulants; Z95.810 Presence of automatic (implantable) cardiac defibrillator; Z79.899 Other long term (current) drug therapy
CPT/HCPCS: 10022; 36415; 71045; 74176; 76775; 76942; 80048; 80053; 80162; 80307; 81001; 82140; 82565; 82570; 82962; 83036; 83880; 84156; 84300; 84484; 85025; 85048; 85610; 85730; 86850; 86900; 86901; 87040; 87077; 87081; 87086; 87088; 87186; 93005; 93971; 96360; 96375; 99291; C9113; G0378; G0463; J0696; J1815; J1885; J2405; J7060; P9047

== ENCOUNTER 2020-04-16 20:42 | Inpatient (IN) | payer MEDICARE, MEDICAID ==
[~2020-04-16] VITALS: Ht 165.1 cm; Wt 66.7 kg
[~2020-04-16 20:42] MED LIST changes: +PROC10TA2 PO; -SACU1TAB7 PO
[2020-04-16] MEDS ORDERED: NOREPINEPHRINE 8 MG/250ML KIT 250 ML IV ONE (22:18)
[2020-04-16] MEDS: NOREPINEPHRINE 8 MG/250ML KIT 250 ML IV SCH (22:20)
[2020-04-16 23:24] LABS: Basophils # (auto) 0 10 ^3/uL (0-0.2); Basophils % (auto) 0.5 % (0.0-2.0); Eosinophils # (auto) 0 10 ^3/uL (0-0.8); Eosinophils % (auto) 0.8 % (0.0-7.0); Hematocrit 37.9 % (41.0-53.0); Hemoglobin 12.2 g/dL (13.5-17.5); Lymphocytes # (auto) 0.9 10 ^3/uL (0.4-5.4); Lymphocytes % (auto) 23.3 % (10.0-50.0); Mean Corpuscular Hemoglobin 30.1 pg (28.0-32.0); Mean Corpuscular Hgb Conc. 32.3 g/dL (32.0-36.0); Mean Corpuscular Volume 93.1 fL (80.0-100.0); Monocytes # (auto) 0.2 10 ^3/uL (0-1.3); Monocytes % (auto) 5.2 % (0.0-12.0); Neutrophils # (auto) 2.8 10 ^3/uL (1.6-8.6); Neutrophils % (auto) 70.2 % (37.0-80.0); Nucleated Red Blood Cells % 0.2 %; Platelet Count (auto) 190 10^3/uL (140-450); Red Blood Cells 4.06 10^6/uL (4.5-5.90); Red Cell Distribution Width 18.5 % (11.8-14.3)
[2020-04-16 23:52] LABS: INR 1.22 (0.9-1.15); Partial Thromboplastin Time 40.9 sec (23.0-31.2)
[2020-04-17 00:04] LABS: Albumin 2.5 g/dL (3.4-5.0); BUN/Creatinine Ratio 21.8; Bilirubin, Total 3.5 mg/dL (0.2-1.0); Calcium 7.9 mg/dL (8.5-10.1); Magnesium 2.2 mg/dL (1.6-2.6); Total Protein 5.6 g/dL (6.4-8.2)
[2020-04-17] MEDS ORDERED: MORPHINE SULFATE 4 MG/ML SYR/VIAL IV ONE (01:15)
[2020-04-17] MEDS ORDERED: ONDANSETRON HCL 4 MG/2 ML VIAL IV ONE ×2 (01:15→05:00)
[2020-04-17] MEDS ORDERED: DOCUSATE SOD 100 MG CAP PO PRN (05:45)
[2020-04-17] MEDS ORDERED: HYDROcodone-ACET 5/325MG TAB PO PRN (05:45)
[2020-04-17] MEDS ORDERED: ACETAMINOPHEN 325 MG TAB PO PRN (05:45)
[2020-04-17] MEDS ORDERED: NITROGLYCERIN 0.4 MG SL TAB SL PRN (05:45)
[2020-04-17] MEDS: SODIUM CHLOR 0.9% PF (SALINE LOCK) 10ML VIAL/SYR IV SCH ×3 (06:00→22:00)
[2020-04-17] MEDS ORDERED: METOCLOPRAMIDE HCL 5MG/ml INJ 2ml VIAL IV PRN (06:00)
[2020-04-17 07:35] LABS: Basophils # (auto) 0 10 ^3/uL (0-0.2); Basophils % (auto) 0.4 % (0.0-2.0); Eosinophils # (auto) 0 10 ^3/uL (0-0.8); Hematocrit 38.6 % (41.0-53.0); Hemoglobin 12.6 g/dL (13.5-17.5); Lymphocytes # (auto) 0.9 10 ^3/uL (0.4-5.4); Lymphocytes % (auto) 11.1 % (10.0-50.0); Mean Corpuscular Hemoglobin 30.6 pg (28.0-32.0); Mean Corpuscular Hgb Conc. 32.6 g/dL (32.0-36.0); Mean Corpuscular Volume 93.8 fL (80.0-100.0); Monocytes # (auto) 0.6 10 ^3/uL (0-1.3); Monocytes % (auto) 7.4 % (0.0-12.0); Neutrophils # (auto) 6.5 10 ^3/uL (1.6-8.6); Neutrophils % (auto) 81.1 % (37.0-80.0); Nucleated Red Blood Cells % 0.2 %; Platelet Count (auto) 206 10^3/uL (140-450); Red Blood Cells 4.11 10^6/uL (4.5-5.90); Red Cell Distribution Width 19.1 % (11.8-14.3)
[2020-04-17 08:16] LABS: Albumin 2.5 g/dL (3.4-5.0); Calcium 7.8 mg/dL (8.5-10.1); Potassium 4.7 mmol/L (3.5-5.1)
[2020-04-17 08:20] LABS: BUN/Creatinine Ratio 20.8; Bilirubin, Total 3.4 mg/dL (0.2-1.0); Total Protein 5.7 g/dL (6.4-8.2)
[2020-04-17 09:09] LABS: INR 1.15 (0.9-1.15); Partial Thromboplastin Time 42.7 sec (23.0-31.2)
[2020-04-17] MEDS: ZINC SULFATE 220mg CAP or TAB PO SCH (09:26)
[2020-04-17] MEDS: FAMOTIDINE 20 MG TAB PO SCH (09:26)
[2020-04-17] MEDS: ASCORBIC ACID 500 MG TAB PO SCH ×2 (09:26→23:00)
[2020-04-17] MEDS: MULTIPLE VITAMIN TAB PO SCH (09:26)
[2020-04-17] MEDS: MORPHINE SULF INJ 2 MG/ML SYRINGE 1ML IV PRN ×2 (12:07→18:47)
[2020-04-17] MEDS ORDERED: MIDODRINE HCL 10 MG TAB PO ONE (13:45)
[2020-04-17] MEDS: MIDODRINE HCL 10 MG TAB PO SCH (18:19)
[2020-04-17] MEDS: NOREPINEPHRINE 8 MG/250ML KIT 250 ML IV SCH (23:00)
[2020-04-17] MEDS: ONDANSETRON HCL 4 MG/2 ML VIAL IV PRN (23:06)
[2020-04-17] MEDS: MORPHINE SULFATE 4 MG/ML SYR/VIAL IV PRN (23:06)
[2020-04-18] MEDS: ONDANSETRON HCL 4 MG/2 ML VIAL IV PRN (04:42)
[2020-04-18] MEDS: SODIUM CHLOR 0.9% PF (SALINE LOCK) 10ML VIAL/SYR IV SCH ×3 (06:00→22:00)
[2020-04-18 06:45] LABS: Basophils # (auto) 0 10 ^3/uL (0-0.2); Basophils % (auto) 0.2 % (0.0-2.0); Eosinophils # (auto) 0 10 ^3/uL (0-0.8); Hematocrit 36.6 % (41.0-53.0); Hemoglobin 12.2 g/dL (13.5-17.5); Lymphocytes # (auto) 0.7 10 ^3/uL (0.4-5.4); Lymphocytes % (auto) 6.5 % (10.0-50.0); Mean Corpuscular Hemoglobin 30.6 pg (28.0-32.0); Mean Corpuscular Hgb Conc. 33.2 g/dL (32.0-36.0); Monocytes # (auto) 0.5 10 ^3/uL (0-1.3); Monocytes % (auto) 4.7 % (0.0-12.0); Neutrophils # (auto) 9.3 10 ^3/uL (1.6-8.6); Neutrophils % (auto) 88.6 % (37.0-80.0); Nucleated Red Blood Cells % 0.1 %; Platelet Count (auto) 218 10^3/uL (140-450); Red Blood Cells 3.98 10^6/uL (4.5-5.90); Red Cell Distribution Width 18.6 % (11.8-14.3); White Blood Cell 10.5 10^3/uL (4.4-10.8)
[2020-04-18 07:03] LABS: INR 1.14 (0.9-1.15)
[2020-04-18 07:11] LABS: Albumin 2.7 g/dL (3.4-5.0); BUN/Creatinine Ratio 15.7; Bilirubin, Total 3.5 mg/dL (0.2-1.0); Calcium 8.1 mg/dL (8.5-10.1); Potassium 4.6 mmol/L (3.5-5.1); Total Protein 6.3 g/dL (6.4-8.2)
[2020-04-18] MEDS: MIDODRINE HCL 10 MG TAB PO SCH ×2 (07:57→18:00)
[2020-04-18] MEDS: MORPHINE SULFATE 4 MG/ML SYR/VIAL IV PRN (08:20)
[2020-04-18] MEDS: ZINC SULFATE 220mg CAP or TAB PO SCH (10:00)
[2020-04-18] MEDS: ASCORBIC ACID 500 MG TAB PO SCH ×2 (10:00→22:00)
[2020-04-18] MEDS: MULTIPLE VITAMIN TAB PO SCH (10:00)
[2020-04-18] MEDS: FAMOTIDINE 20 MG TAB PO SCH (10:00)
[2020-04-18] MEDS: NOREPINEPHRINE 8 MG/250ML KIT 250 ML IV SCH (13:00)
[2020-04-18] MEDS: FLUDROCORTISONE ACETATE 0.1 MG TAB PO SCH (22:00)
[2020-04-19] VITALS (94 sets, daily range): BP systolic 66–123; BP diastolic 13–75
[2020-04-19] MEDS: SODIUM CHLOR 0.9% PF (SALINE LOCK) 10ML VIAL/SYR IV SCH ×3 (06:00→21:56)
[2020-04-19] MEDS: MIDODRINE HCL 10 MG TAB PO SCH ×2 (08:31→18:28)
[2020-04-19] MEDS: NOREPINEPHRINE 8 MG/250ML KIT 250 ML IV SCH (08:31)
[2020-04-19] MEDS: ZINC SULFATE 220mg CAP or TAB PO SCH ×2 (10:00→11:16)
[2020-04-19] MEDS: FLUDROCORTISONE ACETATE 0.1 MG TAB PO SCH ×3 (10:00→21:48)
[2020-04-19] MEDS: ASCORBIC ACID 500 MG TAB PO SCH ×2 (10:00→21:49)
[2020-04-19] MEDS: MULTIPLE VITAMIN TAB PO SCH ×2 (11:16→12:54)
[2020-04-19] MEDS: PANTOPRAZOLE 40 MG/10 ML VIAL INJ IV SCH (11:16)
[2020-04-19] MEDS ORDERED: ALBUMIN 25% 100 ML IV ONE (14:45)
[2020-04-20] VITALS (73 sets, daily range): BP systolic 74–126; BP diastolic 39–82
[2020-04-20 04:36] LABS: Basophils # (auto) 0 10 ^3/uL (0-0.2); Basophils % (auto) 0.1 % (0.0-2.0); Eosinophils # (auto) 0 10 ^3/uL (0-0.8); Hematocrit 32.8 % (41.0-53.0); Hemoglobin 10.9 g/dL (13.5-17.5); Lymphocytes # (auto) 0.6 10 ^3/uL (0.4-5.4); Lymphocytes % (auto) 7.7 % (10.0-50.0); Mean Corpuscular Hemoglobin 30.2 pg (28.0-32.0); Mean Corpuscular Hgb Conc. 33.4 g/dL (32.0-36.0); Mean Corpuscular Volume 90.6 fL (80.0-100.0); Monocytes # (auto) 0.3 10 ^3/uL (0-1.3); Monocytes % (auto) 4.2 % (0.0-12.0); Neutrophils # (auto) 6.6 10 ^3/uL (1.6-8.6); Nucleated Red Blood Cells % 0.1 %; Platelet Count (auto) 174 10^3/uL (140-450); Red Blood Cells 3.62 10^6/uL (4.5-5.90); White Blood Cell 7.5 10^3/uL (4.4-10.8)
[2020-04-20 05:14] LABS: Albumin 2.5 g/dL (3.4-5.0); BUN/Creatinine Ratio 26.4; Bilirubin, Total 3.6 mg/dL (0.2-1.0); Calcium 7.6 mg/dL (8.5-10.1); Total Protein 5.3 g/dL (6.4-8.2)
[2020-04-20] MEDS: ACETAMINOPHEN 325 MG TAB PO PRN (09:01)
[2020-04-20] MEDS: SODIUM CHLOR 0.9% PF (SALINE LOCK) 10ML VIAL/SYR IV SCH ×3 (09:27→20:59)
[2020-04-20] MEDS: ASCORBIC ACID 500 MG TAB PO SCH ×2 (10:06→21:00)
[2020-04-20] MEDS: FLUDROCORTISONE ACETATE 0.1 MG TAB PO SCH ×2 (10:06→21:00)
[2020-04-20] MEDS: ZINC SULFATE 220mg CAP or TAB PO SCH (10:06)
[2020-04-20] MEDS: MIDODRINE HCL 10 MG TAB PO SCH ×2 (10:06→17:36)
[2020-04-20] MEDS: NOREPINEPHRINE 8 MG/250ML KIT 250 ML IV SCH (13:48)
[2020-04-20] MEDS: PANTOPRAZOLE 40 MG/10 ML VIAL INJ IV SCH (14:00)
[2020-04-20] MEDS: PIPERACILLIN-TAZOB 2.25GM 50 ML IV SCH ×2 (18:00→23:25)
[2020-04-21] VITALS (44 sets, daily range): BP systolic 80–120; BP diastolic 44–70
[2020-04-21 04:12] LABS: Albumin 2.2 g/dL (3.4-5.0); BUN/Creatinine Ratio 34.3; Calcium 7.7 mg/dL (8.5-10.1); Potassium 3.9 mmol/L (3.5-5.1)
[2020-04-21 04:15] LABS: Bilirubin, Total 3.3 mg/dL (0.2-1.0); Total Protein 5.4 g/dL (6.4-8.2)
[2020-04-21] MEDS: PIPERACILLIN-TAZOB 2.25GM 50 ML IV SCH (04:57)
[2020-04-21] MEDS: SODIUM CHLOR 0.9% PF (SALINE LOCK) 10ML VIAL/SYR IV SCH ×3 (06:00→21:01)
[2020-04-21] MEDS: PANTOPRAZOLE 40 MG/10 ML VIAL INJ IV SCH (10:00)
[2020-04-21] MEDS: MIDODRINE HCL 10 MG TAB PO SCH ×2 (10:24→17:35)
[2020-04-21] MEDS: ASCORBIC ACID 500 MG TAB PO SCH (10:25)
[2020-04-21] MEDS: ZINC SULFATE 220mg CAP or TAB PO SCH (10:25)
[2020-04-21] MEDS: MULTIPLE VITAMIN TAB PO SCH (10:25)
[2020-04-21] MEDS: FLUDROCORTISONE ACETATE 0.1 MG TAB PO SCH ×2 (10:25→20:51)
[2020-04-21] MEDS: PIPERACILLIN-TAZOB 3.375GM 100 ML IV SCH ×2 (11:37→17:35)
[2020-04-21] MEDS: ACETAMINOPHEN 325 MG TAB PO PRN (17:35)
[2020-04-21] MEDS: ONDANSETRON HCL 4 MG/2 ML VIAL IV PRN (21:01)
[2020-04-21] MEDS ORDERED: LEVALBUTEROL HCL 1.25 MG/3 ML NEB NEB SCH (22:00)
[2020-04-21] MEDS: ALBUTEROL SULF HFA 90MCG INH 200DOSE IN SCH (23:54)
[2020-04-22] VITALS (47 sets, daily range): BP systolic 67–110; BP diastolic 32–70
[2020-04-22] MEDS: PIPERACILLIN-TAZOB 3.375GM 100 ML IV SCH ×5 (00:47→23:02)
[2020-04-22] MEDS: MORPHINE SULFATE 4 MG/ML SYR/VIAL IV PRN ×2 (02:29→22:08)
[2020-04-22] MEDS: SODIUM CHLOR 0.9% PF (SALINE LOCK) 10ML VIAL/SYR IV SCH ×3 (03:18→20:03)
[2020-04-22] MEDS: NOREPINEPHRINE 8 MG/250ML KIT 250 ML IV SCH (03:34)
[2020-04-22] MEDS: ALBUTEROL SULF HFA 90MCG INH 200DOSE IN SCH ×3 (06:13→22:00)
[2020-04-22] MEDS: MIDODRINE HCL 10 MG TAB PO SCH ×2 (08:53→18:00)
[2020-04-22] MEDS: ZINC SULFATE 220mg CAP or TAB PO SCH (11:31)
[2020-04-22] MEDS: PANTOPRAZOLE 40 MG/10 ML VIAL INJ IV SCH (11:31)
[2020-04-22] MEDS: DexAMETHasone SOD PHOS 10MG/1ML VIAL INJ IV SCH (11:31)
[2020-04-22] MEDS: MULTIPLE VITAMIN TAB PO SCH (11:32)
[2020-04-22] MEDS: FLUDROCORTISONE ACETATE 0.1 MG TAB PO SCH ×2 (11:32→20:03)
[2020-04-22] MEDS: CHOLECALCIFEROL (VITD3) 1,000UNIT=25mCg TAB PO SCH (11:32)
[2020-04-22] MEDS: ASCORBIC ACID 1,000 MG TAB PO SCH (11:32)
[2020-04-22] MEDS ORDERED: AMIODARONE HCL 150 MG in D5W 5% 100 ML IV ONE (12:45)
[2020-04-22] MEDS ORDERED: AMIODARONE 450mg/250ml AE 250 ML IV SCH ×2 (12:45→18:45)
[2020-04-23] VITALS (57 sets, daily range): BP systolic 73–122; BP diastolic 34–84
[2020-04-23] MEDS: AMIODARONE 450mg/250ml AE 250 ML IV SCH ×4 (02:00→15:01)
[2020-04-23] MEDS: NOREPINEPHRINE 8 MG/250ML KIT 250 ML IV SCH ×2 (03:30→13:30)
[2020-04-23] MEDS: MORPHINE SULFATE 4 MG/ML SYR/VIAL IV PRN (03:47)
[2020-04-23] MEDS: SODIUM CHLOR 0.9% PF (SALINE LOCK) 10ML VIAL/SYR IV SCH ×3 (05:21→22:00)
[2020-04-23] MEDS: PIPERACILLIN-TAZOB 3.375GM 100 ML IV SCH ×3 (05:21→18:50)
[2020-04-23] MEDS: ALBUTEROL SULF HFA 90MCG INH 200DOSE IN SCH ×3 (06:00→22:24)
[2020-04-23] MEDS: dilTIAZem 125mg/125ml BAG KIT 100 ML IV SCH ×2 (06:51→15:35)
[2020-04-23] MEDS: MIDODRINE HCL 10 MG TAB PO SCH ×2 (08:00→18:00)
[2020-04-23] MEDS: MORPHINE SULF INJ 2 MG/ML SYRINGE 1ML IV PRN ×2 (08:43→19:03)
[2020-04-23 09:47] LABS: Basophils # (auto) 0 10 ^3/uL (0-0.2); Basophils % (auto) 0.2 % (0.0-2.0); Eosinophils # (auto) 0 10 ^3/uL (0-0.8); Eosinophils % (auto) 0.3 % (0.0-7.0); Hematocrit 45.2 % (41.0-53.0); Hemoglobin 14.8 g/dL (13.5-17.5); Lymphocytes # (auto) 1.2 10 ^3/uL (0.4-5.4); Lymphocytes % (auto) 11.4 % (10.0-50.0); Mean Corpuscular Hgb Conc. 32.7 g/dL (32.0-36.0); Monocytes # (auto) 0.6 10 ^3/uL (0-1.3); Monocytes % (auto) 6.3 % (0.0-12.0); Neutrophils # (auto) 8.3 10 ^3/uL (1.6-8.6); Neutrophils % (auto) 81.8 % (37.0-80.0); Nucleated Red Blood Cells % 0.2 %; Platelet Count (auto) 198 10^3/uL (140-450); Red Blood Cells 4.91 10^6/uL (4.5-5.90); Red Cell Distribution Width 19.4 % (11.8-14.3); White Blood Cell 10.1 10^3/uL (4.4-10.8)
[2020-04-23] MEDS: DexAMETHasone SOD PHOS 10MG/1ML VIAL INJ IV SCH (09:57)
[2020-04-23] MEDS: ZINC SULFATE 220mg CAP or TAB PO SCH (09:58)
[2020-04-23] MEDS: MULTIPLE VITAMIN TAB PO SCH (09:58)
[2020-04-23] MEDS: PANTOPRAZOLE 40 MG/10 ML VIAL INJ IV SCH (09:58)
[2020-04-23] MEDS: CHOLECALCIFEROL (VITD3) 1,000UNIT=25mCg TAB PO SCH (09:58)
[2020-04-23] MEDS: ASCORBIC ACID 1,000 MG TAB PO SCH (09:58)
[2020-04-23] MEDS: FLUDROCORTISONE ACETATE 0.1 MG TAB PO SCH ×2 (09:58→22:00)
[2020-04-23 10:00] LABS: INR 1.24 (0.9-1.15)
[2020-04-23 10:08] LABS: BUN/Creatinine Ratio 31.6; Calcium 7.7 mg/dL (8.5-10.1); Potassium 3.9 mmol/L (3.5-5.1)
[2020-04-23] MEDS ORDERED: PHENYLEPHRINE IV 250 ML IV SCH (10:15)
[2020-04-23] MEDS ORDERED: DIGOXIN (250MCG/ML) 2 ML AMPULE IV ONE ×2 (11:00→11:30)
[2020-04-23] MEDS: PHENYLEPHRINE IV 250 ML IV SCH ×3 (11:30→20:09)
[2020-04-23] MEDS: ALBUMIN 25% 100 ML IV SCH ×2 (12:24→14:03)
[2020-04-23] MEDS ORDERED: ALBUMIN 25% 100 ML IV ONE (13:00)
[2020-04-23] MEDS: ONDANSETRON HCL 4 MG/2 ML VIAL IV PRN (21:24)
[2020-04-23] MEDS: ALPRAZolam 0.5 MG TAB PO PRN (23:00)
[2020-04-24] VITALS (66 sets, daily range): BP systolic 77–137; BP diastolic 33–100
[2020-04-24] MEDS: MORPHINE SULFATE 4 MG/ML SYR/VIAL IV PRN ×4 (01:00→13:12)
[2020-04-24] MEDS: ONDANSETRON HCL 4 MG/2 ML VIAL IV PRN (03:40)
[2020-04-24] MEDS: SODIUM CHLOR 0.9% PF (SALINE LOCK) 10ML VIAL/SYR IV SCH ×3 (05:40→21:58)
[2020-04-24] MEDS: ALBUTEROL SULF HFA 90MCG INH 200DOSE IN SCH ×3 (05:47→22:24)
[2020-04-24] MEDS: PIPERACILLIN-TAZOB 3.375GM 100 ML IV SCH ×4 (06:16→18:00)
[2020-04-24] MEDS: PHENYLEPHRINE IV 250 ML IV SCH ×2 (07:42→19:50)
[2020-04-24] MEDS: MIDODRINE HCL 10 MG TAB PO SCH ×2 (07:58→18:00)
[2020-04-24] MEDS: ASCORBIC ACID 1,000 MG TAB PO SCH (10:00)
[2020-04-24] MEDS: FLUDROCORTISONE ACETATE 0.1 MG TAB PO SCH ×2 (10:00→21:58)
[2020-04-24] MEDS: CHOLECALCIFEROL (VITD3) 1,000UNIT=25mCg TAB PO SCH (10:00)
[2020-04-24] MEDS: ZINC SULFATE 220mg CAP or TAB PO SCH (10:00)
[2020-04-24] MEDS: DexAMETHasone SOD PHOS 10MG/1ML VIAL INJ IV SCH (10:08)
[2020-04-24] MEDS: PANTOPRAZOLE 40 MG/10 ML VIAL INJ IV SCH (10:08)
[2020-04-24] MEDS: MULTIPLE VITAMIN TAB PO SCH (10:09)
[2020-04-24 11:49] LABS: BUN/Creatinine Ratio 29.6; Calcium 7.7 mg/dL (8.5-10.1)
[2020-04-24] MEDS: ALBUMIN 25% 100 ML IV SCH ×2 (12:00→13:00)
[2020-04-24 12:01] LABS: Potassium 3.5 mmol/L (3.5-5.1)
[2020-04-24] MEDS: AMIODARONE HCL 200 MG TAB PO SCH ×2 (14:48→21:58)
[2020-04-24] MEDS ORDERED: VANCOMYCIN 1GM/250ML 250 ML IV ONE (16:00)
[2020-04-24] MEDS: ALPRAZolam 0.5 MG TAB PO PRN ×2 (17:45→17:48)
[2020-04-24] MEDS ORDERED: VANCOMYCIN PER PHARMACY 0 MG IV SCH (20:00)
[2020-04-25] VITALS (11 sets, daily range): BP systolic 94–114; BP diastolic 51–73
[2020-04-25] MEDS: MORPHINE SULFATE 4 MG/ML SYR/VIAL IV PRN ×3 (02:35→17:12)
[2020-04-25] MEDS: NOREPINEPHRINE 8 MG/250ML KIT 250 ML IV SCH (03:30)
[2020-04-25] MEDS: PHENYLEPHRINE IV 250 ML IV SCH ×2 (04:10→12:30)
[2020-04-25] MEDS: SODIUM CHLOR 0.9% PF (SALINE LOCK) 10ML VIAL/SYR IV SCH ×3 (05:43→21:29)
[2020-04-25] MEDS: ALBUTEROL SULF HFA 90MCG INH 200DOSE IN SCH ×3 (06:00→22:16)
[2020-04-25] MEDS: PIPERACILLIN-TAZOB 3.375GM 100 ML IV SCH ×2 (06:26)
[2020-04-25] MEDS ORDERED: TPN PER PHARMACY 0 ML IV SCH (08:15)
[2020-04-25] MEDS: MIDODRINE HCL 10 MG TAB PO SCH ×2 (09:22→16:58)
[2020-04-25] MEDS: DexAMETHasone SOD PHOS 10MG/1ML VIAL INJ IV SCH (09:22)
[2020-04-25] MEDS: AMIODARONE HCL 200 MG TAB PO SCH ×2 (09:23→21:50)
[2020-04-25] MEDS: MULTIPLE VITAMIN TAB PO SCH (09:23)
[2020-04-25] MEDS: ASCORBIC ACID 1,000 MG TAB PO SCH (09:23)
[2020-04-25] MEDS: CHOLECALCIFEROL (VITD3) 1,000UNIT=25mCg TAB PO SCH (09:23)
[2020-04-25] MEDS: PANTOPRAZOLE 40 MG/10 ML VIAL INJ IV SCH (09:23)
[2020-04-25] MEDS: FLUDROCORTISONE ACETATE 0.1 MG TAB PO SCH ×2 (09:24→21:50)
[2020-04-25] MEDS: ZINC SULFATE 220mg CAP or TAB PO SCH (09:24)
[2020-04-25 10:09] LABS: Basophils # (auto) 0 10 ^3/uL (0-0.2); Basophils % (auto) 0.1 % (0.0-2.0); Eosinophils # (auto) 0 10 ^3/uL (0-0.8); Hematocrit 32.3 % (41.0-53.0); Hemoglobin 10.9 g/dL (13.5-17.5); Lymphocytes # (auto) 0.7 10 ^3/uL (0.4-5.4); Lymphocytes % (auto) 6.9 % (10.0-50.0); Mean Corpuscular Hemoglobin 30.4 pg (28.0-32.0); Mean Corpuscular Hgb Conc. 33.7 g/dL (32.0-36.0); Mean Corpuscular Volume 90.3 fL (80.0-100.0); Monocytes # (auto) 0.6 10 ^3/uL (0-1.3); Monocytes % (auto) 5.7 % (0.0-12.0); Neutrophils # (auto) 9.3 10 ^3/uL (1.6-8.6); Neutrophils % (auto) 87.3 % (37.0-80.0); Nucleated Red Blood Cells % 0.1 %; Platelet Count (auto) 161 10^3/uL (140-450); Red Blood Cells 3.57 10^6/uL (4.5-5.90); Red Cell Distribution Width 19.1 % (11.8-14.3); White Blood Cell 10.6 10^3/uL (4.4-10.8)
[2020-04-25 10:33] LABS: Albumin 2.3 g/dL (3.4-5.0); BUN/Creatinine Ratio 27.3; Calcium 7.6 mg/dL (8.5-10.1); Magnesium 2.1 mg/dL (1.6-2.6); Phosphorus 3.1 mg/dL (2.5-4.90)
[2020-04-25 10:38] LABS: Bilirubin, Total 2.9 mg/dL (0.2-1.0); Pre Albumin 3.9 mg/dL (20.0-40.0); Total Protein 4.7 g/dL (6.4-8.2)
[2020-04-25] MEDS: PIPERACILLIN-TAZOB 2.25GM 50 ML IV SCH (16:58)
[2020-04-25] MEDS ORDERED: AMINO ACID INFUSION IN D5W 2,000 ML IV NR (20:00)
[2020-04-25] MEDS ORDERED: TPN PER PHARMACY IV NR ×5 (20:00)
[2020-04-25] MEDS: ALBUMIN 25% 100 ML IV SCH ×2 (20:39→21:49)
[2020-04-26] MEDS: PIPERACILLIN-TAZOB 2.25GM 50 ML IV SCH ×4 (00:01→19:25)
[2020-04-26] MEDS: ACCU-CHEK COMFORT CURVE STRIP VI SCH ×4 (00:02→18:00)
[2020-04-26 00:13] VITALS: BP 111/70
[2020-04-26 05:00] VITALS: BP 102/59
[2020-04-26] MEDS: ALBUTEROL SULF HFA 90MCG INH 200DOSE IN SCH ×3 (05:57→22:00)
[2020-04-26] MEDS: SODIUM CHLOR 0.9% PF (SALINE LOCK) 10ML VIAL/SYR IV SCH ×3 (06:34→22:14)
[2020-04-26] MEDS: InsuLIN REG 1unit/0.01ml Soln (100units/ml) SC SCH ×4 (06:35→18:00)
[2020-04-26 08:25] LABS: Potassium 3.3 mmol/L (3.5-5.1)
[2020-04-26 08:36] LABS: Albumin 2.8 g/dL (3.4-5.0); BUN/Creatinine Ratio 25.2; Bilirubin, Total 3.4 mg/dL (0.2-1.0); Magnesium 2.2 mg/dL (1.6-2.6); Phosphorus 2.5 mg/dL (2.5-4.90); Total Protein 5.2 g/dL (6.4-8.2)
[2020-04-26 09:00] VITALS: BP 112/75
[2020-04-26] MEDS: DexAMETHasone SOD PHOS 10MG/1ML VIAL INJ IV SCH (09:23)
[2020-04-26] MEDS: MIDODRINE HCL 10 MG TAB PO SCH ×2 (09:23→19:25)
[2020-04-26] MEDS: PANTOPRAZOLE 40 MG/10 ML VIAL INJ IV SCH (09:23)
[2020-04-26] MEDS: MULTIPLE VITAMIN TAB PO SCH (09:24)
[2020-04-26] MEDS: FLUDROCORTISONE ACETATE 0.1 MG TAB PO SCH ×2 (09:24→21:54)
[2020-04-26] MEDS: ASCORBIC ACID 1,000 MG TAB PO SCH (09:24)
[2020-04-26] MEDS: AMIODARONE HCL 200 MG TAB PO SCH ×2 (09:24→21:54)
[2020-04-26] MEDS: CHOLECALCIFEROL (VITD3) 1,000UNIT=25mCg TAB PO SCH (09:25)
[2020-04-26] MEDS: ZINC SULFATE 220mg CAP or TAB PO SCH (09:25)
[2020-04-26] MEDS ORDERED: POTASSIUM PHOSPHATE 22 MEQ in SODIUM CHL 0.9% 100 ML IV ONE (11:45)
[2020-04-26 13:00] VITALS: BP 114/77
[2020-04-26 17:00] VITALS: BP 108/76
[2020-04-26] MEDS ORDERED: PPN PER PHARMACY IV NR ×8 (20:00)
[2020-04-27] MEDS: PIPERACILLIN-TAZOB 2.25GM 50 ML IV SCH ×4 (00:12→17:02)
[2020-04-27] MEDS: ACCU-CHEK COMFORT CURVE STRIP VI SCH ×4 (00:13→17:11)
[2020-04-27] MEDS: InsuLIN REG 1unit/0.01ml Soln (100units/ml) SC SCH ×4 (05:48→17:11)
[2020-04-27] MEDS: SODIUM CHLOR 0.9% PF (SALINE LOCK) 10ML VIAL/SYR IV SCH ×3 (05:48→22:37)
[2020-04-27] MEDS: ALBUTEROL SULF HFA 90MCG INH 200DOSE IN SCH ×3 (05:54→21:44)
[2020-04-27 06:00] VITALS: BP 151/103
[2020-04-27 08:19] LABS: Potassium 3.8 mmol/L (3.5-5.1)
[2020-04-27 08:25] LABS: Albumin 2.6 g/dL (3.4-5.0); BUN/Creatinine Ratio 28.4; Bilirubin, Total 3.5 mg/dL (0.2-1.0); Calcium 8.2 mg/dL (8.5-10.1); Magnesium 2.3 mg/dL (1.6-2.6); Phosphorus 2.8 mg/dL (2.5-4.90); Total Protein 5.4 g/dL (6.4-8.2)
[2020-04-27 08:43] VITALS: BP 106/94
[2020-04-27] MEDS: ASCORBIC ACID 1,000 MG TAB PO SCH (10:00)
[2020-04-27] MEDS: MULTIPLE VITAMIN TAB PO SCH (10:00)
[2020-04-27] MEDS: CHOLECALCIFEROL (VITD3) 1,000UNIT=25mCg TAB PO SCH (10:00)
[2020-04-27] MEDS: ZINC SULFATE 220mg CAP or TAB PO SCH (10:00)
[2020-04-27] MEDS: MIDODRINE HCL 10 MG TAB PO SCH ×2 (10:04→18:00)
[2020-04-27] MEDS: DexAMETHasone SOD PHOS 10MG/1ML VIAL INJ IV SCH (10:05)
[2020-04-27] MEDS: AMIODARONE HCL 200 MG TAB PO SCH ×2 (10:05→22:36)
[2020-04-27] MEDS: FLUDROCORTISONE ACETATE 0.1 MG TAB PO SCH ×2 (10:05→22:36)
[2020-04-27] MEDS: PANTOPRAZOLE 40 MG/10 ML VIAL INJ IV SCH (10:05)
[2020-04-27 12:18] VITALS: BP 93/63
[2020-04-27 16:55] VITALS: BP 89/59
[2020-04-27] MEDS ORDERED: REMDESIVIR PER PHARMACY IV SCH (17:00)
[2020-04-27] MEDS ORDERED: PPN PER PHARMACY IV NR ×9 (20:00)
[2020-04-27 23:16] VITALS: BP 104/62
[2020-04-28] MEDS: ACCU-CHEK COMFORT CURVE STRIP VI SCH ×4 (00:17→17:58)
[2020-04-28] MEDS: PIPERACILLIN-TAZOB 2.25GM 50 ML IV SCH ×5 (00:17→23:55)
[2020-04-28 05:00] VITALS: BP 100/66
[2020-04-28] MEDS: InsuLIN REG 1unit/0.01ml Soln (100units/ml) SC SCH ×4 (06:00→17:58)
[2020-04-28] MEDS: ALBUTEROL SULF HFA 90MCG INH 200DOSE IN SCH ×3 (06:00→21:15)
[2020-04-28 06:28] LABS: Potassium 4.1 mmol/L (3.5-5.1)
[2020-04-28] MEDS: SODIUM CHLOR 0.9% PF (SALINE LOCK) 10ML VIAL/SYR IV SCH ×3 (06:35→21:11)
[2020-04-28 06:40] LABS: Albumin 2.5 g/dL (3.4-5.0); BUN/Creatinine Ratio 30.5; Bilirubin, Total 4.2 mg/dL (0.2-1.0); Calcium 8.3 mg/dL (8.5-10.1); Magnesium 2.2 mg/dL (1.6-2.6); Total Protein 5.5 g/dL (6.4-8.2)
[2020-04-28 09:00] VITALS: BP 122/77
[2020-04-28] MEDS: MULTIPLE VITAMIN TAB PO SCH (10:00)
[2020-04-28] MEDS: ASCORBIC ACID 1,000 MG TAB PO SCH (10:00)
[2020-04-28] MEDS: CHOLECALCIFEROL (VITD3) 1,000UNIT=25mCg TAB PO SCH (10:00)
[2020-04-28] MEDS: ZINC SULFATE 220mg CAP or TAB PO SCH (10:00)
[2020-04-28] MEDS: DexAMETHasone SOD PHOS 10MG/1ML VIAL INJ IV SCH (10:43)
[2020-04-28] MEDS: PANTOPRAZOLE 40 MG/10 ML VIAL INJ IV SCH (10:43)
[2020-04-28] MEDS: MIDODRINE HCL 10 MG TAB PO SCH ×2 (10:43→18:01)
[2020-04-28] MEDS: FLUDROCORTISONE ACETATE 0.1 MG TAB PO SCH ×2 (10:44→21:04)
[2020-04-28] MEDS: AMIODARONE HCL 200 MG TAB PO SCH ×2 (10:44→21:05)
[2020-04-28 13:00] VITALS: BP 107/70
[2020-04-28] MEDS ORDERED: PPN PER PHARMACY IV NR ×9 (20:00)
[2020-04-28 22:00] VITALS: BP 111/59
[2020-04-28 23:43] VITALS: BP 107/70
[2020-04-29] MEDS: ACCU-CHEK COMFORT CURVE STRIP VI SCH ×4 (00:02→17:40)
[2020-04-29] MEDS: PIPERACILLIN-TAZOB 2.25GM 50 ML IV SCH ×2 (05:43→11:31)
[2020-04-29 05:44] VITALS: BP 117/62
[2020-04-29] MEDS: SODIUM CHLOR 0.9% PF (SALINE LOCK) 10ML VIAL/SYR IV SCH ×3 (05:44→22:39)
[2020-04-29] MEDS: InsuLIN REG 1unit/0.01ml Soln (100units/ml) SC SCH ×4 (05:44→17:40)
[2020-04-29 06:34] LABS: Potassium 4.8 mmol/L (3.5-5.1)
[2020-04-29 06:45] LABS: Albumin 1.7 g/dL (3.4-5.0); BUN/Creatinine Ratio 35.2; Bilirubin, Total 4.9 mg/dL (0.2-1.0); Calcium 7.8 mg/dL (8.5-10.1); Magnesium 2.2 mg/dL (1.6-2.6); Total Protein 5.3 g/dL (6.4-8.2)
[2020-04-29] MEDS: ALBUTEROL SULF HFA 90MCG INH 200DOSE IN SCH (06:47)
[2020-04-29 09:34] VITALS: BP 91/61
[2020-04-29] MEDS: MULTIPLE VITAMIN TAB PO SCH ×2 (10:00→10:13)
[2020-04-29] MEDS: ASCORBIC ACID 1,000 MG TAB PO SCH ×2 (10:00→10:12)
[2020-04-29] MEDS: PANTOPRAZOLE 40 MG/10 ML VIAL INJ IV SCH (10:11)
[2020-04-29] MEDS: ZINC SULFATE 220mg CAP or TAB PO SCH (10:13)
[2020-04-29] MEDS: FLUDROCORTISONE ACETATE 0.1 MG TAB PO SCH ×2 (10:13→22:39)
[2020-04-29] MEDS: CHOLECALCIFEROL (VITD3) 1,000UNIT=25mCg TAB PO SCH (10:13)
[2020-04-29] MEDS: AMIODARONE HCL 200 MG TAB PO SCH ×2 (10:13→23:04)
[2020-04-29] MEDS: DexAMETHasone SOD PHOS 10MG/1ML VIAL INJ IV SCH (10:14)
[2020-04-29] MEDS: MIDODRINE HCL 10 MG TAB PO SCH ×2 (10:18→18:00)
[2020-04-29 13:25] VITALS: BP 99/65
[2020-04-29] MEDS ORDERED: REMDESIVIR 200 MG in NS 210ml LOADING DOSE ADULT IV ONE (17:00)
[2020-04-29 17:28] VITALS: BP 94/69
[2020-04-29] MEDS ORDERED: PPN PER PHARMACY IV NR ×9 (20:00)
[2020-04-29] MEDS: ALBUTEROL SULF HFA 90MCG INH 200DOSE IN PRN (21:18)
[2020-04-29 22:00] VITALS: BP 116/91
[2020-04-30] MEDS: ACETAMINOPHEN 325 MG TAB PO PRN (02:26)
[2020-04-30 05:17] VITALS: BP 95/45
[2020-04-30] MEDS: InsuLIN REG 1unit/0.01ml Soln (100units/ml) SC SCH ×4 (06:00→18:00)
[2020-04-30] MEDS: SODIUM CHLOR 0.9% PF (SALINE LOCK) 10ML VIAL/SYR IV SCH ×3 (06:12→21:41)
[2020-04-30] MEDS: ACCU-CHEK COMFORT CURVE STRIP VI SCH ×4 (06:13→18:00)
[2020-04-30] MEDS: ALBUTEROL SULF HFA 90MCG INH 200DOSE IN PRN (07:30)
[2020-04-30 09:00] VITALS: BP 86/59
[2020-04-30] MEDS: CHOLECALCIFEROL (VITD3) 1,000UNIT=25mCg TAB PO SCH (10:00)
[2020-04-30] MEDS: MULTIPLE VITAMIN TAB PO SCH (10:00)
[2020-04-30] MEDS: ASCORBIC ACID 1,000 MG TAB PO SCH (10:00)
[2020-04-30] MEDS: DexAMETHasone SOD PHOS 10MG/1ML VIAL INJ IV SCH (11:06)
[2020-04-30] MEDS: PANTOPRAZOLE 40 MG/10 ML VIAL INJ IV SCH (11:06)
[2020-04-30] MEDS: AMIODARONE HCL 200 MG TAB PO SCH ×2 (11:06→21:41)
[2020-04-30] MEDS: ZINC SULFATE 220mg CAP or TAB PO SCH (11:32)
[2020-04-30] MEDS: FLUDROCORTISONE ACETATE 0.1 MG TAB PO SCH ×2 (11:32→21:41)
[2020-04-30 12:39] VITALS: BP 171/121
[2020-04-30 17:00] VITALS: BP 85/50
[2020-04-30] MEDS: MIDODRINE HCL 10 MG TAB PO SCH (18:00)
[2020-04-30] MEDS ORDERED: ALBUMIN 25% 100 ML IV ONE ×2 (18:00→20:00)
[2020-04-30] MEDS: REMDESIVIR 100 MG in SODIUM CHL 0.9% 250 ML IV SCH (18:00)
[2020-04-30 22:00] VITALS: BP 112/63
[2020-05-01] MEDS: ACCU-CHEK COMFORT CURVE STRIP VI SCH ×4 (00:16→17:08)
[2020-05-01] MEDS: ACETAMINOPHEN 325 MG TAB PO PRN (02:48)
[2020-05-01 05:47] VITALS: BP 101/59
[2020-05-01] MEDS: InsuLIN REG 1unit/0.01ml Soln (100units/ml) SC SCH ×4 (06:00→17:09)
[2020-05-01] MEDS: SODIUM CHLOR 0.9% PF (SALINE LOCK) 10ML VIAL/SYR IV SCH ×2 (06:18→14:00)
[2020-05-01 09:00] VITALS: BP 93/64
[2020-05-01] MEDS: MIDODRINE HCL 10 MG TAB PO SCH ×2 (10:47→17:54)
[2020-05-01] MEDS: DexAMETHasone SOD PHOS 10MG/1ML VIAL INJ IV SCH (10:47)
[2020-05-01] MEDS: ASCORBIC ACID 1,000 MG TAB PO SCH (10:48)
[2020-05-01] MEDS: FLUDROCORTISONE ACETATE 0.1 MG TAB PO SCH ×2 (10:48→22:49)
[2020-05-01] MEDS: ZINC SULFATE 220mg CAP or TAB PO SCH (10:48)
[2020-05-01] MEDS: PANTOPRAZOLE 40 MG/10 ML VIAL INJ IV SCH (10:48)
[2020-05-01] MEDS: CHOLECALCIFEROL (VITD3) 1,000UNIT=25mCg TAB PO SCH (10:49)
[2020-05-01] MEDS: MULTIPLE VITAMIN TAB PO SCH (10:49)
[2020-05-01] MEDS: AMIODARONE HCL 200 MG TAB PO SCH ×2 (11:29→22:49)
[2020-05-01 13:11] VITALS: BP 98/59
[2020-05-01] MEDS: ALBUTEROL SULF HFA 90MCG INH 200DOSE IN PRN ×2 (16:01→19:46)
[2020-05-01 16:37] VITALS: BP 93/54
[2020-05-01] MEDS: REMDESIVIR 100 MG in SODIUM CHL 0.9% 250 ML IV SCH (17:10)
[2020-05-01 22:00] VITALS: BP 108/73
[2020-05-02] MEDS: ACCU-CHEK COMFORT CURVE STRIP VI SCH ×5 (00:27→23:31)
[2020-05-02] MEDS: SODIUM CHLOR 0.9% PF (SALINE LOCK) 10ML VIAL/SYR IV SCH ×4 (00:28→23:30)
[2020-05-02] MEDS: ACETAMINOPHEN 325 MG TAB PO PRN (02:33)
[2020-05-02 05:00] VITALS: BP 163/90
[2020-05-02] MEDS: InsuLIN REG 1unit/0.01ml Soln (100units/ml) SC SCH ×5 (06:00→23:31)
[2020-05-02 09:00] VITALS: BP 84/65
[2020-05-02] MEDS: MIDODRINE HCL 10 MG TAB PO SCH ×3 (10:27→18:27)
[2020-05-02] MEDS: HYDROcodone-ACET 5/325MG TAB PO PRN ×2 (10:28→19:34)
[2020-05-02] MEDS: AMIODARONE HCL 200 MG TAB PO SCH ×2 (10:28→23:31)
[2020-05-02] MEDS: FLUDROCORTISONE ACETATE 0.1 MG TAB PO SCH ×2 (10:28→23:31)
[2020-05-02] MEDS: PANTOPRAZOLE 40 MG/10 ML VIAL INJ IV SCH (10:28)
[2020-05-02] MEDS: ZINC SULFATE 220mg CAP or TAB PO SCH (10:28)
[2020-05-02] MEDS: DexAMETHasone SOD PHOS 10MG/1ML VIAL INJ IV SCH (10:28)
[2020-05-02] MEDS: MULTIPLE VITAMIN TAB PO SCH (10:29)
[2020-05-02] MEDS: ASCORBIC ACID 1,000 MG TAB PO SCH (10:29)
[2020-05-02] MEDS: CHOLECALCIFEROL (VITD3) 1,000UNIT=25mCg TAB PO SCH (10:29)
[2020-05-02] MEDS ORDERED: FUROSEMIDE 40 MG/4 ML VIAL IV ONE (10:30)
[2020-05-02 12:17] LABS: Hematocrit 39.3 % (41.0-53.0); Hemoglobin 13.6 g/dL (13.5-17.5); Mean Corpuscular Hemoglobin 30.7 pg (28.0-32.0); Mean Corpuscular Hgb Conc. 34.5 g/dL (32.0-36.0); Platelet Count (auto) 194 10^3/uL (140-450); Red Blood Cells 4.42 10^6/uL (4.5-5.90); Red Cell Distribution Width 19.5 % (11.8-14.3); White Blood Cell 22.1 10^3/uL (4.4-10.8)
[2020-05-02 12:24] LABS: Basophils % (manual) 0 (0.0-2.0); Blast Cells 0; Eosinophils % (manual) 0 (0-7); Metamyelocytes % 0; Promyelocytes % 0; Reactive Lymphocytes 0
[2020-05-02 12:32] LABS: Albumin 2.3 g/dL (3.4-5.0); Calcium 8.2 mg/dL (8.5-10.1); Potassium 3.6 mmol/L (3.5-5.1)
[2020-05-02 12:38] LABS: BUN/Creatinine Ratio 48.1; Bilirubin, Total 5.3 mg/dL (0.2-1.0); Total Protein 5.1 g/dL (6.4-8.2)
[2020-05-02 13:00] VITALS: BP 111/39
[2020-05-02 13:18] LABS: Band Neutrophils % (manual) 3; Lymphocytes % (manual) 2 (10.0-50.0); Monocytes % (manual) 2 (0-12); Myelocytes % 1
[2020-05-02] MEDS: ALBUMIN 25% 100 ML IV SCH ×3 (16:03→18:00)
[2020-05-02] MEDS ORDERED: ALBUMIN 25% 50 ML IV ONE ×2 (16:19→17:34)
[2020-05-02 17:00] VITALS: BP 96/58
[2020-05-02] MEDS: REMDESIVIR 100 MG in SODIUM CHL 0.9% 250 ML IV SCH (20:39)
[2020-05-02 22:00] VITALS: BP 92/61
[2020-05-03] MEDS: HYDROcodone-ACET 5/325MG TAB PO PRN ×2 (01:44→16:27)
[2020-05-03] MEDS: ALPRAZolam 0.5 MG TAB PO PRN ×2 (02:57→20:15)
[2020-05-03 05:00] VITALS: BP 98/55
[2020-05-03] MEDS: InsuLIN REG 1unit/0.01ml Soln (100units/ml) SC SCH ×3 (06:00→18:00)
[2020-05-03] MEDS: ACCU-CHEK COMFORT CURVE STRIP VI SCH ×3 (06:25→18:16)
[2020-05-03] MEDS: SODIUM CHLOR 0.9% PF (SALINE LOCK) 10ML VIAL/SYR IV SCH ×3 (06:28→23:40)
[2020-05-03 08:00] VITALS: BP 99/58
[2020-05-03] MEDS: MIDODRINE HCL 10 MG TAB PO SCH ×2 (08:00→19:22)
[2020-05-03] MEDS: DexAMETHasone SOD PHOS 10MG/1ML VIAL INJ IV SCH (10:03)
[2020-05-03] MEDS: PANTOPRAZOLE 40 MG/10 ML VIAL INJ IV SCH (10:03)
[2020-05-03] MEDS: CHOLECALCIFEROL (VITD3) 1,000UNIT=25mCg TAB PO SCH (10:04)
[2020-05-03] MEDS: FLUDROCORTISONE ACETATE 0.1 MG TAB PO SCH ×2 (10:08→21:39)
[2020-05-03] MEDS: ZINC SULFATE 220mg CAP or TAB PO SCH (10:08)
[2020-05-03] MEDS: MULTIPLE VITAMIN TAB PO SCH (10:08)
[2020-05-03] MEDS: ASCORBIC ACID 1,000 MG TAB PO SCH (10:08)
[2020-05-03] MEDS: AMIODARONE HCL 200 MG TAB PO SCH ×2 (10:11→21:39)
[2020-05-03 11:57] VITALS: BP 102/58
[2020-05-03 17:04] VITALS: BP 104/54
[2020-05-03] MEDS: REMDESIVIR 100 MG in SODIUM CHL 0.9% 250 ML IV SCH (17:15)
[2020-05-03 22:00] VITALS: BP 101/64
[2020-05-03] MEDS: SOTALOL HCL 80 MG TAB PO SCH (23:52)
[2020-05-04] VITALS (9 sets, daily range): BP systolic 96–168; BP diastolic 43–116
[2020-05-04] MEDS: ACCU-CHEK COMFORT CURVE STRIP VI SCH ×5 (00:19→23:01)
[2020-05-04] MEDS: HYDROcodone-ACET 5/325MG TAB PO PRN (00:22)
[2020-05-04] MEDS: ALBUTEROL SULF HFA 90MCG INH 200DOSE IN PRN ×2 (03:08→06:24)
[2020-05-04] MEDS: InsuLIN REG 1unit/0.01ml Soln (100units/ml) SC SCH ×5 (05:43→23:01)
[2020-05-04] MEDS: SODIUM CHLOR 0.9% PF (SALINE LOCK) 10ML VIAL/SYR IV SCH ×3 (06:02→20:59)
[2020-05-04 06:58] LABS: Albumin 2.6 g/dL (3.4-5.0); Calcium 8.3 mg/dL (8.5-10.1); Potassium 3.7 mmol/L (3.5-5.1)
[2020-05-04 07:03] LABS: Bilirubin, Total 6.8 mg/dL (0.2-1.0); Total Protein 5.3 g/dL (6.4-8.2)
[2020-05-04] MEDS ORDERED: ENOXAPARIN SOD 30 MG/0.3 ML SYRINGE IV ONE (07:30)
[2020-05-04] MEDS: MIDODRINE HCL 10 MG TAB PO SCH ×2 (08:00→20:58)
[2020-05-04] MEDS: CHOLECALCIFEROL (VITD3) 1,000UNIT=25mCg TAB PO SCH (09:20)
[2020-05-04] MEDS: MULTIPLE VITAMIN TAB PO SCH (09:20)
[2020-05-04] MEDS: DexAMETHasone SOD PHOS 10MG/1ML VIAL INJ IV SCH (09:20)
[2020-05-04] MEDS: ZINC SULFATE 220mg CAP or TAB PO SCH (09:20)
[2020-05-04] MEDS: PANTOPRAZOLE 40 MG/10 ML VIAL INJ IV SCH (09:20)
[2020-05-04] MEDS: ASCORBIC ACID 1,000 MG TAB PO SCH (09:21)
[2020-05-04] MEDS: FLUDROCORTISONE ACETATE 0.1 MG TAB PO SCH ×2 (09:21→20:59)
[2020-05-04] MEDS: SOTALOL HCL 80 MG TAB PO SCH ×2 (09:26→20:59)
[2020-05-04] MEDS: DEXTROSE (50%) 50ML SYRG IV SCH ×2 (11:55→12:12)
[2020-05-04] MEDS: DEXTROSE 10% 1,000 ML IV SCH ×2 (12:49→22:35)
[2020-05-04] MEDS ORDERED: SODIUM CHLORIDE 0.9% 1,000 ML IV SCH (13:45)
[2020-05-04] MEDS ORDERED: D5W/SOD CHL 0.45% 1,000 ML IV ONE (13:45)
[2020-05-04] MEDS ORDERED: AZTREONAM 1GM INJ 1 GM in D5W 5% 50 ML IV SCH (14:00)
[2020-05-04] MEDS: methylPREDNISolone SOD SUCC 40 MG/ML VL IV SCH ×2 (14:40→19:38)
[2020-05-04] MEDS ORDERED: SODIUM BICARBONATE 50ML VIAL 50 ML in D5W/SOD CHL 0.45% 1,000 ML IV ONE (17:45)
[2020-05-04] MEDS: AZTREONAM 1GM INJ 1 GM in D5W 5% 50 ML IV SCH ×2 (18:06→21:48)
[2020-05-04] MEDS: DEXTROSE (50%) 50ML SYRG IV PRN ×2 (19:39→23:01)
[2020-05-04] MEDS: ALPRAZolam 0.5 MG TAB PO PRN (20:58)
[2020-05-04] MEDS: ALBUMIN 25% 100 ML IV SCH (23:12)
[2020-05-05] VITALS (57 sets, daily range): BP systolic 52–104; BP diastolic 13–77
[2020-05-05] MEDS: ALBUMIN 25% 100 ML IV SCH (02:11)
[2020-05-05] MEDS: InsuLIN REG 1unit/0.01ml Soln (100units/ml) SC SCH ×5 (04:00→20:00)
[2020-05-05] MEDS: ACCU-CHEK COMFORT CURVE STRIP VI SCH ×5 (04:25→20:16)
[2020-05-05] MEDS: AZTREONAM 1GM INJ 1 GM in D5W 5% 50 ML IV SCH ×3 (06:00→21:03)
[2020-05-05] MEDS: SODIUM CHLOR 0.9% PF (SALINE LOCK) 10ML VIAL/SYR IV SCH ×3 (06:00→21:03)
[2020-05-05] MEDS: methylPREDNISolone SOD SUCC 40 MG/ML VL IV SCH ×3 (06:00→21:04)
[2020-05-05] MEDS: MIDODRINE HCL 10 MG TAB PO SCH ×2 (08:00→18:00)
[2020-05-05] MEDS: NOREPINEPHRINE 8 MG/250ML KIT 250 ML IV SCH ×3 (09:41→20:34)
[2020-05-05] MEDS ORDERED: NOREPINEPHRINE 8 MG/250ML KIT 250 ML IV ONE (09:41)
[2020-05-05] MEDS: ASCORBIC ACID 1,000 MG TAB PO SCH (10:00)
[2020-05-05] MEDS: MULTIPLE VITAMIN TAB PO SCH (10:00)
[2020-05-05] MEDS: SOTALOL HCL 80 MG TAB PO SCH ×2 (10:00→20:56)
[2020-05-05] MEDS: CHOLECALCIFEROL (VITD3) 1,000UNIT=25mCg TAB PO SCH (10:00)
[2020-05-05] MEDS: ZINC SULFATE 220mg CAP or TAB PO SCH (10:00)
[2020-05-05] MEDS: FLUDROCORTISONE ACETATE 0.1 MG TAB PO SCH ×2 (10:00→20:57)
[2020-05-05] MEDS: PANTOPRAZOLE 40 MG/10 ML VIAL INJ IV SCH (10:20)
[2020-05-05] MEDS: DEXTROSE 10% 1,000 ML IV SCH (12:00)
[2020-05-05 14:24] LABS: INR 2.2 (0.9-1.15)
[2020-05-05 14:31] LABS: Partial Thromboplastin Time 82.3 sec (23.0-31.2)
[2020-05-06] VITALS (38 sets, daily range): BP systolic 47–126; BP diastolic 10–75
[2020-05-06] MEDS: ACCU-CHEK COMFORT CURVE STRIP VI SCH ×2 (00:29→04:36)
[2020-05-06] MEDS: NOREPINEPHRINE 8 MG/250ML KIT 250 ML IV SCH ×2 (01:22→05:44)
[2020-05-06] MEDS: DEXTROSE 10% 1,000 ML IV SCH (01:23)
[2020-05-06] MEDS: InsuLIN REG 1unit/0.01ml Soln (100units/ml) SC SCH ×2 (04:00)
[2020-05-06] MEDS: AZTREONAM 1GM INJ 1 GM in D5W 5% 50 ML IV SCH (05:06)
[2020-05-06] MEDS: SODIUM CHLOR 0.9% PF (SALINE LOCK) 10ML VIAL/SYR IV SCH (05:06)
[2020-05-06] MEDS: methylPREDNISolone SOD SUCC 40 MG/ML VL IV SCH (05:06)
[2020-05-06] MEDS ORDERED: EPINEPHrine HCL 1 MG/10 ML SYRG IV ONE (14:12)
[2020-05-06] MEDS ORDERED: DEXTROSE (50%) 50ML SYRG IV ONE (14:12)
== END 2020-05-06 14:13 | DRG 871 ==
LOC: ER 20:42 → EDBD 20:42 → TELE 20:43 → ICU WEST 04-18 23:00 → TELE-EAST 04-25 22:25 → EAST 04-27 23:49 → TELE-E-ADS 04-28 02:22 → TELE-EAST 05-01 23:28 → DOU IN ICU 05-04 10:23
PROVIDERS: ADMIT Internal Medicine Cardiovascular Disease; ATTEND Internal Medicine Cardiovascular Disease
PROC: 0W9G3ZZ Drainage of Peritoneal Cavity, Percutaneous Approach (ICD-10-PCS; principal; 2020-04-19)
PROC: 3E0336Z Introduction of Nutritional Substance into Peripheral Vein, Percutaneous Approach (ICD-10-PCS; 2020-04-26)
PROC: XW033E5 Introduction of Remdesivir Anti-infective into Peripheral Vein, Percutaneous Approach, New Technology Group 5 (ICD-10-PCS; 2020-04-29)
PROC: 5A09357 Assistance with Respiratory Ventilation, Less than 24 Consecutive Hours, Continuous Positive Airway Pressure (ICD-10-PCS; 2020-05-05)
DX: A41.89 Other specified sepsis (principal); U07.1 COVID-19; J12.89 Other viral pneumonia; J96.91 Respiratory failure, unspecified with hypoxia; D68.59 Other primary thrombophilia; I42.0 Dilated cardiomyopathy; K76.6 Portal hypertension; N17.9 Acute kidney failure, unspecified; E87.4 Mixed disorder of acid-base balance; E44.1 Mild protein-calorie malnutrition; K70.31 Alcoholic cirrhosis of liver with ascites; F41.9 Anxiety disorder, unspecified; K72.90 Hepatic failure, unspecified without coma; E16.2 Hypoglycemia, unspecified; I46.9 Cardiac arrest, cause unspecified; Z66 Do not resuscitate; I48.91 Unspecified atrial fibrillation; I11.0 Hypertensive heart disease with heart failure; M19.90 Unspecified osteoarthritis, unspecified site; I50.9 Heart failure, unspecified; I25.10 Atherosclerotic heart disease of native coronary artery without angina pectoris; Z79.899 Other long term (current) drug therapy; I25.2 Old myocardial infarction; Z86.73 Personal history of transient ischemic attack (TIA), and cerebral infarction without residual deficits; Z90.49 Acquired absence of other specified parts of digestive tract; Z86.718 Personal history of other venous thrombosis and embolism; Z82.49 Family history of ischemic heart disease and other diseases of the circulatory system; Z95.810 Presence of automatic (implantable) cardiac defibrillator
CPT/HCPCS: 10022; 36415; 36600; 70450; 71045; 76700; 76942; 80048; 80053; 80202; 82040; 82140; 82805; 82962; 83735; 83880; 84100; 84478; 84484; 85007; 85025; 85027; 85048; 85610; 85730; 87045; 87081; 87426; 87427; 87493; 93005; 93970; 94640; 94660; 96374; 96375; 96376; C9113; G0378; J1100; J1815; J2405; J2543; J7060; P9047